=== PATIENT | female | born 1945 | race Caucasian/White ===

== ENCOUNTER → 2017-04-02 09:01 | Outpatient (CLI) | payer MEDICARE, SELFPAY ==
[2017-04-02 14:05] LABS: Alanine Aminotransferase 19 U/L (12-78); Albumin Level 3.1 gm/dL (3.4-5.0); Albumin/Globulin Ratio 0.9 (1.1-1.8); Alkaline Phosphatase 61 U/L (46-116); Anion Gap 12.1 mEq/L (5-15); Aspartate Amino Transferase 17 U/L (15-37); Bilirubin,Total 0.3 mg/dL (0.2-1.0); Blood Urea Nitrogen 25 mg/dL (7-18); Calcium 8.7 mg/dL (8.5-10.1); Carbon Dioxide 29 mmol/L (21.0-32.0); Chloride 106 mmol/L (98-107); Creatinine,Serum 1.26 mg/dL (0.55-1.02); Estimated Glomerular Filt Rate 42 ml/min (>60); GFR (African American) 51 ML/MIN (>60); Globulin 3.6 gm/dl (1.3-3.2); Glucose 126 mg/dL (74-106); Potassium 4.1 mmoL/L (3.5-5.1); Sodium 143 mmol/L (136-145); Total Protein,Serum 6.7 gm/dL (6.4-8.2)
[2017-04-02 14:43] LABS: Hemoglobin A1C 5.8 % (0.0-7.0)
== END ==
PROVIDERS: PCP Internal Medicine Adolescent Medicine; Visit Provider Internal Medicine Adolescent Medicine
DX: E11.65 Type 2 diabetes mellitus with hyperglycemia (principal); I10 Essential (primary) hypertension
CPT/HCPCS: 36415; 80053; 83036

== ENCOUNTER 2017-05-21 13:00 | Outpatient (RCR) | payer MEDICARE, SELFPAY ==
--- NOTE | 2017-04-02 13:46 | HMH.PTOPWND ---
Rehab Outpt Wound Evaluation Rehab OP Wound Evaluation Start: 04/02/17 13:32 Freq: Status: Active Protocol: Document 04/02/17 13:32 PHORMARIELOS (Rec: 04/02/17 13:45 PHORNE [id number]) Electronically Signed By Go Benz, PT 04/02/17 13:32 Subjective/History History History Pt presents with c/o mild discomfort ion the left axillary region and left UE ~ 2 yrs s/p left side lumpectomy with ~ 20 lymph nodes resected. Pt reports she underwent 30 radiation treatments after surgery, but no chemotherapy. She reports no current pain. PMH: HTN, DM, ADRIANO. Subjective Subjective Pt currently reports only minimal discomfort with certain activities using the left UE, but does have residual numbness throughout the left shld since her surgery. Lymphedema Eval Classification of Lymphedema Secondary Lymphedema Yes Post-Surgical Lymphedema Yes Stage of Lymphedema Lymphedema stages Stage 0 (subjective c/o heaviness and aching) Skin Changes Dry Skin Yes Pain Scale Pain Scale (0-10) 0 Radiation Therapy Has received radiation therapy yes Affected Extremities Areas Affected by Lymphedema/Edema Left Upper Extremity Wound Problems/Impairments Impairments Problems/Impairmments Increased Edema Lymphedema Present Impaired Self Care/Self Management Prognosis Rehab Potential Good Clinical Impression Consistent with Diagnosis Yes Short Term Goals Number of Weeks 4 Patient to be Ind w/ Lymphedema Self Yes Massage Technique Decrease Girth Measurments by (cm) Yes: by 5 cm Investigator Fraud Goals Number of Weeks 8 Patient to be Ind w/ Lymphedema Yes Management Patient to Adhere Lymphedema Precautions Yes Decrease Girth Measurments by (cm) Yes: by 10 cm Outpatient Therapy Plan of Care Treatment Plan May Include Therapeutic Exercise Including Home Yes Exercise Program Manual Therapy Techniques Yes Neuromuscular Re-education Yes Massage Yes Manual Lymphatic Drainage Yes Eval/Re-Eval Yes Frequency Times per week 2-3 Tavo
== END 2017-05-21 13:01 | disposition home or self-care (01) ==
LOC: PT 13:00
PROVIDERS: Family Provider Internal Medicine Adolescent Medicine; PCP Internal Medicine Adolescent Medicine; Visit Provider Nurse Practitioner
DX: I89.0 Lymphedema, not elsewhere classified (principal)
CPT/HCPCS: 97110; 97140; 97162

== ENCOUNTER 2017-08-12 23:12 | Observation (INO) ==
[2017-08-12 23:37] LABS: Basophils % 0.3 % (0.1-2.0); Eosinophils # 0.1 K/mm3 (0.0-0.4); Eosinophils % 1.3 % (0.1-12.0); Hematocrit 34.5 % (37.0-47.0); Hemoglobin 10.8 g/dL (12.2-16.2); Lymphocytes # 1.6 K/mm3 (0.7-4.5); Lymphocytes % 21.5 K/mm3 (10-50); Mean Corpuscular HGB Conc 31.4 g/dL (31.8-35.4); Mean Corpuscular Hemoglobin 28.6 pg (27.0-31.2); Mean Platelet Volume 7.1 fl (7.4-10.4); Monocytes # 0.5 K/mm3 (0.1-1.0); Monocytes % 6.2 % (1.7-9.3); Neutrophils # 5.3 K/mm3 (1.8-7.8); Neutrophils % 70.8 % (37.0-80.0); Platelet Count 301 K/mm3 (142-424); Red Blood Count 3.79 M/mm3 (4.20-5.40); Red Cell Distribution Width 13.8 % (11.5-17.5); White Blood Count 7.5 K/mm3 (4.8-10.8)
[2017-08-12 23:54] LABS: Amylase 36 U/L (25-125); Anion Gap 11.8 mEq/L (5-15); Blood Urea Nitrogen 20 mg/dL (7-18); Calcium 9.5 mg/dL (8.5-10.1); Carbon Dioxide 29 mmol/L (21.0-32.0); Chloride 103 mmol/L (98-107); Glucose 175 mg/dL (74-106); Lipase 302 u/L (73-393); Potassium 3.8 mmoL/L (3.5-5.1); Sodium 140 mmol/L (136-145)
[2017-08-13 00:01] LABS: Microscopic, Urine URINE MICROSCOPIC (MICROSCOPIC)
[2017-08-13 00:03] LABS: Appearance,Urine CLEAR (Clear); Bilirubin,Urine Negative (Negative); Blood, Urine TRACE-I (Negative); Color,Urine YELLOW (Yellow); Glucose,Urine (UA) Negative (Negative); Ketones,Urine Negative (Negative); Leukocyte Esterase,Urine TRACE (Negative); Protein,Urine TRACE (Negative); Specific Gravity, Urine 1.015 (1.005-1.030); Urobilinogen,Urine 0.2 EU/dl (0.2)
[2017-08-13 00:20] LABS: Bacteria,Urine 1+ /lpf; Hyaline Casts,Urine Occasional #/lpf (0); Mucus,Urine 1+ /lpf
--- NOTE | 2017-08-13 00:57 | Emergency Department Note ---
ED Disposition Clinical Impression: Renal insufficiency, Heart murmur, systolic Cholelithiasis Qualifiers: Cholelithiasis location: gallbladder Cholecystitis presence: without cholecystitis Biliary obstruction: without biliary obstruction Qualified Code(s) : K80.20 - Calculus of gallbladder without cholecystitis without obstruction Anemia Qualifiers: Anemia type: unspecified type Qualified Code(s): D64.9 - Anemia, unspecified Disposition: Admitted as Observation Condition on Discharge: Good - Critical Care Critical Care Time: No Attestation: On 08/12/17, the high probability of a clinically significant, sudden or life threatening deterioration of the following system(s) required my full and direct attention, intervention and personal management. The time I documented below is in addition to time spent performing reported procedures but includes the following listed in this critical care notation. Medical Decision Making - Medical Records Medical records reviewed: Yes: I reviewed the patient's medical records. - Lobo Inquiry Pt receiving controlled substance: No Vital Signs: 08/12/17 23:13 08/12/17 23:16 08/13/17 00:09 Temperature 98.2 F 98.2 F Temperature Source Oral Oral Pulse Rate [Right Brachial] 111 H 111 H 84 Respiratory Rate 18 18 16 Blood Pressure [Right Arm] 201/98 197/160 145/76 Blood Pressure Mean [Right Arm] 132 172 99 Blood Pressure Source [Right Arm] Automatic Cuff Automatic Cuff Blood Pressure Position [Right Arm] Sitting 02 Sat by Pulse Oximetry 92 L 92 L 94 L Oxygen Delivery Method Room Air Room Air Room Air 08/13/17 01:30 Temperature 98.9 F Temperature Source Oral Pulse Rate [Right Brachial] 78 Respiratory Rate 16 Blood Pressure [Right Arm] 157/89 Blood Pressure Mean [Right Arm] 111 Blood Pressure Source [Right Arm] Blood Pressure Position [Right Arm] 02 Sat by Pulse Oximetry 95 Oxygen Delivery Method Room Air - Lab Data Lab results reviewed: Yes: I reviewed the patient's lab results. Lab Results 08/12/17 23:18: POC Glucose 180 H 08/12/17 23:30: WBC 7.5, RBC 3.79 L, Hgb 10.8 L, Hct 34.5 L, MCV 91.0, MCH 28.6 , MCHC 31.4 L, RDW 13.8, Plt Count 301, MPV 7.1 L, Neut % (Auto) 70.8, Lymph % ( Auto) 21.5, [place] % (Auto) 6.2, Eos % (Auto) 1.3, Baso % (Auto) 0.3, Neut # (Auto ) 5.3, Lymph # (Auto) 1.6, [place] # (Auto) 0.5, Eos # (Auto) 0.1, Baso # (Auto) 0.0 08/12/17 23:30: Sodium 140, Potassium 3.8, Chloride 103, Carbon Dioxide 29, Anion Gap 11.8, BUN 20 H, Creatinine 1.54 H, Estimated Creat Clear 57, Estimated GFR 33 L, Est GFR ( Amer) 40 L, Glucose 175 H, Calcium 9.5, Troponin I < 0.02, Amylase 36, Lipase 302 08/12/17 23:58: Urine Color Yellow, Urine Appearance Clear, Urine pH 7.0, Ur Specific [place] 1.015, Urine Protein Trace, Urine Glucose (UA) Negative, Urine Ketones Negative, Urine Blood Trace-i, Urine Nitrate Negative, Urine Bilirubin Negative, Urine Urobilinogen 0.2, Ur Leukocyte Esterase Trace, Urine RBC 5-10, Urine WBC 3-5, Ur Squamous Epith Cells 3-5, Urine Bacteria 1+, Hyaline Casts Occasional, Urine Mucus 1+ Result diagrams: 08/12/17 23:30 08/12/17 23:30 Orders (Tests/Meds): ORDERS Category Date Time Status CT abdomen pelvis wo con Stat Cat Scan 08/12/17 23:23 Taken XR chest 2V Stat Exams 08/12/17 23:[address]/Nse Stat Y 08/12/17 23:23 Ordered - CT Data CT Scan: Abdomen, Pelvis Time Received: 01:[address] Reviewed: Yes: I have viewed the radiologist's interpretation Preliminary Findings: Abnormal (gallstones) - ECG Data Tracing #1 I reviewed this ECG and interpreted as documented below: Normal Sinus Rhythm: Yes Ischemic changes: non-specific ST-T wave changes - Physician Consults Physician Consulted: alexi Reason -: Admission Nausea/Vomiting/Diarrhea HPI - General Chief complaint: Dizziness Stated complaint: Right side pain, dizzy Time Seen by Provider: 08/13/17 00:53 Mode of Arrival: Ambulatory Source of Information: Patient, Medical Record Limitations: No Limitations Description of Symptoms (Recalled from ER Triage Doc. by RN): Reports RUQ pain that started this afternoon. Reports she has also been dizzy. Reports high blood sugar today, but reports she got it down to 133 earlier. - History of Present Illness HPI Narrative: dizzyness earlier and then rt upper abd pain with hx of gb disease MD complaint: nausea, abdominal pain Onset (ago): day(s) Associated Abdominal Pain: Yes Location of pain: RUQ Severity: severe Consistency: colicky Exacerbating factors: eating - Related Data Home Medications Medication Instructions Recorded Confirmed anastrozole 1 mg tablet 1 mg PO DAILY 08/10/17 08/12/17 carvedilol 6.25 mg tablet 6.25 mg PO DAILY 08/10/17 08/12/17 lisinopril 20 1 tab PO DAILY 08/10/17 08/12/17 mg-hydrochlorothiazide 25 mg tablet meloxicam 15 mg tablet 15 mg PO DAILY 08/10/17 08/12/17 pioglitazone 30 mg tablet 30 mg PO DAILY 08/10/17 08/12/17 Allergies Allergy/AdvReac Type Severity Reaction Status Date / Time No Known Allergies Allergy Verified 08/10/17 10:10 [facility] History I have reviewed the patient's past medical history: Yes Medical History: Reports:: Cancer, Diabetes Mellitus Type 1, Hypertension Denies:: Diabetes Mellitus Type 2, MRSA Laterality Cases: Left: Breast Biopsy Amputation: No Fractures: No - Social History Smoking Status: Never smoker Alcohol Intake: never Substance Use Type: denies use - Psychiatric History Expresses thoughts of harming self/others: None Suicide Plan Description: No Plan Family Hx:: No significant family history ROS Obtained: Yes All systems reviewed & no additional complaints - Constitutional Constitutional: Denies fever(s) - Eyes Eyes: Denies change in vision - ENT Ears, Nose, Mouth, and Throat: Denies sore throat - Cardiovascular Cardiovascular: Denies chest pain at rest - Respiratory Respiratory: No chest congestion, No cough - Gastrointestinal Gastrointestingal: Reports: as per HPI, abdominal pain, nausea, vomiting. Denies: diarrhea, black, tarry stools - Genitourinary Female Genitourinary: Denies hematuria - Musculoskeletal Musculoskeletal: Denies joint pain, Denies joint swelling - Integumentary/Breasts Skin/Breast: Denies rash - Neurologic Neurologic: Reports dizziness, Denies headache(s), Denies seizure-like activity Physical Exam - General General appearance: alert, in no apparent distress - Head Head exam: normocephalic - Eye Eye exam: Present: PERRL, EOMI. Absent: scleral icterus - ENT ENT exam: Present: mucous membranes dry - Neck Neck exam: Present: trachea midline - Respiratory Respiratory exam: Present: normal lung sounds bilaterally. Absent: respiratory distress - Cardiovascular Cardiovascular exam: Present: regular rate, systolic murmur - Abdominal Exam Abdominal exam: Present: soft, tenderness, Godwin's sign Abdominal tenderness: Present: RUQ, moderate - Extremities Exam Extremities exam: Absent: calf tenderness - Back Exam Back exam: Absent: CVA tenderness (R) - Neurological Exam Neurological exam: Present: alert, oriented X3, CN II-XII intact - Psychiatric Psychiatric exam: Present: normal affect - Skin Skin exam: Absent: rash
[2017-08-13 01:59] LABS: Bilirubin,Direct 0.3 mg/dL (0.0-0.2); Bilirubin,Indirect 0.4 mg/dL (0.0-0.9); Bilirubin,Total 0.7 mg/dL (0.2-1.0); Total Protein,Serum 7.5 gm/dL (6.4-8.2)
--- NOTE | 2017-08-13 07:07 | Consult Report ---
*Admission Date: 08/13/17 *Chief complaint: RUQ pain *History of present illness: This is a 71yo female seen in consultation from Dr. Newman for evaluation regarding gallbladder disease. She presented to the emergency department overnight with increasing pain in the right upper quadrant. She states that she has a known history of "gallbladder trouble". No jaundice. No fevers. She states that she "feels fine now". Right upper quadrant ultrasound pending. Review of Systems - Constitutional Denies chills - Eyes Denies change in vision - ENT Denies change in voice - *Cardiovascular Denies chest pain - *Respiratory Denies cough - *Gastrointestinal Reports abdominal pain - *Neurologic Reports dizziness, Denies headache(s), Denies seizure-like activity - Hematologic/Lymphatic Denies easy bleeding [facility] History Medical History: Reports:: Cancer (LYMPH NODES), Diabetes Mellitus Type 2, Hypertension Denies:: Diabetes Mellitus Type 1, MRSA Other Medical History: Reports: Anemia, Arthritis, Cataracts, Radiation Therapy , Sinus Problems Laterality Cases: Left: Breast Biopsy Other Surgeries: Yes: Hysterectomy-Total Amputation: No Fractures: No - *Social History Educational Level: Completed High School Smoking Status: Never smoker Alcohol Intake: never Substance Use Type: denies use Occupational Status: retired Housing: house - Psychiatric History Expresses thoughts of harming self/others: None Suicide Plan Description: No Plan *Family Hx:: Cancer Meds Home Medications Medication Instructions Recorded Confirmed Type anastrozole 1 mg tablet 1 mg PO DAILY 08/10/17 08/13/17 History carvedilol 6.25 mg tablet 6.25 mg PO DAILY 08/10/17 08/12/17 History lisinopril 20 1 tab PO DAILY 08/10/17 08/12/17 History mg-hydrochlorothiazide 25 mg tablet meloxicam 15 mg tablet 15 mg PO DAILY 08/10/17 08/12/17 History pioglitazone 30 mg tablet 30 mg PO DAILY 08/10/17 08/12/17 History Allergies Allergy/AdvReac Type Severity Reaction Status Date / Time No Known Allergies Allergy Verified 08/10/17 10:10 Exam Vital signs and Labs for Last 24 Hours: Temp Pulse Resp BP Pulse Ox 97.8 F 70 18 144/77 98 08/13/17 04:00 08/13/17 04:00 08/13/17 04:00 08/13/17 04:00 08/13/17 04:00 Laboratory Results - last 24 hr 08/12/17 23:18: POC Glucose 180 H 08/12/17 23:30: WBC 7.5, RBC 3.79 L, Hgb 10.8 L, Hct 34.5 L, MCV 91.0, MCH 28.6 , MCHC 31.4 L, RDW 13.8, Plt Count 301, MPV 7.1 L, Neut % (Auto) 70.8, Lymph % ( Auto) 21.5, [place] % (Auto) 6.2, Eos % (Auto) 1.3, Baso % (Auto) 0.3, Neut # (Auto ) 5.3, Lymph # (Auto) 1.6, [place] # (Auto) 0.5, Eos # (Auto) 0.1, Baso # (Auto) 0.0 08/12/17 23:30: Sodium 140, Potassium 3.8, Chloride 103, Carbon Dioxide 29, Anion Gap 11.8, BUN 20 H, Creatinine 1.54 H, Estimated Creat Clear 57, Estimated GFR 33 L, Est GFR ( Amer) 40 L, Glucose 175 H, Calcium 9.5, Troponin I < 0.02, Amylase 36, Lipase 302 08/12/17 23:58: Urine Color Yellow, Urine Appearance Clear, Urine pH 7.0, Ur Specific [place] 1.015, Urine Protein Trace, Urine Glucose (UA) Negative, Urine Ketones Negative, Urine Blood Trace-i, Urine Nitrate Negative, Urine Bilirubin Negative, Urine Urobilinogen 0.2, Ur Leukocyte Esterase Trace, Urine RBC 5-10, Urine WBC 3-5, Ur Squamous Epith Cells 3-5, Urine Bacteria 1+, Hyaline Casts Occasional, Urine Mucus 1+ 08/13/17 00:00: Total Bilirubin 0.7, Direct Bilirubin 0.3 H, Indirect Bilirubin 0.4, AST 107 H, ALT 65, Alkaline Phosphatase 76, Total Protein 7.5, Albumin 3.0 L 08/13/17 06:14: POC Glucose 134 H I & O for Last 24 hours: Intake & Output 08/10/17 08/11/17 08/12/17 08/13/17 11:59 11:59 11:59 11:59 Intake Total 184 / 184 Balance 184 / 184 Weight 235 lb 6 oz - Constitutional no acute distress - *Routine Neck Exam Present: full ROM - *Routine Cardiovascular Exam Present: RRR - *Routine Abdominal Exam Present: soft Comments: minimal TTP in epigastrum and RUQ Results - Labs 08/12/17 23:30 08/12/17 23:30 Laboratory Results - last 24 hr 08/12/17 23:18: POC Glucose 180 H 08/12/17 23:30: WBC 7.5, RBC 3.79 L, Hgb 10.8 L, Hct 34.5 L, MCV 91.0, MCH 28.6 , MCHC 31.4 L, RDW 13.8, Plt Count 301, MPV 7.1 L, Neut % (Auto) 70.8, Lymph % ( Auto) 21.5, [place] % (Auto) 6.2, Eos % (Auto) 1.3, Baso % (Auto) 0.3, Neut # (Auto ) 5.3, Lymph # (Auto) 1.6, [place] # (Auto) 0.5, Eos # (Auto) 0.1, Baso # (Auto) 0.0 08/12/17 23:30: Sodium 140, Potassium 3.8, Chloride 103, Carbon Dioxide 29, Anion Gap 11.8, BUN 20 H, Creatinine 1.54 H, Estimated Creat Clear 57, Estimated GFR 33 L, Est GFR ( Amer) 40 L, Glucose 175 H, Calcium 9.5, Troponin I < 0.02, Amylase 36, Lipase 302 08/12/17 23:58: Urine Color Yellow, Urine Appearance Clear, Urine pH 7.0, Ur Specific [place] 1.015, Urine Protein Trace, Urine Glucose (UA) Negative, Urine Ketones Negative, Urine Blood Trace-i, Urine Nitrate Negative, Urine Bilirubin Negative, Urine Urobilinogen 0.2, Ur Leukocyte Esterase Trace, Urine RBC 5-10, Urine WBC 3-5, Ur Squamous Epith Cells 3-5, Urine Bacteria 1+, Hyaline Casts Occasional, Urine Mucus 1+ 08/13/17 00:00: Total Bilirubin 0.7, Direct Bilirubin 0.3 H, Indirect Bilirubin 0.4, AST 107 H, ALT 65, Alkaline Phosphatase 76, Total Protein 7.5, Albumin 3.0 L 08/13/17 06:14: POC Glucose 134 H Assessment and Plan (1) Anemia Current visit: Yes Status: Acute Qualifiers: Anemia type: unspecified type Category: Medical Code(s): D64.9 - Anemia, unspecified further evaluation ongoing (2) Cholelithiasis Current visit: Yes Status: Acute Qualifiers: Cholelithiasis location: gallbladder Cholecystitis presence: without cholecystitis Biliary obstruction: without biliary obstruction Qualified Code(s): K80.20 - Calculus of gallbladder without cholecystitis without obstruction Category: Medical Code(s): K80.20 - Calculus of gallbladder without cholecystitis without obstruction The patient is essentially without symptoms this morning. Right upper quadrant ultrasound has been ordered and is scheduled to be performed this morning. Follow-up results of right upper quadrant ultrasound. Unless the patient develops an acute change in her overall condition, she is stable from a surgical standpoint for discharge home after ultrasound is complete with close outpatient follow-up with regard to cholelithiasis and anemia. (3) Renal insufficiency Current visit: Yes Status: Acute Category: Medical Code(s): N28.9 - Disorder of kidney and ureter, unspecified
--- NOTE | 2017-08-13 07:20 | Pharmacy Consult Notes ---
[facility] Pharmacy VTE Monitoring - Patient Demographics Admission date: 08/13/17 Report Date: 08/13/17 Time: 07:20 Allergies/Adverse Reactions: Patient Allergies No Known Allergies Allergy (Verified 08/10/17 10:10) Height: 1.73 m Weight: 106.764 kg Patient Problems: Current Active Problems Cholelithiasis (Acute) Anemia (Acute) Renal insufficiency (Acute) Heart murmur, systolic (Acute) - VTE Risk Labs: VTE Related Lab Results Hgb 10.8 g/dL (12.2-16.2) L 08/12/17 23:30 Hct 34.5 % (37.0-47.0) L 08/12/17 23:30 Plt Count 301 K/mm3 (142-424) 08/12/17 23:30 BUN 20 mg/dL (7-18) H 08/12/17 23:30 Creatinine 1.54 mg/dL (0.55-1.02) H 08/12/17 23:30 Estimated Creat Clear 57 mL/min (0-300) 08/12/17 23:30 Was VTE Risk Assessment Performed: Yes VTE Score: 2 VTE Risk Level: Low Risk Clinical Trial Participant: No - Prophylaxis VTE Prophylaxis Ordered?: Yes Types of VTE Prophylaxis: TEDS Knee High Location of Applied Device: Not Applicable
[2017-08-13 07:47] LABS: Albumin Level 2.7 gm/dL (3.4-5.0); Albumin/Globulin Ratio 0.7 (1.1-1.8); Bilirubin,Total 1.2 mg/dL (0.2-1.0); Calcium 9.2 mg/dL (8.5-10.1); Globulin 4.1 gm/dl (1.3-3.2); Total Protein,Serum 6.8 gm/dL (6.4-8.2)
--- NOTE | 2017-08-13 08:05 | H&P/Discharge Summary ---
General - General Admission date:: 08/13/17 Discharge date: 08/13/17 *Admission Date: 08/13/17 *Chief complaint: Abdominal pain *History of present illness: She presented to the emergency department overnight with increasing pain in the right upper quadrant. She states that she has a known history of "gallbladder trouble". No jaundice. No fevers. She states that she "feels fine now". [facility] History I have reviewed the patient's past medical history: Yes Medical History: Reports:: Cancer (LYMPH NODES), Diabetes Mellitus Type 2, Hypertension Denies:: Diabetes Mellitus Type 1, MRSA Other Medical History: Reports: Anemia, Arthritis, Cataracts, Radiation Therapy , Sinus Problems Laterality Cases: Left: Breast Biopsy Other Surgeries: Yes: Hysterectomy-Total Amputation: No Fractures: No - *Social History Educational Level: Completed High School Smoking Status: Never smoker Alcohol Intake: never Substance Use Type: denies use Occupational Status: retired Housing: house - Psychiatric History Expresses thoughts of harming self/others: None Suicide Plan Description: No Plan *Family Hx:: Cancer Review of Systems - Review of Systems Review of systems:: unable to obtain, other, pertinent systems reviewed and negative unless documented below - *Neurologic Reports dizziness, Denies headache(s), Denies seizure-like activity Exam Vital signs and Labs for Last 24 Hours: Temp Pulse Resp BP Pulse Ox 97.8 F 70 18 144/77 98 08/13/17 04:00 08/13/17 04:00 08/13/17 04:00 08/13/17 04:00 08/13/17 04:00 Laboratory Results - last 24 hr 08/12/17 23:18: POC Glucose 180 H 08/12/17 23:30: WBC 7.5, RBC 3.79 L, Hgb 10.8 L, Hct 34.5 L, MCV 91.0, MCH 28.6 , MCHC 31.4 L, RDW 13.8, Plt Count 301, MPV 7.1 L, Neut % (Auto) 70.8, Lymph % ( Auto) 21.5, [place] % (Auto) 6.2, Eos % (Auto) 1.3, Baso % (Auto) 0.3, Neut # (Auto ) 5.3, Lymph # (Auto) 1.6, [place] # (Auto) 0.5, Eos # (Auto) 0.1, Baso # (Auto) 0.0 08/12/17 23:30: Sodium 140, Potassium 3.8, Chloride 103, Carbon Dioxide 29, Anion Gap 11.8, BUN 20 H, Creatinine 1.54 H, Estimated Creat Clear 57, Estimated GFR 33 L, Est GFR ( Amer) 40 L, Glucose 175 H, Calcium 9.5, Troponin I < 0.02, Amylase 36, Lipase 302 08/12/17 23:58: Urine Color Yellow, Urine Appearance Clear, Urine pH 7.0, Ur Specific [place] 1.015, Urine Protein Trace, Urine Glucose (UA) Negative, Urine Ketones Negative, Urine Blood Trace-i, Urine Nitrate Negative, Urine Bilirubin Negative, Urine Urobilinogen 0.2, Ur Leukocyte Esterase Trace, Urine RBC 5-10, Urine WBC 3-5, Ur Squamous Epith Cells 3-5, Urine Bacteria 1+, Hyaline Casts Occasional, Urine Mucus 1+ 08/13/17 00:00: Total Bilirubin 0.7, Direct Bilirubin 0.3 H, Indirect Bilirubin 0.4, AST 107 H, ALT 65, Alkaline Phosphatase 76, Total Protein 7.5, Albumin 3.0 L 08/13/17 06:14: POC Glucose 134 H 08/13/17 07:04: Sodium 143, Potassium 4.0, Chloride 106, Carbon Dioxide 27, Anion Gap 14.0, BUN 18, Creatinine 1.36 H, Estimated Creat Clear 64, Estimated GFR 38 L, Est GFR ( Amer) 46 L, Glucose 136 H D, Calcium 9.2, Total Bilirubin 1.2 H, AST 192 H D, ALT 129 H D, Alkaline Phosphatase 87, Total Protein 6.8, Albumin 2.7 L, Globulin 4.1 H, Albumin/Globulin Ratio 0.7 L I & O for Last 24 hours: Intake & Output 08/10/17 08/11/17 08/12/17 08/13/17 11:59 11:59 11:59 11:59 Intake Total 184 / 184 Balance 184 / 184 Weight 235 lb 6 oz Narrative: Patient is pleasant, alert, oriented 3. Lungs are clear bilaterally, heart rate regular. Abdomen is soft, much less pain per patient. Normal bowel sounds. No edema noted. Hospital Course Hospital Course: Patient was admitted, did well overnight with no further pain. Surgery was consulted. Agree with recommendations. Plan to discharge home after ultrasound Results Labs on day of discharge: Labs from last 24 hours 08/13/17 08/13/17 08/13/17 07:04 06:14 00:00 WBC RBC Hgb Hct MCV MCH MCHC RDW Plt Count MPV Neut % (Auto) Lymph % (Auto) [place] % (Auto) Eos % (Auto) Baso % (Auto) Neut # (Auto) Lymph # (Auto) [place] # (Auto) Eos # (Auto) Baso # (Auto) Sodium 143 Potassium 4.0 Chloride 106 Carbon Dioxide 27 Anion Gap 14.0 BUN 18 Creatinine 1.36 H Estimated Creat Clear 64 Estimated GFR 38 L Est GFR ( Amer) 46 L Glucose 136 H D POC Glucose 134 H Calcium 9.2 Total Bilirubin 1.2 H 0.7 Direct Bilirubin 0.3 H Indirect Bilirubin 0.4 AST 192 H D 107 H ALT 129 H D 65 Alkaline Phosphatase 87 76 Troponin I Total Protein 6.8 7.5 Albumin 2.7 L 3.0 L Globulin 4.1 H Albumin/Globulin Ratio 0.7 L Amylase Lipase Urine Color Urine Appearance Urine pH Ur Specific [place] Urine Protein Urine Glucose (UA) Urine Ketones Urine Blood Urine Nitrate Urine Bilirubin Urine Urobilinogen Ur Leukocyte Esterase Urine RBC Urine WBC Ur Squamous Epith Cells Urine Bacteria Hyaline Casts Urine Mucus 08/12/17 08/12/17 08/12/17 23:58 23:30 23:30 WBC 7.5 RBC 3.79 L Hgb 10.8 L Hct 34.5 L MCV 91.0 MCH 28.6 MCHC 31.4 L RDW 13.8 Plt Count 301 MPV 7.1 L Neut % (Auto) 70.8 Lymph % (Auto) 21.5 [place] % (Auto) 6.2 Eos % (Auto) 1.3 Baso % (Auto) 0.3 Neut # (Auto) 5.3 Lymph # (Auto) 1.6 [place] # (Auto) 0.5 Eos # (Auto) 0.1 Baso # (Auto) 0.0 Sodium 140 Potassium 3.8 Chloride 103 Carbon Dioxide 29 Anion Gap 11.8 BUN 20 H Creatinine 1.54 H Estimated Creat Clear 57 Estimated GFR 33 L Est GFR ( Amer) 40 L Glucose 175 H POC Glucose Calcium 9.5 Total Bilirubin Direct Bilirubin Indirect Bilirubin AST ALT Alkaline Phosphatase Troponin I < 0.02 Total Protein Albumin Globulin Albumin/Globulin Ratio Amylase 36 Lipase 302 Urine Color Yellow Urine Appearance Clear Urine pH 7.0 Ur Specific [place] 1.015 Urine Protein Trace Urine Glucose (UA) Negative Urine Ketones Negative Urine Blood Trace-i Urine Nitrate Negative Urine Bilirubin Negative Urine Urobilinogen 0.2 Ur Leukocyte Esterase Trace Urine RBC 5-10 Urine WBC 3-5 Ur Squamous Epith Cells 3-5 Urine Bacteria 1+ Hyaline Casts Occasional Urine Mucus 1+ 08/12/17 23:18 WBC RBC Hgb Hct MCV MCH MCHC RDW Plt Count MPV Neut % (Auto) Lymph % (Auto) [place] % (Auto) Eos % (Auto) Baso % (Auto) Neut # (Auto) Lymph # (Auto) [place] # (Auto) Eos # (Auto) Baso # (Auto) Sodium Potassium Chloride Carbon Dioxide Anion Gap BUN Creatinine Estimated Creat Clear Estimated GFR Est GFR ( Amer) Glucose POC Glucose 180 H Calcium Total Bilirubin Direct Bilirubin Indirect Bilirubin AST ALT Alkaline Phosphatase Troponin I Total Protein Albumin Globulin Albumin/Globulin Ratio Amylase Lipase Urine Color Urine Appearance Urine pH Ur Specific [place] Urine Protein Urine Glucose (UA) Urine Ketones Urine Blood Urine Nitrate Urine Bilirubin Urine Urobilinogen Ur Leukocyte Esterase Urine RBC Urine WBC Ur Squamous Epith Cells Urine Bacteria Hyaline Casts Urine Mucus DS: Diagnosis - Discharge Diagnosis (1) Anemia Status: Acute (2) Cholelithiasis Status: Acute (3) Renal insufficiency Status: Acute Discharge Medications Discharge Medications: Home Medications Medication Instructions Recorded Confirmed Type anastrozole 1 mg tablet 1 mg PO DAILY 08/10/17 08/13/17 History carvedilol 6.25 mg tablet 6.25 mg PO DAILY 08/10/17 08/12/17 History lisinopril 20 1 tab PO DAILY 08/10/17 08/12/17 History mg-hydrochlorothiazide 25 mg tablet meloxicam 15 mg tablet 15 mg PO DAILY 08/10/17 08/12/17 History pioglitazone 30 mg tablet 30 mg PO DAILY 08/10/17 08/12/17 History Disposition Disposition: Home, Self-Care
== END 2017-08-13 11:30 | disposition home or self-care (01) ==
LOC: 2ND 23:12 → ER 23:12 → 2ND 08-13 02:17
PROVIDERS: ADMIT Internal Medicine Adolescent Medicine; ATTEND Internal Medicine Adolescent Medicine
CPT/HCPCS: 71020; 71046; 74176; 76705; 80048; 80053; 80076; 81001; 82150; 82962; 83690; 84484; 85025; 93005; 99284; G0378; J2405

== ENCOUNTER → 2017-08-19 10:24 | Outpatient (CLI) | payer MEDICARE, SELFPAY ==
--- NOTE | 2017-08-19 11:30 | MM_ITS ---
MM Dig screening mamm BI w/CAD CAD Screening INDICATION: Screening mammogram for breast cancer, history of breast cancer ORDERING PHYSICIAN: Luis Angel Escobedo MD PATIENT AGE: 71 years COMPARISON: 1017, 09/30/2016, 09/01/2016, 03/16/2015 TECHNIQUE: Standard CC and MLO images were obtained. R2 CAD reviewed. FINDINGS: There is average fibroglandular tissue. Scattered benign-appearing clusters of calcification are noted. Biopsy clip is present in the medial aspect of the right breast. There are postsurgical changes involving the upper outer aspect of the left breast was some parenchymal distortion and skin thickening and some mild prominence of the interstitial tissue consistent with postradiation changes and postsurgical changes. No malignant appearing mass or malignant appearing microcalcification. IMPRESSION: Postsurgical changes left breast. No evidence of malignancy BI-RADS Category: 2 Benign Finding(s) RECOMMENDED FOLLOW-UP: 1YR - 1 YEAR FOLLOW-UP (A letter has been sent to the patient regarding results of the study.)
== END ==
PROVIDERS: Family Provider Internal Medicine Adolescent Medicine; PCP Internal Medicine Adolescent Medicine; Visit Provider Surgery
DX: Z12.31 Encounter for screening mammogram for malignant neoplasm of breast (principal)
CPT/HCPCS: 77067

== ENCOUNTER → 2017-09-14 14:19 | Outpatient (CLI) | payer MEDICARE, SELFPAY ==
--- NOTE | 2017-09-14 14:22 | US_ITS ---
MM Dig mamm DX unilat RT CAD, US breast RT complete INDICATION: Palpable abnormality in the outer aspect of the right breast and axillary region with history of left breast cancer ORDERING PHYSICIAN: Dania Camarena PATIENT AGE: 72 years COMPARISON: 08/19/2017 and 10/16/2016 TECHNIQUE: Standard images performed along with right axillary tail view and right breast ultrasound FINDINGS: Average fibroglandular tissue. Scattered benign-appearing calcifications are once again noted and are not significantly changed. No mass is evident. No malignant-appearing microcalcifications. A clip is present in the medial aspect of the right breast. Right breast ultrasound: No suspicious solid breast mass is evident. There is however a small cyst measuring 5 mm at 11:00 near the nipple. Examination of the right axilla shows hypoechoic solid-appearing nodule measuring up to 3 x 2.8 cm corresponding to the area of palpable abnormality. This may represent an enlarged lymph node. CT of the chest suggested for more thorough evaluation. IMPRESSION: No suspicious breast lesion evident. There is however suggestion of adenopathy in the right axillary region. BI-RADS Category: 2 Benign Finding(s) regarding the breast RECOMMENDED FOLLOW-UP: IMM - IMMEDIATE FOLLOW-UP RECOMMENDED Recommend CT scan of the chest to include the axilla for possible adenopathy (A letter has been sent to the patient regarding results of the study.)
== END ==
PROVIDERS: Family Provider Internal Medicine Adolescent Medicine; PCP Internal Medicine Adolescent Medicine; Visit Provider Nurse Practitioner
DX: N63.11 Unspecified lump in the right breast, upper outer quadrant (principal); C50.912 Malignant neoplasm of unspecified site of left female breast; R59.0 Localized enlarged lymph nodes
CPT/HCPCS: 76641; 77065

== ENCOUNTER → 2018-01-06 09:46 | Outpatient (CLI) | payer MEDICARE, SELFPAY ==
[2018-01-06 13:46] LABS: Blood Urea Nitrogen 35 mg/dL (7-18); Estimated Glomerular Filt Rate 34 ml/min (>60); GFR (African American) 41 ML/MIN (>60)
== END ==
PROVIDERS: PCP Internal Medicine Adolescent Medicine; Visit Provider Nurse Practitioner
DX: C50.919 Malignant neoplasm of unspecified site of unspecified female breast (principal)
CPT/HCPCS: 36415; 82565; 84520

== ENCOUNTER → 2018-01-07 12:49 | Outpatient (CLI) | payer MEDICARE, SELFPAY ==
--- NOTE | 2018-01-07 14:21 | CT_ITS ---
CT chest wo con HISTORY: ITS.REASON: breast cancer breast cancer, right axillary lymph node ORDERING PHYSICIAN: Dania Camarena PATIENT AGE: 72 years COMPARISON: 06/20/2015 Technique: Axial images obtained with sagittal and coronal reformats. All CT scans at the facility use one or more dose reduction, viz: automated exposure control, ma/kV adjustment per patient size (including targeted exams where dose is matched to indication, i.e. head), or iterative reconstruction technique. FINDINGS: Patient refused IV contrast. The thyroid gland is slightly enlarged heterogeneous in nature. There are coronary artery calcifications. Normal heart size without evidence of pericardial effusion. No mediastinal or hilar mass or adenopathy. No axillary adenopathy is evident. Postsurgical change involves the left breast Mild fibrotic changes are present in the lung bases. No suspicious pulmonary nodules. No effusions or infiltrates. Calcified granulomas present in the left lower lobe. There is a 4 mm nodule in the left upper lobe laterally on image #38 series 3. This is nonspecific. There is a stable 4 mm nodule in the right upper lobe posteriorly image #24. No other nodules are apparent. No bony destructive process. There are degenerative changes in the thoracic spine. IMPRESSION: 1. No evidence of axillary adenopathy. No mediastinal or hilar adenopathy. 2. Small bilateral pulmonary nodules which are noncystic. Consider 6 month follow-up to confirm stability
== END ==
PROVIDERS: PCP Internal Medicine Adolescent Medicine; Visit Provider Nurse Practitioner
DX: C50.911 Malignant neoplasm of unspecified site of right female breast (principal)
CPT/HCPCS: 71250

== ENCOUNTER → 2018-06-16 09:51 | Outpatient (CLI) | payer MEDICARE, SELFPAY ==
[2018-06-16 14:33] LABS: Alanine Aminotransferase 16 U/L (12-78); Albumin Level 2.9 gm/dL (3.4-5.0); Albumin/Globulin Ratio 0.7 (1.1-1.8); Alkaline Phosphatase 55 U/L (46-116); Anion Gap 15.2 mEq/L (5-15); Aspartate Amino Transferase 17 U/L (15-37); Bilirubin,Total 0.2 mg/dL (0.2-1.0); Blood Urea Nitrogen 29 mg/dL (7-18); Calcium 8.9 mg/dL (8.5-10.1); Carbon Dioxide 26 mmol/L (21.0-32.0); Chloride 107 mmol/L (98-107); Chol/HDL Ratio 6.8 (1-3.5); Cholesterol 226 mg/dL (140-200); Creatinine,Serum 1.36 mg/dL (0.55-1.02); Estimated Glomerular Filt Rate 38 ml/min (>60); GFR (African American) 46 ML/MIN (>60); Glucose 121 mg/dL (74-106); HDL Cholesterol 33 mg/dL (29-89); LDL Cholesterol 159 mg/dL (0-130); Potassium 4.2 mmoL/L (3.5-5.1); Sodium 144 mmol/L (136-145); Total Protein,Serum 6.9 gm/dL (6.4-8.2); Triglycerides 171 mg/dL (30-200); VLDL Cholesterol 34 mg/dL (0-40)
[2018-06-16 14:35] LABS: Hemoglobin A1C 5.8 % (0.0-7.0)
== END ==
PROVIDERS: PCP Internal Medicine Adolescent Medicine; Visit Provider Internal Medicine Adolescent Medicine
DX: E11.65 Type 2 diabetes mellitus with hyperglycemia (principal); Z79.4 Long term (current) use of insulin
CPT/HCPCS: 36415; 80053; 80061; 83036

== ENCOUNTER → 2018-06-23 12:46 | Outpatient (CLI) | payer MEDICARE, SELFPAY ==
--- NOTE | 2018-06-23 12:48 | CT_ITS ---
CT chest wo con HISTORY: Follow-up breast cancer ITS.REASON: breast csncer ORDERING PHYSICIAN: Dania Camarena PATIENT AGE: 72 years COMPARISON: 01/07/2018 Technique: Axial images obtained following the administration of 75 mL of Optiray 350 . Sagittal, and coronal reformatted images are also generated and reviewed. All CT scans at the facility use one or more dose reduction, viz: automated exposure control, ma/kV adjustment per patient size (including targeted exams where dose is matched to indication, i.e. head), or iterative reconstruction technique. FINDINGS: There is some heterogeneous density of thyroid gland with mild enlargement of the isthmus. No mediastinal or hilar mass or adenopathy is evident. Coronary artery calcifications are present. There are minimal fibrotic changes in the right lung base with a faint 4 mm nodular opacity in the right posterior costophrenic sulcus. This is nonspecific not readily apparent on previous exam. In addition, there is a new 4 mm nodular opacity in the right lung base medially series 3 #73 partially calcified lymph node is present in the left pericardial area. A calcified granuloma is present in the left lower lobe. There are degenerative changes in the thoracic spine. Postsurgical changes are present involving the left breast. The exam includes the axilla. No axillary adenopathy is evident. No acute bony anomalies are apparent. There is a 10 mm stone within the left renal pelvis. This is incompletely imaged. IMPRESSION: 1. No mediastinal or axillary adenopathy. 2. There are 2 small nodular opacities in the right lung base at 4 mm each which are not readily apparent on the previous exam. These are indeterminant. Consider 3-6 month follow-up to confirm short-term stability 3. Left nephrolithiasis
== END ==
PROVIDERS: PCP Internal Medicine Adolescent Medicine; Visit Provider Nurse Practitioner
DX: C50.912 Malignant neoplasm of unspecified site of left female breast (principal)
CPT/HCPCS: 71250

== ENCOUNTER → 2018-06-24 11:24 | Outpatient (CLI) | payer MEDICARE, SELFPAY ==
--- NOTE | 2018-06-24 11:28 | US_ITS ---
US gallbladder HISTORY: ITS.REASON: RUQ PAIN ORDERING PHYSICIAN: Mike Alonso MD PATIENT AGE: 72 years Comparison: None FINDINGS: PANCREAS: Unremarkable. No obvious mass or abnormal fluid collection. No ductal dilatation LIVER: No focal liver lesions demonstrated. Homogeneous echogenicity. No intrahepatic biliary ductal dilatation evident RIGHT KIDNEY: Unremarkable. Normal size and echogenicity. No hydronephrosis GALLBLADDER: There are multiple gallstones present. No gallbladder wall thickening, or pericholecystic fluid is evident. The common bile duct is prominent at 11 to 12 mm. IMPRESSION: Cholelithiasis with prominent common bile duct. Common duct stone not excluded based on this exam. If the patient is MRI compatible and can breath-hold, then, MRCP may be of further value. Otherwise, CT of the abdomen without and with contrast may be of further value.
[2018-06-24 12:39] LABS: Basophils % 0.4 % (0.1-2.0); Eosinophils # 0.1 K/mm3 (0.0-0.4); Eosinophils % 1.4 % (0.1-12.0); Hematocrit 32.4 % (37.0-47.0); Hemoglobin 10.7 g/dL (12.2-16.2); Lymphocytes % 24.6 % (10-50); Mean Corpuscular HGB Conc 32.9 g/dL (31.8-35.4); Mean Corpuscular Hemoglobin 29.8 pg (27.0-31.2); Mean Corpuscular Volume 90.6 fl (81-99); Mean Platelet Volume 6.7 fl (7.4-10.4); Monocytes # 0.2 K/mm3 (0.1-1.0); Monocytes % 5.7 % (1.7-9.3); Neutrophils # 2.7 K/mm3 (1.8-7.8); Neutrophils % 67.9 % (37.0-80.0); Platelet Count 311 K/mm3 (142-424); Red Blood Count 3.58 M/mm3 (4.20-5.40); Red Cell Distribution Width 13.2 % (11.5-17.5)
[2018-06-24 13:13] LABS: Alanine Aminotransferase 228 U/L (12-78); Albumin Level 3.1 gm/dL (3.4-5.0); Albumin/Globulin Ratio 0.7 (1.1-1.8); Alkaline Phosphatase 87 U/L (46-116); Aspartate Amino Transferase 356 U/L (15-37); Bilirubin,Total 1.3 mg/dL (0.2-1.0); Blood Urea Nitrogen 24 mg/dL (7-18); Carbon Dioxide 28 mmol/L (21.0-32.0); Chloride 103 mmol/L (98-107); Creatinine,Serum 1.46 mg/dL (0.55-1.02); Estimated Glomerular Filt Rate 35 ml/min (>60); GFR (African American) 43 ML/MIN (>60); Globulin 4.3 gm/dl (1.3-3.2); Glucose 115 mg/dL (74-106); Lipase 344 u/L (73-393); Sodium 141 mmol/L (136-145); Total Protein,Serum 7.4 gm/dL (6.4-8.2)
== END ==
PROVIDERS: PCP Internal Medicine Adolescent Medicine; Visit Provider Internal Medicine Adolescent Medicine
DX: R10.11 Right upper quadrant pain (principal)
CPT/HCPCS: 36415; 76705; 80053; 83690; 85025

== ENCOUNTER 2018-06-24 22:40 | Inpatient (IN) ==
[2018-06-24 23:06] LABS: Basophils % 0.4 % (0.1-2.0); Eosinophils # 0.1 K/mm3 (0.0-0.4); Hematocrit 32.1 % (37.0-47.0); Hemoglobin 10.7 g/dL (12.2-16.2); Lymphocytes # 1.2 K/mm3 (0.7-4.5); Lymphocytes % 21.4 % (10-50); Mean Corpuscular HGB Conc 33.3 g/dL (31.8-35.4); Mean Corpuscular Hemoglobin 29.5 pg (27.0-31.2); Mean Corpuscular Volume 88.7 fl (81-99); Mean Platelet Volume 6.8 fl (7.4-10.4); Monocytes # 0.3 K/mm3 (0.1-1.0); Monocytes % 5.3 % (1.7-9.3); Neutrophils # 4.2 K/mm3 (1.8-7.8); Neutrophils % 71.9 % (37.0-80.0); Platelet Count 325 K/mm3 (142-424); Red Blood Count 3.62 M/mm3 (4.20-5.40); Red Cell Distribution Width 13.3 % (11.5-17.5); White Blood Count 5.8 K/mm3 (4.8-10.8)
[2018-06-24 23:23] LABS: Albumin Level 3.2 gm/dL (3.4-5.0); Anion Gap 13.6 mEq/L (5-15); Calcium 9.1 mg/dL (8.5-10.1); Potassium 3.6 mmoL/L (3.5-5.1)
[2018-06-24 23:28] LABS: Amylase 316 U/L (25-115)
--- NOTE | 2018-06-24 23:30 | Emergency Department Note ---
ED Disposition Clinical Impression: Renal insufficiency Cholelithiasis Qualifiers: Cholelithiasis location: gallbladder Cholecystitis presence: with cholecystitis Cholecystitis acuity: acute Biliary obstruction: without biliary obstruction Qualified Code(s): K80.00 - Calculus of gallbladder with acute cholecystitis without obstruction Pancreatitis Qualifiers: Chronicity: acute Pancreatitis type: biliary Acute pancreatitis complication: no infection or necrosis Qualified Code(s): K85.10 - Biliary acute pancreatitis without necrosis or infection Obesity Qualifiers: Obesity type: due to excess calories Obesity classification: adult class 2 (BMI 35 - 39.9) Serious obesity comorbidity presence: with serious comorbidity Body mass index: BMI 36.0-36.9 Qualified Code(s): E66.01 - Morbid (severe) obesity due to excess calories; Z68.36 - Body mass index (BMI) 36.0-36.9, adult Anemia Qualifiers: Anemia type: unspecified type Qualified Code(s): D64.9 - Anemia, unspecified Diabetes mellitus Qualifiers: Diabetes mellitus type: type 2 Diabetes mellitus bed bug exterminator insulin use: with bed bug exterminator use Diabetes mellitus complication status: with unspecified complications Qualified Code(s): E11.8 - Type 2 diabetes mellitus with unspecified complications; Z79.4 - detention (current) use of insulin Disposition: Admitted As Inpatient Condition on Discharge: Fair - Critical Care Critical Care Time: No Attestation: On 06/24/18, the high probability of a clinically significant, sudden or life threatening deterioration of the following system(s) required my full and direct attention, intervention and personal management. The time I documented below is in addition to time spent performing reported procedures but includes the following listed in this critical care notation. Medical Decision Making - Medical Records Medical records reviewed: Yes: I reviewed the patient's medical records. - Lobo Inquiry Pt receiving controlled substance: No Vital Signs: 06/24/18 22:41 06/24/18 22:57 06/24/18 23:37 Temperature 99.4 F Temperature Source Oral Pulse Rate [Right Brachial] 88 76 Respiratory Rate 18 16 Blood Pressure [Right Arm] 212/143 H 210/120 H Blood Pressure Mean [Right Arm] 166 150 Blood Pressure Source [Right Arm] Automatic Cuff Manual Cuff/ Auscultation Blood Pressure Position [Right Arm] Sitting Sitting 02 Sat by Pulse Oximetry 96 96 Oxygen Delivery Method Room Air Room Air - Lab Data Lab results reviewed: Yes: I reviewed the patient's lab results. Lab Results 06/24/18 22:52: WBC 5.8 D, RBC 3.62 L, Hgb 10.7 L, Hct 32.1 L, MCV 88.7, MCH 29.5, MCHC 33.3, RDW 13.3, Plt Count 325, MPV 6.8 L, Neut % (Auto) 71.9, Lymph % (Auto) 21.4, [place] % (Auto) 5.3, Eos % (Auto) 1.0, Baso % (Auto) 0.4, Neut # (Auto) 4.2, Lymph # (Auto) 1.2, [place] # (Auto) 0.3, Eos # (Auto) 0.1, Baso # (Auto) 0.0 06/24/18 22:52: Sodium 138, Potassium 3.6, Chloride 102, Carbon Dioxide 26, Anion Gap 13.6, BUN 26 H, Creatinine 1.56 H, Estimated Creat Clear 56, Estimated GFR 33 L, Est GFR ( Amer) 39 L, Glucose 133 H, Calcium 9.1, Total Bilirubin 1.3 H, AST 276 H, ALT 234 H, Alkaline Phosphatase 104, Total Protein 8.2, Albumin 3.2 L, Globulin 5.0 H, Albumin/Globulin Ratio 0.6 L 06/24/18 22:54: Amylase 316 H*, Lipase 3888 H Result diagrams: 06/24/18 22:52 06/24/18 22:52 Orders (Tests/Meds): ED MEDICATIONS Discontinued Medications Generic Name Dose Route Start Last Admin Trade Name Maxime PRN Reason Stop Dose Admin Ketorolac Tromethamine 15 mg 06/24/18 23:05 06/24/18 23:09 Toradol 30mg/Ml Vial IV 06/24/18 23:06 15 mg ONCE ONE Administration Morphine Sulfate 4 mg 06/24/18 23:49 06/24/18 23:56 Morphine 2mg/Ml Syringe IV 06/24/18 23:50 4 mg ONCE ONE Administration Ondansetron HCl 4 mg 06/24/18 23:05 06/24/18 23:10 Zofran 4mg/2ml Vial IV 06/24/18 23:06 4 mg ONCE ONE Administration Ondansetron HCl 4 mg 06/24/18 23:49 06/24/18 23:56 Zofran 4mg/2ml Vial IV 06/24/18 23:50 4 mg ONCE ONE Administration ORDERS Category Date Time Status CT abdomen pelvis wo con Stat Cat Scan 06/25/18 00:03 Taken - CT Data CT Scan: Abdomen, Pelvis Time Received: 02:[address] Reviewed: Yes: I have viewed the radiologist's interpretation Preliminary Findings: Abnormal (see report) - Physician Consults Physician Consulted: roshni Reason -: Admission Nausea/Vomiting/Diarrhea HPI - General Chief complaint: Abdominal Pain Stated complaint: ABD pain Time Seen by Provider: 06/24/18 23:00 Mode of Arrival: EMS Source of Information: Patient, EMS, Medical Record Limitations: No Limitations Description of Symptoms (Recalled from ER Triage Doc. by RN): Pt has abd pain, with n/v. Pt was here today for ultrasound, and showed gall stones. - History of Present Illness HPI Narrative: pt with upper abd pain assoc with n/v with known abd gallbladder u/s - no fever or rash MD complaint: nausea, vomiting, abdominal pain Onset (ago): day(s) Associated Abdominal Pain: Yes Location of pain: RUQ Severity: moderate Associated symptoms: denies other symptoms - Related Data Home Medications Medication Instructions Recorded Confirmed anastrozole 1 mg tablet 1 mg PO DAILY 08/10/17 06/25/18 carvedilol 6.25 mg tablet 6.25 mg PO DAILY 08/10/17 06/25/18 lisinopril 20 1 tab PO DAILY 08/10/17 06/25/18 mg-hydrochlorothiazide 25 mg tablet pioglitazone 30 mg tablet 30 mg PO DAILY 08/10/17 06/25/18 Allergies Allergy/AdvReac Type Severity Reaction Status Date / Time No Known Allergies Allergy Verified 06/24/18 22:49 [facility] [place] History - Hepatitis A Screen Drug use history?: No High risk sexual behaviors?: No History of sexually transmitted infection?: No Currently employed?: No Childcare worker?: No Do you have indoor plumbing?: Yes Do you have electricity?: Yes Attestation statement:: This patient has been screened for Hepatitis A risk factors. I have reviewed the patient's past medical history: Yes Medical History: Reports:: Cancer, Diabetes Mellitus Type 2, Hypertension Denies:: Diabetes Mellitus Type 1, MRSA Other Medical History: Reports: Anemia, Arthritis, Cataracts, Radiation Therapy, Sinus Problems Laterality Cases: Left: Breast Biopsy Other Surgeries: Yes: Cholecystectomy, Hysterectomy-Total Amputation: No Fractures: No - Social History Smoking Status: Never smoker Alcohol Intake: never Substance Use Type: denies use Occupational Status: retired Housing: house - Psychiatric History Expresses thoughts of harming self/others: None Suicide Plan Description: No Plan Family Hx:: Cancer ROS Obtained: Yes All systems reviewed & no additional complaints - Constitutional Constitutional: Denies fever(s) - Eyes Eyes: Denies photophobia - ENT Ears, Nose, Mouth, and Throat: Denies sore throat - Cardiovascular Cardiovascular: Denies chest pain - Respiratory Respiratory: No cough - Gastrointestinal Gastrointestingal: Denies: diarrhea - Genitourinary Female Genitourinary: Denies flank pain - Musculoskeletal Musculoskeletal: Denies joint pain - Integumentary/Breasts Skin/Breast: Denies rash - Neurologic Neurologic: Denies seizure-like activity Physical Exam - General General appearance: alert, obese - Head Head exam: normocephalic - Eye Eye exam: Present: PERRL, EOMI. Absent: scleral icterus - ENT ENT exam: Present: mucous membranes dry - Neck Neck exam: Present: trachea midline - Respiratory Respiratory exam: Present: normal lung sounds bilaterally. Absent: respiratory distress - Cardiovascular Cardiovascular exam: Present: regular rate, systolic murmur - Abdominal Exam Abdominal exam: Present: soft, tenderness, Godwin's sign Abdominal tenderness: Present: RUQ, moderate - Extremities Exam Extremities exam: Absent: calf tenderness - Neurological Exam Neurological exam: Present: alert, oriented X3, CN II-XII intact - Psychiatric Psychiatric exam: Present: normal affect - Skin Skin exam: Absent: rash
[2018-06-24 23:35] LABS: Albumin/Globulin Ratio 0.6 (1.1-1.8); Bilirubin,Total 1.3 mg/dL (0.2-1.0); Total Protein,Serum 8.2 gm/dL (6.4-8.2)
[2018-06-24 23:38] LABS: Lipase 3888 u/L (73-393)
--- NOTE | 2018-06-25 06:46 | Consult Report ---
*Admission Date: 06/25/18 *Chief complaint: Abdominal pain and nausea *History of present illness: This is a 72-year-old female with a known history of gallstones who presented to her primary care provider yesterday with increasing pain in the upper abdomen with some radiation to the back. She also noted significant nausea. An ultrasound of the abdomen revealed a somewhat dilated common bile duct with no definitive sign of choledocholithiasis. Cholelithiasis with no definitive evidence of cholecystitis was noted. Laboratory evaluation revealed slightly elevated liver function studies and a slightly elevated lipase. She "felt much better" and the decision was made to proceed with close outpatient observation in terms of repeat laboratory evaluation today and surgical outpatient evaluation early next week. Although she did initially feel "much much better", later in the evening she developed increasing pain and nausea and presented once again to the emergency department where laboratory evaluation revealed significant worsening of her pancreatic enzymes. She was admitted for further evaluation and management with surgical consultation. No fevers. No jaundice. Review of Systems - Constitutional Denies chills - Eyes Denies change in vision - *Cardiovascular Denies chest pain - *Respiratory Denies cough - *Gastrointestinal Reports abdominal pain, Reports nausea - *Neurologic Denies seizure-like activity - Hematologic/Lymphatic Denies easy bleeding H History Medical History: Reports:: Cancer (BREAST), Diabetes Mellitus Type 2, Hyp ertension Denies:: Diabetes Mellitus Type 1, MRSA *Have you ever received a pneumonia vaccine?: Yes *Have you received a flu vaccine this season?: No Other Medical History: Reports: Anemia, Arthritis, Cataracts, Radiation Therapy, Sinus Problems Laterality Cases: Left: Breast Biopsy, Lumpectomy Other Surgeries: Yes: Cholecystectomy, Hysterectomy-Total Amputation: No Fractures: No - *Social History Educational Level: Completed High School Smoking Status: Never smoker Alcohol Intake: never Substance Use Type: denies use *Occupational Status:: retired Housing: house *Travel in the last 8 weeks: None - Psychiatric History Expresses thoughts of harming self/others: None Suicide Plan Description: No Plan Family Hx:: Cancer Meds Home Medications Medication Instructions Recorded Confirmed Type anastrozole 1 mg tablet 1 mg PO DAILY 08/10/17 06/25/18 History carvedilol 6.25 mg tablet 6.25 mg PO DAILY 08/10/17 06/25/18 History lisinopril 20 1 tab PO DAILY 08/10/17 06/25/18 History mg-hydrochlorothiazide 25 mg tablet pioglitazone 30 mg tablet 30 mg PO DAILY 08/10/17 06/25/18 History Allergies Allergy/AdvReac Type Severity Reaction Status Date / Time No Known Allergies Allergy Verified 06/24/18 22:49 Exam Vital signs and Labs for Last 24 Hours: Temp Pulse Resp BP Pulse Ox 98.4 F 89 24 179/93 H 98 06/25/18 02:59 06/25/18 02:59 06/25/18 02:59 06/25/18 02:59 06/25/18 02:59 Laboratory Results - last 24 hr 06/24/18 22:52: WBC 5.8 D, RBC 3.62 L, Hgb 10.7 L, Hct 32.1 L, MCV 88.7, MCH 29.5, MCHC 33.3, RDW 13.3, Plt Count 325, MPV 6.8 L, Neut % (Auto) 71.9, Lymph % (Auto) 21.4, [place] % (Auto) 5.3, Eos % (Auto) 1.0, Baso % (Auto) 0.4, Neut # (Auto) 4.2, Lymph # (Auto) 1.2, [place] # (Auto) 0.3, Eos # (Auto) 0.1, Baso # (Auto) 0.0 06/24/18 22:52: Sodium 138, Potassium 3.6, Chloride 102, Carbon Dioxide 26, Anion Gap 13.6, BUN 26 H, Creatinine 1.56 H, Estimated Creat Clear 56, Estimated GFR 33 L, Est GFR ( Amer) 39 L, Glucose 133 H, Calcium 9.1, Total Bilirubin 1.3 H, AST 276 H, ALT 234 H, Alkaline Phosphatase 104, Total Protein 8.2, Albumin 3.2 L, Globulin 5.0 H, Albumin/Globulin Ratio 0.6 L 06/24/18 22:54: Amylase 316 H*, Lipase 3888 H 06/25/18 05:41: POC Glucose 113 H I & O for Last 24 hours: Intake & Output 06/22/18 06/23/18 06/24/18 06/25/18 11:59 11:59 11:59 11:59 Intake Total 243 / 243 Balance 243 / 243 Weight 237 lb - Constitutional no acute distress - *Routine Respiratory Exam Absent: respiratory distress - *Routine Cardiovascular Exam Present: RRR - *Routine Abdominal Exam Present: soft, tenderness Results - Labs 06/24/18 22:52 06/24/18 22:52 Laboratory Results - last 24 hr 06/24/18 22:52: WBC 5.8 D, RBC 3.62 L, Hgb 10.7 L, Hct 32.1 L, MCV 88.7, MCH 29.5, MCHC 33.3, RDW 13.3, Plt Count 325, MPV 6.8 L, Neut % (Auto) 71.9, Lymph % (Auto) 21.4, [place] % (Auto) 5.3, Eos % (Auto) 1.0, Baso % (Auto) 0.4, Neut # (Auto) 4.2, Lymph # (Auto) 1.2, [place] # (Auto) 0.3, Eos # (Auto) 0.1, Baso # (Auto) 0.0 06/24/18 22:52: Sodium 138, Potassium 3.6, Chloride 102, Carbon Dioxide 26, Anion Gap 13.6, BUN 26 H, Creatinine 1.56 H, Estimated Creat Clear 56, Estimated GFR 33 L, Est GFR ( Amer) 39 L, Glucose 133 H, Calcium 9.1, Total Bilirubin 1.3 H, AST 276 H, ALT 234 H, Alkaline Phosphatase 104, Total Protein 8.2, Albumin 3.2 L, Globulin 5.0 H, Albumin/Globulin Ratio 0.6 L 06/24/18 22:54: Amylase 316 H*, Lipase 3888 H 06/25/18 05:41: POC Glucose 113 H Assessment and Plan (1) Gallstone pancreatitis Current visit: Yes Status: Acute Category: Medical Code(s): K85.10 - Biliary acute pancreatitis without necrosis or infection Keep NPO for now Increase IVFs Plan for cholecystectomy when pancreatitis resolves
--- NOTE | 2018-06-25 07:42 | Pharmacy Consult Notes ---
[facility] Pharmacy VTE Monitoring - Patient Demographics Admission date: 06/25/18 Report Date: 06/25/18 Time: 07:42 Allergies/Adverse Reactions: Patient Allergies No Known Allergies Allergy (Verified 06/24/18 22:49) Height: 1.73 m Weight: 107.501 kg Patient Problems: Current Active Problems (Updated 06/25/18 @ 06:47 by Luis Angel Escobedo MD) Cholelithiasis (Acute) Anemia (Acute) Renal insufficiency (Acute) Pancreatitis (Acute) Obesity (Acute) Diabetes mellitus (Acute) Gallstone pancreatitis (Acute) - VTE Risk Labs: VTE Related Lab Results Hgb 10.7 g/dL (12.2-16.2) L 06/24/18 22:52 Hct 32.1 % (37.0-47.0) L 06/24/18 22:52 Plt Count 325 K/mm3 (142-424) 06/24/18 22:52 BUN 26 mg/dL (7-18) H 06/24/18 22:52 Creatinine 1.56 mg/dL (0.55-1.02) H 06/24/18 22:52 Estimated Creat Clear 56 mL/min (50-200) 06/24/18 22:52 Was VTE Risk Assessment Performed: Yes VTE Risk Level: Low Risk Clinical Trial Participant: No - Prophylaxis VTE Prophylaxis Ordered?: Yes Types of VTE Prophylaxis: TEDS Knee High Location of Applied Device: Not Applicable
[2018-06-25 08:01] LABS: Basophils % 0.4 % (0.1-2.0); Eosinophils % 0.3 % (0.1-12.0); Hematocrit 30.2 % (37.0-47.0); Hemoglobin 9.9 g/dL (12.2-16.2); Lymphocytes # 1.3 K/mm3 (0.7-4.5); Lymphocytes % 17.7 % (10-50); Mean Corpuscular HGB Conc 32.9 g/dL (31.8-35.4); Mean Corpuscular Hemoglobin 29.8 pg (27.0-31.2); Mean Corpuscular Volume 90.6 fl (81-99); Monocytes # 0.4 K/mm3 (0.1-1.0); Monocytes % 5.1 % (1.7-9.3); Neutrophils # 5.4 K/mm3 (1.8-7.8); Neutrophils % 76.5 % (37.0-80.0); Platelet Count 309 K/mm3 (142-424); Red Blood Count 3.33 M/mm3 (4.20-5.40); Red Cell Distribution Width 13.3 % (11.5-17.5); White Blood Count 7.1 K/mm3 (4.8-10.8)
[2018-06-25 08:16] LABS: Albumin Level 2.9 gm/dL (3.4-5.0); Albumin/Globulin Ratio 0.6 (1.1-1.8); Anion Gap 11.9 mEq/L (5-15); Bilirubin,Total 0.9 mg/dL (0.2-1.0); Calcium 9.2 mg/dL (8.5-10.1); Globulin 4.6 gm/dl (1.3-3.2); Potassium 3.9 mmoL/L (3.5-5.1); Total Protein,Serum 7.5 gm/dL (6.4-8.2)
--- NOTE | 2018-06-25 08:57 | History & Physical Report ---
*Admission Date: 06/25/18 *Chief complaint: abdominal pain, pancreatitis *History of present illness: Ms. Baca is a 72-year-old female with a known history of gallstones who presented to our clinic yesterday with increasing pain in the upper abdomen with some radiation to the back. Additionally the time she complained of some nausea. Symptoms began after eating a heavy meal with her son that was quite fatty. He was sent emergently yesterday from clinic to [facility] for right upper quadrant ultrasound and lab work. Labs were significant for mild elevation of liver enzymes and a normal (upper limit range) lipase. Her ultrasound revealed a somewhat dilated common bile duct at 12 mm with no definitive sign of choledocholithiasis. Cholelithiasis with no definitive evidence of cholecystitis was noted. She reported that she "felt much better" and the decision was made to proceed with close outpatient observation in terms of repeat laboratory evaluation today and surgical outpatient evaluation early next week. Although she did initially feel "much much better", last night she developed significant increase in pain in the right side with radiation to her back. Also accompanied by nausea and emesis while in the ambulance on the way to the hospital. Upon presentation to the emergency room she was noted to have reproducible pain on exam and drastic elevation of her lipase to almost 4000. She was admitted for further evaluation and management of pancreatitis with surgical consultation. On exam this morning, states nausea is much better. Still has some pain on exam. Otherwise afebrile, no jaundice, voiding independently. [facility] History I have reviewed the patient's past medical history: Yes Medical History: Reports:: Cancer (BREAST), Diabetes Mellitus Type 2, Hypertension Denies:: Diabetes Mellitus Type 1, MRSA *Have you ever received a pneumonia vaccine?: Yes *Have you received a flu vaccine this season?: No Other Medical History: Reports: Anemia, Arthritis, Cataracts, Radiation Therapy, Sinus Problems Laterality Cases: Left: Breast Biopsy, Lumpectomy Other Surgeries: Yes: Cholecystectomy, Hysterectomy-Total Amputation: No Fractures: No - *Social History Educational Level: Completed High School Smoking Status: Never smoker Alcohol Intake: never Substance Use Type: denies use *Occupational Status:: retired Housing: house *Travel in the last 8 weeks: None - Psychiatric History Expresses thoughts of harming self/others: None Suicide Plan Description: No Plan Family Hx:: Cancer Review of Systems - Review of Systems Review of systems:: pertinent systems reviewed and negative unless documented below - *Neurologic Denies seizure-like activity Meds Home Medications Medication Instructions Recorded Confirmed Type anastrozole 1 mg tablet 1 mg PO DAILY 08/10/17 06/25/18 History carvedilol 6.25 mg tablet 6.25 mg PO DAILY 08/10/17 06/25/18 History lisinopril 20 1 tab PO DAILY 08/10/17 06/25/18 History mg-hydrochlorothiazide 25 mg tablet Meloxicam 15 mg PO DAILY 06/25/18 06/25/18 History Pioglitazone HCl 30 mg PO DAILY 06/25/18 06/25/18 History Allergies Allergy/AdvReac Type Severity Reaction Status Date / Time No Known Allergies Allergy Verified 06/24/18 22:49 Exam Vital signs and Labs for Last 24 Hours: Temp Pulse Resp BP Pulse Ox 97.8 F 84 20 126/75 95 06/25/18 08:00 06/25/18 08:00 06/25/18 08:00 06/25/18 08:00 06/25/18 08:00 Laboratory Results - last 24 hr 06/24/18 22:52: WBC 5.8 D, RBC 3.62 L, Hgb 10.7 L, Hct 32.1 L, MCV 88.7, MCH 29.5, MCHC 33.3, RDW 13.3, Plt Count 325, MPV 6.8 L, Neut % (Auto) 71.9, Lymph % (Auto) 21.4, [place] % (Auto) 5.3, Eos % (Auto) 1.0, Baso % (Auto) 0.4, Neut # (Auto) 4.2, Lymph # (Auto) 1.2, [place] # (Auto) 0.3, Eos # (Auto) 0.1, Baso # (Auto) 0.0 06/24/18 22:52: Sodium 138, Potassium 3.6, Chloride 102, Carbon Dioxide 26, Anion Gap 13.6, BUN 26 H, Creatinine 1.56 H, Estimated Creat Clear 56, Estimated GFR 33 L, Est GFR ( Amer) 39 L, Glucose 133 H, Calcium 9.1, Total Bilirubin 1.3 H, AST 276 H, ALT 234 H, Alkaline Phosphatase 104, Total Protein 8.2, Albumin 3.2 L, Globulin 5.0 H, Albumin/Globulin Ratio 0.6 L 06/24/18 22:54: Amylase 316 H*, Lipase 3888 H 06/25/18 05:41: POC Glucose 113 H 06/25/18 07:50: WBC 7.1, RBC 3.33 L, Hgb 9.9 L, Hct 30.2 L, MCV 90.6, MCH 29.8, MCHC 32.9, RDW 13.3, Plt Count 309, MPV 7.0 L, Neut % (Auto) 76.5, Lymph % (Auto) 17.7, [place] % (Auto) 5.1, Eos % (Auto) 0.3, Baso % (Auto) 0.4, Neut # (Auto) 5.4, Lymph # (Auto) 1.3, [place] # (Auto) 0.4, Eos # (Auto) 0.0, Baso # (Auto) 0.0 06/25/18 07:50: Sodium 139, Potassium 3.9, Chloride 104, Carbon Dioxide 27, Anion Gap 11.9, BUN 28 H, Creatinine 1.56 H, Estimated Creat Clear 55, Estimated GFR 33 L, Est GFR ( Amer) 39 L, Glucose 109 H, Calcium 9.2, Total Bilirubin 0.9, AST 167 H D, ALT 186 H, Alkaline Phosphatase 94, Total Protein 7.5, Albumin 2.9 L, Globulin 4.6 H, Albumin/Globulin Ratio 0.6 L I & O for Last 24 hours: Intake & Output 06/22/18 06/23/18 06/24/18 06/25/18 23:59 23:59 23:59 23:59 Intake Total 243 / 243 Balance 243 / 243 Weight 107.955 kg 107.501 kg - *Routine HEENT Exam Head: Present: normocephalic, atraumatic Eye: Present: EOMI, PERRL ENT: Present: mucous membranes moist - *Routine Neck Exam Present: supple. Absent: lymphadenopathy - *Routine Respiratory Exam Present: CTA bilaterally. Absent: wheezes, crackles - *Routine Cardiovascular Exam Present: RRR, Normal S1, Normal S2 - *Routine Abdominal Exam Present: soft, normoactive bowel sounds, tenderness (Exquisitely tender right upper quadrant, and epigastric region, no left upper quadrant pain. No rebound or guarding) - *Routine Rectal Exam Patient deferred: visual exam - *Routine Exam Patient deferred: external exam - *Routine Extremities Exam Absent: cyanosis, clubbing, edema - *Routine Skin Exam Present: intact. Absent: cyanosis, erythema - *Routine Neurological Exam Present: alert, oriented X3 Assessment and Plan (1) Gallstone pancreatitis Current visit: Yes Status: Acute Category: Medical Code(s): K85.10 - Biliary acute pancreatitis without necrosis or infection (2) Hypertension Current visit: Yes Status: Acute Qualifiers: Hypertension type: essential hypertension Qualified Code(s): I10 - Essential (primary) hypertension Category: Medical Code(s): I10 - Essential (primary) hypertension To new home medication, goal less than 140/90. If persistently above 180/100 or symptomatic, will initiate as needed dosage including 0.1 mg clonidine every 6-8 hours as needed (3) Anemia Current visit: Yes Status: Acute Qualifiers: Anemia type: due to chronic kidney disease Chronic kidney disease stage: stage 3 (moderate) Qualified Code(s): N18.3 - Chronic kidney disease, stage 3 (moderate); D63.1 - Anemia in chronic kidney disease Category: Medical Code(s): D64.9 - Anemia, unspecified (4) Diabetes mellitus Current visit: Yes Status: Chronic Qualifiers: Diabetes mellitus type: type 2 Diabetes mellitus terminal system operator insulin use: without terminal system operator use Diabetes mellitus complication status: with unspecified complications Qualified Code(s): E11.8 - Type 2 diabetes mellitus with unspecified complications Category: Medical Code(s): E11.9 - Type 2 diabetes mellitus without complications Monitor before meals and at bedtime, sliding scale insulin as needed (5) Obesity Current visit: Yes Status: Chronic Qualifiers: Obesity type: due to excess calories Obesity classification: adult class 2 (BMI 35 - 39.9) Serious obesity comorbidity presence: with serious comorbidity Body mass index: BMI 36.0-36.9 Qualified Code(s): E66.01 - Morbid (severe) obesity due to excess calories; Z68.36 - Body mass index (BMI) 36.0-36.9, adult Category: Medical Code(s): E66.9 - Obesity, unspecified - Assessment and plan all Dx Assessment and Plan for all problems:: Patient presents with worsening of abdominal pain, found to have pancreatitis after diagnosis of cholelithiasis yesterday. Currently n.p.o., GI consult placed, appreciate recommendations. Advancement of diet and further management pending GI recommendations. Surgery has seen the patient with no plan for surgical intervention at this moment due to improvement in liver enzymes and symptoms most suspicious for pancreatitis not choledocholithiasis. Continues to require inpatient management with aggressive IVF rehydration
--- NOTE | 2018-06-25 13:49 | Procedure Note ---
[facility] Procedure Note Procedure Note:: ERCP procedure Report: Endoscopic retrograde cholangiopancreatography with biliary sphincterotomy and balloon extraction Endoscopist: Taras Sevilla II, MD Referring Physician: Mike Alonso M.D./Luis Angel Escobedo M.D. Date of Procedure: June 25, 2018 Equipment: Olympus 180 side viewing endoscope duodenoscope Sedation: MAC sedation Indication: Mrs. Baca is a 72-year-old female who was admitted with gallstone pancreatitis. The patient did have mildly elevated transaminases but normal alkaline phosphatase and total bilirubin. The patient's CAT scan did show evidence of probable stones or sludge within the biliary system which was mildly prominent. The gallbladder was distended with stones and sludge but there was no gallbladder wall thickening or pericholecystic fluid. The patient does state that she developed pain 2 days ago. She did have upper abdominal pain 1 year ago but this was her first bout of pancreatitis. Procedure: Prior to the procedure, a history and physical exam was performed, and patient's medications and allergies were reviewed. The risks, benefits and alternatives of the sedation and procedure were discussed with the patient. All questions were answered and informed consent was obtained. The patient was brought to the fluoroscopic radiology room. Patient identification and proposed procedure were verified by the physician and the nurse. The patient was placed in a swimmer's position between left lateral decubitus and prone position and the scope was passed under direct vision. Throughout the procedure, the patient's blood pressure, pulse, and oxygen saturations were monitored continuously. The ERCP was accomplished without difficulty. The patient tolerated the procedure well. Findings: The side-viewing endoscope was passed directly into the upper esophagus and advanced to the second portion of the duodenum. There was a 2-3 cm hiatal hernia. The stomach and duodenum were normal. The ampulla was well visualized. The common bile duct was selectively cannulated. The cholangiogram showed moderate to marked amount of filling defect that was more indicative of common bile duct stones along with sludge. The CBD diameter was approximately 8-9 mm. There was normal filling of the intrahepatic biliary system. There was only partial filling of the cystic duct. There were no strictures. A generous biliary sphincterotomy was performed. Next, a 9-12 mm balloon was swept through the biliary system. There was a marked amount of brown sludge and a couple of solid stones that were 8 mm. A second sweep yielded a moderate amount of additional sludge and stone. After the third sweep there was minimal sludge and debris. The pancreatic duct was not cannulated intentionally. Impression: 1. Marked CBD sludge with stones (brown pigmented) status post biliary sphincterotomy and balloon sweep decompression of biliary system Plan: The patient did have gallstone pancreatitis and now has biliary decompression with extraction of the biliary stones. She will need elective cholecystectomy. Based upon the volume of sludge and stone, I do feel that she may be at risk for recurrent choledocholithiasis.
--- NOTE | 2018-06-25 15:41 | Progress Note ---
[facility] Anesthesia Checklist - Patient Identification Patient Identification: Arm Band - Structural Data Admitted From: Inpatient Planned Operative Procedure/s: ercp Consent for Planned Operative Procedure(s) Verified: Yes Verified Documents: Surgical Consent, History and Physical - NPO Status Verified Time NPO: 00:00 - Additional verifications Anesthesia Reactions: No - Airway Assessment C-Spine Mobility Assessed: Yes (mp2) TMJ Mobility Assessed: Yes Dentition: Poor Dentition - Neurological Assessment Level of Consciousness: Awake, Alert - Anesthesia Plan Anesthesia Risk discussed: Yes Anesthesia Plan: Verified ASA Class: II Anesthesia Type: MAC [facility] History I have reviewed the patient's past medical history: Yes Medical History: Reports:: Cancer (BREAST), Diabetes Mellitus Type 2, Hypertension Denies:: Diabetes Mellitus Type 1, MRSA *Have you ever received a pneumonia vaccine?: Yes *Have you received a flu vaccine this season?: No Other Medical History: Reports: Anemia, Arthritis, Cataracts, Radiation Therapy, Sinus Problems Laterality Cases: Left: Breast Biopsy, Lumpectomy Other Surgeries: Yes: Cholecystectomy, Hysterectomy-Total Amputation: No Fractures: No - *Social History Educational Level: Completed High School Smoking Status: Never smoker Alcohol Intake: never Substance Use Type: denies use *Occupational Status:: retired Housing: house *Travel in the last 8 weeks: None - Psychiatric History Expresses thoughts of harming self/others: None Suicide Plan Description: No Plan Family Hx:: Cancer
[2018-06-26 06:45] LABS: Basophils % 0.2 % (0.1-2.0); Eosinophils # 0.1 K/mm3 (0.0-0.4); Eosinophils % 1.4 % (0.1-12.0); Hematocrit 29.3 % (37.0-47.0); Hemoglobin 9.5 g/dL (12.2-16.2); Mean Corpuscular HGB Conc 32.3 g/dL (31.8-35.4); Mean Corpuscular Hemoglobin 29.8 pg (27.0-31.2); Mean Corpuscular Volume 92.2 fl (81-99); Mean Platelet Volume 6.9 fl (7.4-10.4); Monocytes # 0.5 K/mm3 (0.1-1.0); Monocytes % 6.3 % (1.7-9.3); Neutrophils # 6.2 K/mm3 (1.8-7.8); Platelet Count 272 K/mm3 (142-424); Red Blood Count 3.18 M/mm3 (4.20-5.40); Red Cell Distribution Width 13.2 % (11.5-17.5); White Blood Count 7.8 K/mm3 (4.8-10.8)
[2018-06-26 06:59] LABS: Albumin Level 2.5 gm/dL (3.4-5.0); Albumin/Globulin Ratio 0.6 (1.1-1.8); Anion Gap 12.8 mEq/L (5-15); Bilirubin,Total 4.1 mg/dL (0.2-1.0); Calcium 8.7 mg/dL (8.5-10.1); Globulin 4.3 gm/dl (1.3-3.2); Potassium 3.8 mmoL/L (3.5-5.1); Total Protein,Serum 6.8 gm/dL (6.4-8.2)
--- NOTE | 2018-06-26 09:08 | Progress Note ---
Internal Medicine - PN: Subj *Date: 06/26/18 *Time: 09:07 Interval history: Events of yesterday and ERCP noted. Patient has been feeling better, continues to have a little bit of abdominal pain but ate coffee and yogurt this morning without problems. Exam Vital signs and Labs for Last 24 Hours: Temp Pulse Resp BP Pulse Ox 98.2 F 80 20 158/69 H 95 06/26/18 04:00 06/26/18 04:00 06/26/18 04:00 06/26/18 04:00 06/26/18 08:47 Laboratory Results - last 24 hr 06/25/18 11:28: POC Glucose 102 06/25/18 16:08: POC Glucose 126 H 06/25/18 20:17: POC Glucose 116 H 06/26/18 06:05: POC Glucose 94 06/26/18 06:26: WBC 7.8, RBC 3.18 L, Hgb 9.5 L, Hct 29.3 L, MCV 92.2, MCH 29.8, MCHC 32.3, RDW 13.2, Plt Count 272, MPV 6.9 L, Neut % (Auto) 79.0, Lymph % (Auto) 13.0, [place] % (Auto) 6.3, Eos % (Auto) 1.4, Baso % (Auto) 0.2, Neut # (Auto) 6.2, Lymph # (Auto) 1.0, [place] # (Auto) 0.5, Eos # (Auto) 0.1, Baso # (Auto) 0.0 06/26/18 06:26: Sodium 141, Potassium 3.8, Chloride 106, Carbon Dioxide 26, Anion Gap 12.8, BUN 26 H, Creatinine 1.44 H, Estimated Creat Clear 60, Estimated GFR 36 L, Est GFR ( Amer) 43 L, Glucose 89, Calcium 8.7, Total Bilirubin 4.1 H, AST 106 H D, ALT 145 H, Alkaline Phosphatase 135 H, Total Protein 6.8, Albumin 2.5 L D, Globulin 4.3 H, Albumin/Globulin Ratio 0.6 L, Amylase 56, Lipase 324 I & O for Last 24 hours: Intake & Output 06/23/18 06/24/18 06/25/18 06/26/18 11:59 11:59 11:59 11:59 Intake Total 243 / 243 223 / 223 Balance 243 / 243 2235 / 223 Weight 237 lb Narrative: No scleral icterus, no jaundice, lungs clear, heart rate regular. ENT exam clear. Abdomen soft, with minimal epigastric and right upper quadrant tenderness but no rebound or guarding, negative Godwin sign. Assessment and Plan (1) Gallstone pancreatitis Current visit: Yes Status: Acute Category: Medical Code(s): K85.10 - Biliary acute pancreatitis without necrosis or infection (2) Hypertension Current visit: Yes Status: Acute Qualifiers: Hypertension type: essential hypertension Qualified Code(s): I10 - Essential (primary) hypertension Category: Medical Code(s): I10 - Essential (primary) hypertension (3) Anemia Current visit: Yes Status: Acute Qualifiers: Anemia type: due to chronic kidney disease Chronic kidney disease stage: stage 3 (moderate) Qualified Code(s): N18.3 - Chronic kidney disease, stage 3 (moderate); D63.1 - Anemia in chronic kidney disease Category: Medical Code(s): D64.9 - Anemia, unspecified (4) Diabetes mellitus Current visit: Yes Status: Chronic Qualifiers: Diabetes mellitus type: type 2 Diabetes mellitus termination clerk insulin use: without [facility] use Diabetes mellitus complication status: with unspecified complications Qualified Code(s): E11.8 - Type 2 diabetes mellitus with unspecified complications Category: Medical Code(s): E11.9 - Type 2 diabetes mellitus without complications (5) Obesity Current visit: Yes Status: Chronic Qualifiers: Obesity type: due to excess calories Obesity classification: adult class 2 (BMI 35 - 39.9) Serious obesity comorbidity presence: with serious comorbidity Body mass index: BMI 36.0-36.9 Qualified Code(s): E66.01 - Morbid (severe) obesity due to excess calories; Z68.36 - Body mass index (BMI) 36.0-36.9, adult Category: Medical Code(s): E66.9 - Obesity, unspecified - Assessment and plan all Dx Assessment and Plan for all problems:: Overall patient is slightly improving. Continue dietary advancement. Check labs tomorrow, and if LFTs and bilirubin are improving consider discharge.
--- NOTE | 2018-06-26 09:22 | Progress Note ---
Subjective Narrative: Patient feels better with some minimal abdominal discomfort mid and right abdomen. Tolerating some limited diet. Exam Vital signs and Labs for Last 24 Hours: Temp Pulse Resp BP Pulse Ox 98.2 F 80 20 158/69 H 95 06/26/18 04:00 06/26/18 04:00 06/26/18 04:00 06/26/18 04:00 06/26/18 08:47 Laboratory Results - last 24 hr 06/25/18 11:28: POC Glucose 102 06/25/18 16:08: POC Glucose 126 H 06/25/18 20:17: POC Glucose 116 H 06/26/18 06:05: POC Glucose 94 06/26/18 06:26: WBC 7.8, RBC 3.18 L, Hgb 9.5 L, Hct 29.3 L, MCV 92.2, MCH 29.8, MCHC 32.3, RDW 13.2, Plt Count 272, MPV 6.9 L, Neut % (Auto) 79.0, Lymph % (Auto) 13.0, [place] % (Auto) 6.3, Eos % (Auto) 1.4, Baso % (Auto) 0.2, Neut # (Auto) 6.2, Lymph # (Auto) 1.0, [place] # (Auto) 0.5, Eos # (Auto) 0.1, Baso # (Auto) 0.0 06/26/18 06:26: Sodium 141, Potassium 3.8, Chloride 106, Carbon Dioxide 26, Anion Gap 12.8, BUN 26 H, Creatinine 1.44 H, Estimated Creat Clear 60, Estimated GFR 36 L, Est GFR ( Amer) 43 L, Glucose 89, Calcium 8.7, Total Bilirubin 4.1 H, AST 106 H D, ALT 145 H, Alkaline Phosphatase 135 H, Total Protein 6.8, Albumin 2.5 L D, Globulin 4.3 H, Albumin/Globulin Ratio 0.6 L, Amylase 56, Lipase 324 I & O for Last 24 hours: Intake & Output 06/23/18 06/24/18 06/25/18 06/26/18 11:59 11:59 11:59 11:59 Intake Total 243 / 243 2236 / 2236 Balance 243 / 243 2236 / 2236 Weight 237 lb - *Routine Abdominal Exam Present: soft Comments: Minimal tenderness without guarding. Progress Note: A&P (1) Gallstone pancreatitis Status: Acute Current Visit: Yes (2) Hypertension Status: Acute Current Visit: Yes (3) Anemia Status: Acute Current Visit: Yes (4) Diabetes mellitus Status: Chronic Current Visit: Yes (5) Obesity Status: Chronic Current Visit: Yes Assessment and Plan for All Diagnoses:: Continue with limited diet for now and monitor LFTs, pancreatic enzymes. If continues to improve possible discharge with close outpatient follow up with Dr. Escobedo Thursday or Thursday.
[2018-06-27 06:47] LABS: Basophils % 0.2 % (0.1-2.0); Eosinophils # 0.2 K/mm3 (0.0-0.4); Eosinophils % 2.4 % (0.1-12.0); Hemoglobin 9.1 g/dL (12.2-16.2); Lymphocytes # 1.3 K/mm3 (0.7-4.5); Mean Corpuscular HGB Conc 33.3 g/dL (31.8-35.4); Mean Corpuscular Hemoglobin 30.5 pg (27.0-31.2); Mean Corpuscular Volume 91.5 fl (81-99); Mean Platelet Volume 7.9 fl (7.4-10.4); Monocytes # 0.5 K/mm3 (0.1-1.0); Monocytes % 6.8 % (1.7-9.3); Neutrophils # 4.8 K/mm3 (1.8-7.8); Neutrophils % 71.6 % (37.0-80.0); Platelet Count 244 K/mm3 (142-424); Red Blood Count 2.99 M/mm3 (4.20-5.40); Red Cell Distribution Width 13.4 % (11.5-17.5); White Blood Count 6.7 K/mm3 (4.8-10.8)
[2018-06-27 06:48] LABS: Hematocrit 27.4 % (37.0-47.0)
[2018-06-27 07:01] LABS: Albumin Level 2.3 gm/dL (3.4-5.0); Albumin/Globulin Ratio 0.5 (1.1-1.8); Anion Gap 12.3 mEq/L (5-15); Calcium 8.4 mg/dL (8.5-10.1); Globulin 4.3 gm/dl (1.3-3.2); Potassium 3.3 mmoL/L (3.5-5.1); Total Protein,Serum 6.6 gm/dL (6.4-8.2)
--- NOTE | 2018-06-27 08:28 | Progress Note ---
Subjective Narrative: Patient states that overall she feels better. Still with some abdominal "soreness". Tolerating liquids without issue. Exam Vital signs and Labs for Last 24 Hours: Temp Pulse Resp BP Pulse Ox 98.7 F 89 20 159/79 H 93 L 06/27/18 04:00 06/27/18 04:00 06/27/18 04:00 06/27/18 04:00 06/27/18 07:50 Laboratory Results - last 24 hr 06/26/18 16:39: POC Glucose 99 06/26/18 20:16: POC Glucose 89 06/27/18 05:53: POC Glucose 90 06/27/18 06:39: WBC 6.7, RBC 2.99 L, Hgb 9.1 L, Hct 27.4 L, MCV 91.5, MCH 30.5, MCHC 33.3, RDW 13.4, Plt Count 244, MPV 7.9, Neut % (Auto) 71.6, Lymph % (Auto) 19.0, [place] % (Auto) 6.8, Eos % (Auto) 2.4, Baso % (Auto) 0.2, Neut # (Auto) 4.8, Lymph # (Auto) 1.3, [place] # (Auto) 0.5, Eos # (Auto) 0.2, Baso # (Auto) 0.0 06/27/18 06:39: Sodium 139, Potassium 3.3 L, Chloride 106, Carbon Dioxide 24, Anion Gap 12.3, BUN 18 D, Creatinine 1.31 H, Estimated Creat Clear 64, Estimated GFR 40 L, Est GFR ( Amer) 48 L, Glucose 89, Calcium 8.4 L, Total Bilirubin 3.0 H, AST 57 H D, ALT 95 H D, Alkaline Phosphatase 127 H, Total Protein 6.6, Albumin 2.3 L, Globulin 4.3 H, Albumin/Globulin Ratio 0.5 L, Amylase 38, Lipase 215 I & O for Last 24 hours: Intake & Output 06/24/18 06/25/18 06/26/18 06/27/18 11:59 11:59 11:59 11:59 Intake Total 243 / 243 2416 / 2416 4859 / 4859 Balance 243 / 243 2416 / 2416 4859 / 4859 Weight 237 lb 230 lb - *Routine Abdominal Exam Present: soft Comments: Tender in RUQ. Progress Note: A&P (1) Gallstone pancreatitis Status: Acute Current Visit: Yes (2) Hypertension Status: Acute Current Visit: Yes (3) Anemia Status: Acute Current Visit: Yes (4) Diabetes mellitus Status: Chronic Current Visit: Yes (5) Obesity Status: Chronic Current Visit: Yes Assessment and Plan for All Diagnoses:: Labs improving. Clinically improving. Tentatively plan close outpatient follow up with outpatient cholecystectomy
--- NOTE | 2018-06-27 08:40 | Progress Note ---
Internal Medicine - PN: Subj *Date: 06/27/18 *Time: 08:39 Interval history: Patient did fairly well overnight, tolerated full liquids well. However this morning feels somewhat tired Exam Vital signs and Labs for Last 24 Hours: Temp Pulse Resp BP Pulse Ox 98.7 F 89 20 159/79 H 93 L 06/27/18 04:00 06/27/18 04:00 06/27/18 04:00 06/27/18 04:00 06/27/18 07:50 Laboratory Results - last 24 hr 06/26/18 16:39: POC Glucose 99 06/26/18 20:16: POC Glucose 89 06/27/18 05:53: POC Glucose 90 06/27/18 06:39: WBC 6.7, RBC 2.99 L, Hgb 9.1 L, Hct 27.4 L, MCV 91.5, MCH 30.5, MCHC 33.3, RDW 13.4, Plt Count 244, MPV 7.9, Neut % (Auto) 71.6, Lymph % (Auto) 19.0, [place] % (Auto) 6.8, Eos % (Auto) 2.4, Baso % (Auto) 0.2, Neut # (Auto) 4.8, Lymph # (Auto) 1.3, [place] # (Auto) 0.5, Eos # (Auto) 0.2, Baso # (Auto) 0.0 06/27/18 06:39: Sodium 139, Potassium 3.3 L, Chloride 106, Carbon Dioxide 24, Anion Gap 12.3, BUN 18 D, Creatinine 1.31 H, Estimated Creat Clear 64, Estimated GFR 40 L, Est GFR ( Amer) 48 L, Glucose 89, Calcium 8.4 L, Total Bilirubin 3.0 H, AST 57 H D, ALT 95 H D, Alkaline Phosphatase 127 H, Total Protein 6.6, Albumin 2.3 L, Globulin 4.3 H, Albumin/Globulin Ratio 0.5 L, Amylase 38, Lipase 215 I & O for Last 24 hours: Intake & Output 06/24/18 06/25/18 06/26/18 06/27/18 11:59 11:59 11:59 11:59 Intake Total 243 / 243 2416 / 2416 7399 / 4859 Balance 243 / 243 2416 / 2416 485 / 485 Weight 237 lb 230 lb Narrative: No scleral icterus or jaundice, lungs clear, heart rate regular. Abdomen remains tender, especially in the right upper quadrant. Assessment and Plan (1) Gallstone pancreatitis Current visit: Yes Status: Acute Category: Medical Code(s): K85.10 - Biliary acute pancreatitis without necrosis or infection (2) Hypertension Current visit: Yes Status: Acute Qualifiers: Hypertension type: essential hypertension Qualified Code(s): I10 - Essential (primary) hypertension Category: Medical Code(s): I10 - Essential (primary) hypertension (3) Anemia Current visit: Yes Status: Acute Qualifiers: Anemia type: due to chronic kidney disease Chronic kidney disease stage: stage 3 (moderate) Qualified Code(s): N18.3 - Chronic kidney disease, stage 3 (moderate); D63.1 - Anemia in chronic kidney disease Category: Medical Code(s): D64.9 - Anemia, unspecified (4) Diabetes mellitus Current visit: Yes Status: Chronic Qualifiers: Diabetes mellitus type: type 2 Diabetes mellitus residential insulin use: without buttermaker use Diabetes mellitus complication status: with unspecified complications Qualified Code(s): E11.8 - Type 2 diabetes mellitus with unspecified complications Category: Medical Code(s): E11.9 - Type 2 diabetes mellitus without complications (5) Obesity Current visit: Yes Status: Chronic Qualifiers: Obesity type: due to excess calories Obesity classification: adult class 2 (BMI 35 - 39.9) Serious obesity comorbidity presence: with serious comorbidity Body mass index: BMI 36.0-36.9 Qualified Code(s): E66.01 - Morbid (severe) obesity due to excess calories; Z68.36 - Body mass index (BMI) 36.0-36.9, adult Category: Medical Code(s): E66.9 - Obesity, unspecified - Assessment and plan all Dx Assessment and Plan for all problems:: Patient is very minimally improved clinically, her labs however are improving. Plan will be to keep her today for low-fat diet. Follow labs tomorrow.
--- NOTE | 2018-06-28 07:28 | Progress Note ---
Subjective Patient reports: feels better Narrative: Patient feels a bit better. Still complains of right sided abdomen being "sore". Tolerating diet. Exam Vital signs and Labs for Last 24 Hours: Temp Pulse Resp BP Pulse Ox 100.1 F H 82 18 153/82 H 93 L 06/28/18 04:00 06/28/18 04:00 06/28/18 04:00 06/28/18 04:00 06/28/18 04:00 Laboratory Results - last 24 hr 06/27/18 11:00: POC Glucose 113 H 06/27/18 16:35: POC Glucose 95 06/27/18 21:28: POC Glucose 105 06/28/18 05:41: POC Glucose 83 I & O for Last 24 hours: Intake & Output 06/25/18 06/26/18 06/27/18 06/28/18 11:59 11:59 11:59 11:59 Intake Total 243 / 243 2416 / 2416 5339 / 5339 3962 / 3962 Balance 243 / 243 2416 / 2416 5339 / 5339 3962 / 3962 Weight 237 lb 230 lb 238 lb - Constitutional no acute distress - *Routine Abdominal Exam Present: soft Comments: Tender in RUQ and minor tenderness in RLQ Progress Note: A&P (1) Gallstone pancreatitis Status: Acute Current Visit: Yes (2) Hypertension Status: Acute Current Visit: Yes (3) Anemia Status: Acute Current Visit: Yes (4) Diabetes mellitus Status: Chronic Current Visit: Yes (5) Obesity Status: Chronic Current Visit: Yes Assessment and Plan for All Diagnoses:: Labs pending this morning. Possible discharge today with close outpatient follow up with Dr. Escobedo tomorrow or Thursday.
[2018-06-28 07:31] LABS: Basophils % 0.3 % (0.1-2.0); Eosinophils # 0.1 K/mm3 (0.0-0.4); Eosinophils % 1.1 % (0.1-12.0); Hematocrit 26.5 % (37.0-47.0); Hemoglobin 8.8 g/dL (12.2-16.2); Lymphocytes # 1.3 K/mm3 (0.7-4.5); Lymphocytes % 14.6 % (10-50); Mean Corpuscular HGB Conc 33.2 g/dL (31.8-35.4); Mean Corpuscular Hemoglobin 30.5 pg (27.0-31.2); Mean Corpuscular Volume 91.8 fl (81-99); Mean Platelet Volume 7.1 fl (7.4-10.4); Monocytes # 0.5 K/mm3 (0.1-1.0); Neutrophils # 6.8 K/mm3 (1.8-7.8); Platelet Count 261 K/mm3 (142-424); Red Blood Count 2.89 M/mm3 (4.20-5.40); Red Cell Distribution Width 13.6 % (11.5-17.5); White Blood Count 8.7 K/mm3 (4.8-10.8)
[2018-06-28 07:41] LABS: Albumin Level 2.2 gm/dL (3.4-5.0); Albumin/Globulin Ratio 0.5 (1.1-1.8); Anion Gap 12.1 mEq/L (5-15); Bilirubin,Total 1.8 mg/dL (0.2-1.0); Calcium 8.5 mg/dL (8.5-10.1); Globulin 4.3 gm/dl (1.3-3.2); Potassium 3.1 mmoL/L (3.5-5.1); Total Protein,Serum 6.5 gm/dL (6.4-8.2)
--- NOTE | 2018-06-28 08:12 | Discharge Summary ---
General - General Admission date:: 06/25/18 Discharge date: 06/28/18 HPI HPI: Ms. Baca is a 72-year-old female with a known history of gallstones who presented to our clinic yesterday with increasing pain in the upper abdomen with some radiation to the back. Additionally the time she complained of some nausea. Symptoms began after eating a heavy meal with her son that was quite fatty. He was sent emergently yesterday from clinic to [facility] for right upper quadrant ultrasound and lab work. Labs were significant for mild elevation of liver enzymes and a normal (upper limit range) lipase. Her ultrasound revealed a somewhat dilated common bile duct at 12 mm with no definitive sign of choledocholithiasis. Cholelithiasis with no definitive evidence of cholecystitis was noted. She reported that she "felt much better" and the decision was made to proceed with close outpatient observation in terms of repeat laboratory evaluation today and surgical outpatient evaluation early next week. Although she did initially feel "much much better", last night she developed significant increase in pain in the right side with radiation to her back. Also accompanied by nausea and emesis while in the ambulance on the way to the hospital. Upon presentation to the emergency room she was noted to have reproducible pain on exam and drastic elevation of her lipase to almost 4000. She was admitted for further evaluation and m anagement of pancreatitis with surgical consultation. On exam this morning, states nausea is much better. Still has some pain on exam. Otherwise afebrile, no jaundice, voiding independently. Hospital Course Hospital Course: Patient was admitted, and diagnosed with gallstone pancreatitis with choledocholithiasis. GI consultation was obtained and ERCP was performed with good removal of stone and lots of debris with some relief of patient's pain. Patient's bilirubin however elevated the next day and she was watched over the weekend which resulted in improving bilirubin and transaminase levels. She was able to be transition to a low-fat diet and tolerated this well. Hemoglobin declined expectedly given blood draws and hydration. This morning patient was doing well, was able to take low-fat diet without problems and wanted to be sent home. We will send her home-she does have a low-grade fever this morning, but given her normal white count I do not believe this represents a significant issue but I will send her home on Augmentin to cover GI pathogens and also have blood cultures obtained before discharge. She has appointment scheduled with surgery in the next 24 hours for evaluation for outpatient cholecystectomy. Objective Vital signs: Temp Pulse Resp BP Pulse Ox 100.1 F H 82 18 153/82 H 93 L 06/28/18 04:00 06/28/18 04:00 06/28/18 04:00 06/28/18 04:00 06/28/18 04:00 Narrative: Patient is pleasant, alert, appears well-hydrated, alert, oriented x3. Oropharynx clear, no JVD. Anterior lung garcia are clear, abdomen soft, some tenderness in the epigastric areas but improved over baseline. No CVA tenderness, no edema. Results Labs on day of discharge: Labs from last 24 hours 06/28/18 06/28/18 06/28/18 06:46 06:46 05:41 WBC 8.7 D RBC 2.89 L Hgb 8.8 L Hct 26.5 L MCV 91.8 MCH 30.5 MCHC 33.2 RDW 13.6 Plt Count 261 MPV 7.1 L Neut % (Auto) 78.0 Lymph % (Auto) 14.6 [place] % (Auto) 6.0 Eos % (Auto) 1.1 Baso % (Auto) 0.3 Neut # (Auto) 6.8 Lymph # (Auto) 1.3 [place] # (Auto) 0.5 Eos # (Auto) 0.1 Baso # (Auto) 0.0 Sodium 139 Potassium 3.1 L Chloride 104 Carbon Dioxide 26 Anion Gap 12.1 BUN 13 D Creatinine 1.08 H Estimated Creat Clear 80 Estimated GFR 50 L Est GFR ( Amer) 60 D Glucose 88 POC Glucose 83 Calcium 8.5 Total Bilirubin 1.8 H AST 31 D ALT 66 D Alkaline Phosphatase 110 Total Protein 6.5 Albumin 2.2 L Globulin 4.3 H Albumin/Globulin Ratio 0.5 L Amylase 26 Lipase 171 06/27/18 06/27/18 06/27/18 21:28 16:35 11:00 WBC RBC Hgb Hct MCV MCH MCHC RDW Plt Count MPV Neut % (Auto) Lymph % (Auto) [place] % (Auto) Eos % (Auto) Baso % (Auto) Neut # (Auto) Lymph # (Auto) [place] # (Auto) Eos # (Auto) Baso # (Auto) Sodium Potassium Chloride Carbon Dioxide Anion Gap BUN Creatinine Estimated Creat Clear Estimated GFR Est GFR ( Amer) Glucose POC Glucose 105 95 113 H Calcium Total Bilirubin AST ALT Alkaline Phosphatase Total Protein Albumin Globulin Albumin/Globulin Ratio Amylase Lipase DS: Diagnosis - Discharge Diagnosis (1) Gallstone pancreatitis Status: Acute (2) Hypertension Status: Chronic (3) Anemia Status: Chronic (4) Diabetes mellitus Status: Chronic (5) Obesity Status: Chronic Discharge Plan - Patient Discharge Instructions ACTIVITY: Continue current activity DIET: low fat, low cholesterol Patient Instructions: DI for Pancreatitis, DI for Colitis - Follow up Plan Follow up with: Luis Angel Escobedo MD [Staff Physician] - (06/29 or 06/30) Disposition: Home, Self-Long Term Medications: Home Medications Medication Instructions Recorded Confirmed Type anastrozole 1 mg tablet 1 mg PO DAILY 08/10/17 06/25/18 History carvedilol 6.25 mg tablet 6.25 mg PO DAILY 08/10/17 06/25/18 History lisinopril 20 1 tab PO DAILY 08/10/17 06/25/18 History mg-hydrochlorothiazide 25 mg tablet Meloxicam 15 mg PO DAILY 06/25/18 06/25/18 History Pioglitazone HCl 30 mg PO DAILY 06/25/18 06/25/18 History Amoxicillin/Potassium Clav 1 tab PO Q12H #14 tab 06/28/18 Rx [Augmentin 875-125 Tablet] Hydrocod/Acet 5/325 mg [[place] 1 tab PO Q4HP PRN #12 tab 06/28/18 Rx 5/325mg tablet] Prescriptions/Medication Reconciliation: New Hydrocod/Acet 5/325 mg [[place] 5/325mg tablet] 1 tab PO Q4HP PRN #12 tab PRN Reason: Moderate Pain Amoxicillin/Potassium Clav [Augmentin 875-125 Tablet] 1 tab PO Q12H #14 tab Continued lisinopril 20 mg-hydrochlorothiazide 25 mg tablet 1 tab PO DAILY carvedilol 6.25 mg tablet 6.25 mg PO DAILY Discontinued anastrozole 1 mg tablet 1 mg PO DAILY Pioglitazone HCl 30 mg PO DAILY Meloxicam 15 mg PO DAILY
== END 2018-06-28 10:15 | disposition home or self-care (01) | DRG 444 ==
LOC: 2ND 22:40 → ER 22:40 → 2ND 06-25 02:57
PROVIDERS: ADMIT Family Medicine; ATTEND Internal Medicine Adolescent Medicine
CPT/HCPCS: 36415; 74176; 74330; 76705; 80053; 82150; 82962; 83690; 85025; 87040; 96374; 96375; 96376; 99284; J2405; Q9967

== ENCOUNTER → 2018-06-29 11:34 | Outpatient (CLI) | payer MEDICARE, SELFPAY ==
[2018-06-29 13:19] LABS: Basophils % 0.4 % (0.1-2.0); Eosinophils # 0.2 K/mm3 (0.0-0.4); Eosinophils % 2.9 % (0.1-12.0); Hematocrit 28.8 % (37.0-47.0); Hemoglobin 9.5 g/dL (12.2-16.2); Lymphocytes # 1.4 K/mm3 (0.7-4.5); Lymphocytes % 18.3 % (10-50); Mean Corpuscular HGB Conc 33.1 g/dL (31.8-35.4); Mean Corpuscular Volume 90.6 fl (81-99); Mean Platelet Volume 8.1 fl (7.4-10.4); Monocytes # 0.5 K/mm3 (0.1-1.0); Monocytes % 7.2 % (1.7-9.3); Neutrophils # 5.3 K/mm3 (1.8-7.8); Neutrophils % 71.1 % (37.0-80.0); Platelet Count 291 K/mm3 (142-424); Red Blood Count 3.18 M/mm3 (4.20-5.40); White Blood Count 7.5 K/mm3 (4.8-10.8)
[2018-06-29 17:04] LABS: Alanine Aminotransferase 59 U/L (12-78); Albumin Level 2.4 gm/dL (3.4-5.0); Albumin/Globulin Ratio 0.6 (1.1-1.8); Alkaline Phosphatase 104 U/L (46-116); Amylase 28 U/L (25-115); Anion Gap 14.9 mEq/L (5-15); Aspartate Amino Transferase 31 U/L (15-37); Bilirubin,Total 0.9 mg/dL (0.2-1.0); Blood Urea Nitrogen 15 mg/dL (7-18); Calcium 8.4 mg/dL (8.5-10.1); Carbon Dioxide 23 mmol/L (21.0-32.0); Chloride 108 mmol/L (98-107); Creatinine,Serum 1.14 mg/dL (0.55-1.02); Estimated Glomerular Filt Rate 47 ml/min (>60); GFR (African American) 57 ML/MIN (>60); Globulin 3.9 gm/dl (1.3-3.2); Glucose 111 mg/dL (74-106); Lipase 227 u/L (73-393); Potassium 3.9 mmoL/L (3.5-5.1); Sodium 142 mmol/L (136-145); Total Protein,Serum 6.3 gm/dL (6.4-8.2)
== END ==
PROVIDERS: Visit Provider Surgery
DX: K85.90 Acute pancreatitis without necrosis or infection, unspecified (principal); K81.1 Chronic cholecystitis; K85.10 Biliary acute pancreatitis without necrosis or infection
CPT/HCPCS: 36415; 80053; 82150; 83690; 85025; 93005

== ENCOUNTER 2018-07-02 10:33 | Observation (INO) ==
--- NOTE | 2018-07-02 12:37 | Progress Note ---
[facility] Anesthesia Checklist - Patient Identification Patient Identification: Arm Band, Verbal (Name & ) - Structural Data Admitted From: Home Planned Operative Procedure/s: Laparoscopic cholecystectomy Consent for Planned Operative Procedure(s) Verified: Yes Verified Documents: Surgical Consent, History and Physical - NPO Status Verified Time NPO: 00:00 - Chart Verification Results Verified: CBC, BMP - Additional verifications Anesthesia Reactions: No - Airway Assessment C-Spine Mobility Assessed: Yes TMJ Mobility Assessed: Yes Dentition: Poor Dentition (Missing, chipped teeth) - Neurological Assessment Level of Consciousness: Awake Hx Seizures: No Numbness or tingling in extremities: No - Anesthesia Plan Anesthesia Risk discussed: Yes Anesthesia Plan: Verified ASA Class: III Anesthesia Type: General [facility] History I have reviewed the patient's past medical history: Yes Medical History: Reports:: Cancer (left breast), Diabetes Mellitus Type 2, Hypertension, Renal Insufficiency Denies:: Diabetes Mellitus Type 1, Internal Pacemaker, MRSA, Seizures *Have you ever received a pneumonia vaccine?: No *Have you received a flu vaccine this season?: No Other Medical History: Reports: Anemia, Arthritis, Cataracts, Radiation Therapy, Sinus Problems, Other (Obesity). Denies: Blood Transfusion Reaction Laterality Cases: Left: Breast Biopsy, Lumpectomy Other Surgeries: Yes: Cholecystectomy, Hysterectomy-Total. No: Pacemaker Amputation: No Fractures: No - *Social History Smoking Status: Never smoker Alcohol Intake: never Substance Use Type: denies use *Occupational Status:: retired Housing: house *Travel in the last 8 weeks: None - Psychiatric History Expresses thoughts of harming self/others: None Suicide Plan Description: No Plan Family Hx:: Cancer
--- NOTE | 2018-07-02 15:55 | Progress Note ---
[facility] Anesthesia Record Part I Intake, IV Amount: 900 Estimated blood loss (mL): 100 Urine output (mL): 0 (NM) Blood Products used (#): none Blood Pressure: 146/82 SaO2: 96 Pulse Rate: 76 Respiratory Rate: 14 Temperature: 98.0 F Patient is:: Awake, Drowsy, Stable Stable to PACU at:: 15:50
--- NOTE | 2018-07-02 15:56 | Progress Note ---
[facility] Anesthesia Record Part II Discharge Time: 16:20 Destination: Medical Surgical Department PACU nurse assessment reviewed?: Yes Patient Condition:: Good Anesthesia Complications:: None Swallowing reflex intact?: Yes Cyanosis?: No
--- NOTE | 2018-07-02 16:18 | Operative Note ---
Date of procedure: 07/02/18 Pre-op Diagnosis:: Biliary pancreatitis Post-op Diagnosis:: History of recent biliary pancreatitis Severe acute gangrenous/ulcerative cholecystitis Procedure performed:: Laparoscopic cholecystectomy Surgeon:: Luis Angel Escobedo MD CELLOPHANER:: Sami Rodriguez Anesthesia: GETA Estimated blood loss (mL): 100 Operative findings:: Severe acute gangrenous/ulcerative cholecystitis with severe wall thickening and dense adhesions between gallbladder and omentum. The gallbladder and hepatic parenchyma are essentially fused. Severe thickening of tissue around infundibulum with acute inflammatory response. Multiple large stones within gallbladder Operative note:: After informed consent was obtained to the patient was taken to the operating room and placed in the supine position. General anesthesia was induced and her abdomen was prepped and draped in a sterile fashion. After infiltration local anesthetic a supraumbilical incision was made. A Veress needle was placed in position. The abdomen was insufflated. A 5 mm trocar was placed in position. Under direct visualization 2 additional 5 mm trocars were placed in the right upper quadrant and an 11 mm trocar was placed in the subxiphoid position. Evaluation revealed the gallbladder to be severely inflamed with acute inflammatory response between the gallbladder and omentum. Dissection of the omentum away from the gallbladder was very difficult. A combination of blunt dissection and harmonic litzy was utilized to free the gallbladder from the omentum. The gallbladder was severely distended and acutely inflamed. Patchy ulcerations and changes consistent with gangrenous cholecystitis were also noted. The gallbladder was carefully elevated. The tissue around the infundibulum was severely thickened and enlarged. Severe inflammatory changes noted. Dissection was exceedingly difficult. The decision was made to proceed with a "dome down approach". Careful dissection was taken with the harmonic litzy in order to remove the gallbladder from the liver margin. The gallbladder and liver parenchyma were essentially fused. Electrocautery was utilized to achieve hemostasis along the gallbladder fossa. Endoloops (x2) were then utilized to control the infundibulum and the gallbladder was transected above this site utilizing harmonic litzy. Multiple large stones were noted. The gallbladder and stones were placed in a retrieval bag and removed through the subxiphoid trocar site. This site was expanded along the left lateral margin in the right lateral margin in order to allow retrieval. The right upper quadrant was thoroughly irrigated. No active bleeding or bile leak was noted. #10 Castro-Chao drains (x2) were then placed in the gallbladder fossa and exited through the 5 mm right upper quadrant trocar sites. The drains were secured with interrupted nylon suture and placed to bulb suction. The fascia at the subxiphoid trocar site was reapproximated with 0 Ethibond. Wounds were irrigated as the remaining trocar was removed. Wounds were irrigated and skin was closed with 4-0 Monocryl in a subcuticular fashion. Dressings were applied and the patient was transferred to recovery in stable condition. Note: The gallbladder was opened on the back table and severe ulcerations were noted within. Gangrenous changes were also noted. Condition: stable Disposition: PACU Specimens:: Gallbladder and contents Complications:: No immediate
--- NOTE | 2018-07-03 09:14 | Progress Note ---
Subjective Patient reports: no new complaints Exam Vital signs and Labs for Last 24 Hours: Temp Pulse Resp BP Pulse Ox 97.5 F L 69 18 126/89 95 07/03/18 08:00 07/03/18 08:00 07/03/18 08:00 07/03/18 08:00 07/03/18 08:00 Laboratory Results - last 24 hr 07/02/18 11:29: POC Glucose 118 H I & O for Last 24 hours: Intake & Output 06/30/18 07/01/18 07/02/18 07/03/18 11:59 11:59 11:59 11:59 Intake Total 3220 / 3220 Output Total 1765 / 1765 Balance 1455 / 1455 Weight 238 lb 247 lb 4 oz - Constitutional no acute distress - *Routine Respiratory Exam Absent: respiratory distress - *Routine Abdominal Exam Present: soft Comments: LAZ drains with serosanguineous output Progress Note: A&P (1) Gangrenous cholecystitis Status: Acute Assessment and plan: Overall, doing fairly well status post laparoscopic cholecystectomy. Cholangiogram not able to be performed secondary to severe inflammation and gangrenous changes in around infundibulum Follow-up morning labs Advance diet Increase ambulation Possible discharge home later today Current Visit: Yes (2) Gallstone pancreatitis Status: Acute Current Visit: No
[2018-07-03 09:25] LABS: Basophils % 0.2 % (0.1-2.0); Eosinophils % 0.1 % (0.1-12.0); Hematocrit 28.5 % (37.0-47.0); Hemoglobin 9.3 g/dL (12.2-16.2); Lymphocytes # 1.2 K/mm3 (0.7-4.5); Lymphocytes % 14.4 % (10-50); Mean Corpuscular HGB Conc 32.5 g/dL (31.8-35.4); Mean Corpuscular Hemoglobin 29.7 pg (27.0-31.2); Mean Corpuscular Volume 91.5 fl (81-99); Mean Platelet Volume 7.1 fl (7.4-10.4); Monocytes # 0.4 K/mm3 (0.1-1.0); Monocytes % 4.3 % (1.7-9.3); Neutrophils # 6.9 K/mm3 (1.8-7.8); Neutrophils % 81.1 % (37.0-80.0); Platelet Count 398 K/mm3 (142-424); Red Blood Count 3.11 M/mm3 (4.20-5.40); Red Cell Distribution Width 13.6 % (11.5-17.5); White Blood Count 8.5 K/mm3 (4.8-10.8)
[2018-07-03 09:43] LABS: Albumin Level 2.3 gm/dL (3.4-5.0); Albumin/Globulin Ratio 0.5 (1.1-1.8); Anion Gap 13.6 mEq/L (5-15); Bilirubin,Total 0.5 mg/dL (0.2-1.0); Calcium 8.4 mg/dL (8.5-10.1); Globulin 4.5 gm/dl (1.3-3.2); Potassium 3.6 mmoL/L (3.5-5.1); Total Protein,Serum 6.8 gm/dL (6.4-8.2)
--- NOTE | 2018-07-03 10:00 | Discharge Summary ---
General - General Admission date:: 07/02/18 Discharge date: 07/03/18 HPI HPI: This is a 72-year-old female who was recently hospitalized for gallstone pancreatitis. Her pancreatitis resolved and she was scheduled for cholecystectomy. She wished to be discharged home prior to cholecystectomy with close follow-up/surgical intervention. She underwent laparoscopic cholecystectomy with findings consistent with ulcerative/gangrenous cholecystitis. Please see operative report for detail. She was placed on observation secondary to these findings. Hospital Course Hospital Course: She convalesced well. She remained afebrile with stable and normal vital signs. Follow-up laboratory evaluation revealed no no significant elevation of any of her liver functions. Her amylase/lipase remain normal. She was deemed appropriate for discharge home with close outpatient follow-up on the morning of postoperative day 1. Objective Vital signs: Temp Pulse Resp BP Pulse Ox 97.5 F L 69 18 126/89 95 07/03/18 08:00 07/03/18 08:00 07/03/18 08:00 07/03/18 08:00 07/03/18 08:00 no acute distress - *Routine HEENT Exam Head: Present: normocephalic, atraumatic - *Routine Neck Exam Present: full ROM - Routine Chest/Breast/Axilla Exam Chest wall: Absent: tenderness - *Routine Respiratory Exam Absent: respiratory distress - *Routine Cardiovascular Exam Present: RRR - *Routine Abdominal Exam Present: soft - *Routine Extremities Exam Present: full ROM - Routine Back/Spine/Pelvis Exam Back/Spine: Present: full ROM - *Routine Skin Exam Present: intact - *Routine Neurological Exam Present: alert, oriented X3 - Routine Psychiatric Exam Present: normal affect Results Labs on day of discharge: Labs from last 24 hours 07/03/18 07/03/18 07/03/18 09:15 09:15 09:15 WBC 8.5 RBC 3.11 L Hgb 9.3 L Hct 28.5 L MCV 91.5 MCH 29.7 MCHC 32.5 RDW 13.6 Plt Count 398 D MPV 7.1 L Neut % (Auto) 81.1 H Lymph % (Auto) 14.4 [place] % (Auto) 4.3 Eos % (Auto) 0.1 Baso % (Auto) 0.2 Neut # (Auto) 6.9 Lymph # (Auto) 1.2 [place] # (Auto) 0.4 Eos # (Auto) 0.0 Baso # (Auto) 0.0 Sodium 142 Potassium 3.6 Chloride 104 Carbon Dioxide 28 Anion Gap 13.6 BUN 15 Creatinine 1.50 H Estimated Creat Clear 60 Estimated GFR 34 L Est GFR ( Amer) 41 L Glucose 136 H POC Glucose Calcium 8.4 L Total Bilirubin 0.5 AST 52 H ALT 42 Alkaline Phosphatase 74 Total Protein 6.8 Albumin 2.3 L Globulin 4.5 H Albumin/Globulin Ratio 0.5 L Amylase 23 L Lipase 125 07/02/18 11:29 WBC RBC Hgb Hct MCV MCH MCHC RDW Plt Count MPV Neut % (Auto) Lymph % (Auto) [place] % (Auto) Eos % (Auto) Baso % (Auto) Neut # (Auto) Lymph # (Auto) [place] # (Auto) Eos # (Auto) Baso # (Auto) Sodium Potassium Chloride Carbon Dioxide Anion Gap BUN Creatinine Estimated Creat Clear Estimated GFR Est GFR ( Amer) Glucose POC Glucose 118 H Calcium Total Bilirubin AST ALT Alkaline Phosphatase Total Protein Albumin Globulin Albumin/Globulin Ratio Amylase Lipase DS: Diagnosis - Discharge Diagnosis (1) Gangrenous cholecystitis Status: Acute (2) Gallstone pancreatitis Status: Acute Discharge Plan - Patient Discharge Instructions Additional Instructions: LAZ drain teaching Patient Instructions: Surgical Site Infection - Follow up Plan Follow up with: Luis Angel Escobedo MD [Staff Physician] - (07/06 or 07/07) Disposition: Home, Self-Fdc Medications: Home Medications Medication Instructions Recorded Confirmed Type carvedilol 6.25 mg tablet 6.25 mg PO DAILY 08/10/17 07/02/18 History lisinopril 20 1 tab PO DAILY 08/10/17 07/02/18 History mg-hydrochlorothiazide 25 mg tablet Hydrocod/Acet 5/325 mg [[place] 1 tab PO Q4HP PRN #12 tab 06/28/18 07/02/18 Rx 5/325mg tablet] Amoxicillin/Potassium Clav 1 tab PO Q12H 07/01/18 07/02/18 History [Augmentin 875-125 Tablet] Prescriptions/Medication Reconciliation: Continued lisinopril 20 mg-hydrochlorothiazide 25 mg tablet 1 tab PO DAILY carvedilol 6.25 mg tablet 6.25 mg PO DAILY Hydrocod/Acet 5/325 mg [[place] 5/325mg tablet] 1 tab PO Q4HP PRN #12 tab PRN Reason: Moderate Pain Amoxicillin/Potassium Clav [Augmentin 875-125 Tablet] 1 tab PO Q12H
== END 2018-07-03 13:50 | disposition home or self-care (01) ==
LOC: 2ND 10:33 → OR 10:33
PROVIDERS: ADMIT Surgery; ATTEND Surgery
DX: K81.0 Acute cholecystitis; K82.A1 Gangrene of gallbladder in cholecystitis; E11.9 Type 2 diabetes mellitus without complications
CPT/HCPCS: 80053; 82150; 82962; 83690; 85025; 88304; 94761; G0378; J0131; J2405; J2543; J2710

== ENCOUNTER → 2018-08-19 10:16 | Outpatient (CLI) | payer MEDICARE, SELFPAY ==
--- NOTE | 2018-08-19 10:17 | MM_ITS ---
MM Dig screening mamm BI w/CAD ORDERING PHYSICIAN : Dania Camarena APRN PATIENT AGE: 72 years GENDER: Female COMPARISON: August 2017, , August 2016 bilateral mammogram October 2016 right mammogram INDICATION: Routine screening mammogram. HISTORY of left breast cancer with lumpectomy, radiation. . No new areas of concern clinically Family history.: Sister with breast cancer TECHNIQUE: Standard CC and MLO images were obtained. R2 CAD reviewed. FINDINGS: Asymmetry, lumpectomy and radiation left breast. Mild/moderate residual breast density . No new dominant or suspicious mass RIGHT BREAST: Percutaneous biopsy with metallic MicroMark or clip at the retroareolar region/superior central right breast. This resides just along the posterior margin of a small stellate area which is remain stable on cc view and has shown no appreciable progression on MLO view. There are scattered small areas of calcification right breast. These clusters have shown no significant change but do warrant close ongoing follow-up. The deeper cluster of calcifications laterally is stable since 2016, 2007 studies. A smaller clustered calcifications more anteriorly at lateral breast is also remained stable since 2018. Can be followed. LEFT BREAST: No significant change at the left breast. Scarring from previous lumpectomy and radiation. Persistent mild diffuse skin thickening. --------IMPRESSION: 1.. Left breast. No new findings. Stable lumpectomy and radiation changes 2. Right breast::-No New findings. ... Small overall stable appearing focal area of density, superior retroareolar region--previous percutaneous percutaneous biopsy clip at the posterior aspect of this region noted ... Stable small clusters of calcifications again noted lateral breast. Can be followed 3. Bilateral follow-up one Year. Annual follow-up Should be encouraged and emphasized in this high-risk patient BI-RADS Category: 2 stable Benign appearing Finding(s) RECOMMENDED FOLLOW-UP: 1YR 1 YEAR FOLLOW-UP (A letter has been sent to the patient regarding results of the study.)
== END ==
PROVIDERS: PCP Internal Medicine Adolescent Medicine; Visit Provider Nurse Practitioner
DX: Z12.31 Encounter for screening mammogram for malignant neoplasm of breast (principal)
CPT/HCPCS: 77067

== ENCOUNTER → 2019-01-12 09:35 | Outpatient (CLI) | payer MEDICARE, SELFPAY ==
[2019-01-12 13:42] LABS: Basophils % 0.5 % (0.1-2.0); Eosinophils # 0.2 K/mm3 (0.0-0.4); Eosinophils % 3.4 % (0.1-12.0); Hemoglobin 11.2 g/dL (12.2-16.2); Lymphocytes # 1.4 K/mm3 (0.7-4.5); Lymphocytes % 30.2 % (10-50); Mean Corpuscular HGB Conc 31.9 g/dL (31.8-35.4); Mean Corpuscular Hemoglobin 29.8 pg (27.0-31.2); Mean Corpuscular Volume 93.4 fl (81-99); Mean Platelet Volume 8.7 fl (7.4-10.4); Monocytes # 0.2 K/mm3 (0.1-1.0); Monocytes % 4.4 % (1.7-9.3); Neutrophils # 2.9 K/mm3 (1.8-7.8); Neutrophils % 61.5 % (37.0-80.0); Platelet Count 299 K/mm3 (142-424); Red Blood Count 3.74 M/mm3 (4.20-5.40); Red Cell Distribution Width 13.7 % (11.5-17.5); White Blood Count 4.6 K/mm3 (4.8-10.8)
[2019-01-12 14:01] LABS: Alanine Aminotransferase 15 U/L (12-78); Albumin/Globulin Ratio 0.8 (1.1-1.8); Alkaline Phosphatase 60 U/L (46-116); Anion Gap 14.2 mEq/L (5-15); Aspartate Amino Transferase 11 U/L (15-37); Bilirubin,Total 0.4 mg/dL (0.2-1.0); Blood Urea Nitrogen 15 mg/dL (7-18); Calcium 8.9 mg/dL (8.5-10.1); Carbon Dioxide 26 mmol/L (21.0-32.0); Chloride 105 mmol/L (98-107); Chol/HDL Ratio 5.5 (1-3.5); Cholesterol 160 mg/dL (140-200); Creatinine,Serum 1.31 mg/dL (0.55-1.02); Estimated Glomerular Filt Rate 40 ml/min (>60); GFR (African American) 48 ML/MIN (>60); Globulin 3.6 gm/dl (1.3-3.2); Glucose 134 mg/dL (74-106); HDL Cholesterol 29 mg/dL (29-89); LDL Cholesterol 97 mg/dL (0-130); Potassium 4.2 mmoL/L (3.5-5.1); Sodium 141 mmol/L (136-145); Total Protein,Serum 6.6 gm/dL (6.4-8.2); Triglycerides 169 mg/dL (30-200); VLDL Cholesterol 34 mg/dL (0-40)
[2019-01-12 15:16] LABS: Hemoglobin A1C 6.6 % (0.0-7.0)
== END ==
PROVIDERS: PCP Internal Medicine Adolescent Medicine; Visit Provider Nurse Practitioner Family
DX: D64.9 Anemia, unspecified (principal); Z79.899 Other long term (current) drug therapy
CPT/HCPCS: 36415; 80053; 80061; 83036; 85025

== ENCOUNTER → 2019-08-23 12:36 | Outpatient (CLI) | payer MEDICARE, SELFPAY ==
--- NOTE | 2019-08-23 13:06 | MM_ITS ---
PROCEDURE: MM DIG SCREENING MAMM BI W/CAD DIGITAL BREAST TOMOSYNTHESIS INCLUDED Patient Age:73Y CLINICAL INDICATION: SCREENING 73-year-old, no hormones . Previous biopsies and lumpectomy left breast 2015 t Right breast mammotome biopsy October 2016 the 12 o'clock the the the Family history. Sister with breast cancer COMPARISON: DIGMAMMS MAMMOGRAM SCREEN-GLUE COOK N/C from 02/23/2007 DIGMAMMDX MAMMOGRAM DX-GLUE COOK N/C from 07/14/2011 DMDB DIG MAMM-DX OSITO from 03/16/2015 DMNLL DIG MAMM-NEEDLE LOC-LT from 04/06/2015 DMSB DIG MAMM-SCREEN OSITO W/CAD from 09/01/2016 BR US BREAST-RT COMPLETE W/AXILLA from 09/30/2016 DMDXUAVR DIG MAMM-DX UNI A/VW-RT W/CAD from 09/30/2016 MAMTR US MAMMOTOME-RT from 10/16/2016 DMDXUR DIG MAMM-DX UNI-RT W/CAD from 10/16/2016 [facility] MM Dig screening mamm BI w/CAD from 08/19/2017 BREASTRT US breast RT complete from 09/14/2017 DXRT MM Dig mamm DX unilat RT CAD from 09/14/[address] chest wo con from 06/23/2018 DIG MAMM-SCREEN OSITO from 08/19/2018 TECHNIQUE: Standard CC and MLO images were obtained. R2 CAD reviewed. Bilateral digital breast tomosynthesis included. FINDINGS: Left breast: Multiple surgical clips/with postsurgical scarring and changes upper-outer quadrant appear stable. No new areas of significant concern Scattered numerous calcifications left breast appear overall fairly stable with only very slight progression. A few new dense benign-appearing appearing calcifications-but there also numerous pre-existing calcifications likely reflect fatty necrosis along with a few or the linear secretory type calcifications. Diffuse skin thickening on the left from previous radiation Right breast:: No prominent areas of significant concern of but would suggest patient return for ultrasound and spot views to assure stability feature which I likely was previously biopsied Looking over multiple prior studies note right ultrasounds from 2016 showed area of shadowing at 12 o'clock which with subsequent biopsy with mammotome October 2016.-Biopsy results found benign fibrocystic change however and subsequently this hypoechoic shadowing area was not seen on subsequent ultrasound 2017. On mammography the breast appeared fairly stable with minimal density towards 12 o'clock seen on numerous prior studies However the tomosynthesis right breast a more focal stellate area of best seen on the MLO tomosynthesis, image 50.. On this stellate also seen on today's CC tomosynthesis image 41 medial retroareolar region. This may be an area of scarring which accounting for the hypoechoic feature on 2016 ultrasound but with this ought also note that the percutaneous biopsy clip marker is just posterior to this area but I believe is stable but I would suggest spot view and ultrasound to further evaluate to be cautious in this patient with contralateral breast cancer. Again at this point suspect this reflects scarring. IMPRESSION: RIGHT BREAST: Recommend ultrasound and spot views to assure stability of of small stellate area. Today's Tomosynthesis shows a small stellate area 11 o'clock retroareolar region--likely benign stable feature from old injury or scar. In fact I this area may have accounted for small hypoechoic focus seen 2016 ultrasound which prompted subsequent ultrasound mammotome biopsy-yielded benign tissue a 2017. However with rather stellate appearance on tomosynthesis and patient history of breast cancer within contralateral breast, this fairly stable most likely benign feature warrants follow-up with ultrasound and spot views to further assure stability at this time LEFT BREAST: Stable Postlumpectomy changes. Slight progression of benign appearing calcifications at left as well as right
== END ==
PROVIDERS: PCP Internal Medicine Adolescent Medicine; Visit Provider Internal Medicine Adolescent Medicine
DX: Z12.31 Encounter for screening mammogram for malignant neoplasm of breast (principal)
CPT/HCPCS: 77063; 77067

== ENCOUNTER → 2019-10-05 09:19 | Outpatient (CLI) | payer MEDICARE, SELFPAY ==
[2019-10-05 13:37] LABS: Basophils # 0.1 K/mm3 (0-0.2); Basophils % 0.6 % (0.1-2.0); Eosinophils # 0.2 K/mm3 (0.0-0.4); Eosinophils % 2.3 % (0.1-12.0); Hematocrit 32.3 % (37.0-47.0); Hemoglobin 10.8 g/dL (12.2-16.2); Lymphocytes # 2.6 K/mm3 (0.7-4.5); Lymphocytes % 36.9 % (10-50); Mean Corpuscular HGB Conc 33.6 g/dL (31.8-35.4); Mean Corpuscular Hemoglobin 29.9 pg (27.0-31.2); Mean Corpuscular Volume 89.1 fl (81-99); Mean Platelet Volume 8.2 fl (7.4-10.4); Monocytes # 0.3 K/mm3 (0.1-1.0); Monocytes % 4.3 % (1.7-9.3); Neutrophils # 3.9 K/mm3 (1.8-7.8); Neutrophils % 55.8 % (37.0-80.0); Platelet Count 342 K/mm3 (142-424); Red Blood Count 3.62 M/mm3 (4.20-5.40); Red Cell Distribution Width 13.7 % (11.5-17.5)
[2019-10-05 13:41] LABS: Alanine Aminotransferase 11 U/L (12-78); Albumin Level 3.2 g/dl (3.5-5.0); Alkaline Phosphatase 79 U/L (38-126); Aspartate Amino Transferase 19 U/L (14-36); Bilirubin,Total 0.3 mg/dl (0.2-1.3); Blood Urea Nitrogen 20 mg/dl (7-17); Carbon Dioxide 27 mmol/L (22.0-30.0); Estimated Glomerular Filt Rate 44 ml/min (>60); GFR (African American) 53 ML/MIN (>60); Globulin 3.3 g/dL (1.3-3.2); Total Protein,Serum 6.5 g/dl (6.3-8.2)
[2019-10-05 13:42] LABS: Calcium 9.1 mg/dl (8.4-10.2); Glucose 173 mg/dl (74-100)
[2019-10-05 17:16] LABS: Anion Gap 13.1 mEq/L (5-15); Chloride 104 mmol/L (98-107); Potassium 4.1 mmoL/L (3.5-5.1); Sodium 140 mmol/L (136-145)
== END ==
PROVIDERS: PCP Internal Medicine Adolescent Medicine; Visit Provider Internal Medicine Medical Oncology
DX: C50.912 Malignant neoplasm of unspecified site of left female breast (principal); D64.9 Anemia, unspecified; R91.8 Other nonspecific abnormal finding of lung field
CPT/HCPCS: 36415; 80053; 85025

== ENCOUNTER → 2019-10-06 10:27 | Outpatient (CLI) | payer MEDICARE, SELFPAY ==
--- NOTE | 2019-10-06 10:31 | US_ITS ---
PROCEDURE: US BREAST RT COMPLETE CLINICAL INDICATION: ABN MAMM COMPARISON: US BREASTRT US breast RT complete from 09/14/2017 FINDINGS: There is a somewhat irregular hypoechoic lesion with moderate ill-defined acoustic shadowing measuring approximately 1.1 x 0.5 cm and this corresponds in overall size and location to the focal irregular density in the subareolar region thought to represent post biopsy scarring. In addition there are 2 small hypoechoic lesions at the level o'clock position near the nipple 3-4 mm in size and likely representing tiny cysts. There are 2 normal appearing nodes in the axilla. IMPRESSION: Ultrasound findings appearing to confirm suspicion of post biopsy scarring near the biopsy clip as noted on the mammogram performed the same date in addition to 2 smaller benign-appearing cystic lesions Dictated by: Dr. Reed Wilson MD 10/28/2019 13:24 Dr. Reed Wilson MD in [place] 10/28/2019 13:24
--- NOTE | 2019-10-06 10:32 | CT_ITS ---
PROCEDURE: CT CHEST WO CON CLINICAL INDICATION: PUL NODULES Pulmonary nodules the COMPARISON: CHESTWO CT chest wo con from 06/23/[address] abdomen pelvis wo con from 06/25/2018 TECHNIQUE: Axial images obtained with sagittal and coronal reformats. All CT scans at the facility use one or more dose reduction, viz: automated exposure control, ma/kV adjustment per patient size (including targeted exams where dose is matched to indication, i.e. head), or iterative reconstruction technique. FINDINGS: HEART AND MEDIASTINAL STRUCTURES: There is prominence of the isthmus of the thyroid gland with somewhat nodular contour not significantly changed. Coronary artery calcifications are present and there is calcification of the aortic valve. Normal heart size. LUNGS AND PLEURAL SPACES: 4 mm noncalcified nodule right middle lobe probably unchanged. 4 mm noncalcified nodule left upper lobe laterally unchanged. Previously noted 4 mm nodule in the right lung base medially is not identified on today's exam and may have been inflammatory/infectious in nature. The previous described nodule in the posterior costophrenic sulcus also is not identified. There is evidence of old granulomatous disease. No new nodules are evident. BONY STRUCTURES: No acute bony abnormalities apparent. UPPER ABDOMEN: There is mild nonspecific thickening of the distal esophagus ADDITIONAL FINDINGS: No other significant abnormalities. IMPRESSION: 1. There are stable small pulmonary nodules. There were 2 previously described nodules on the right which are not apparent on today's exam. No new nodules evident. 2. Nonspecific thickening of the esophagus. 3. Coronary artery and aortic valve calcification Dictated by: Sabas Hernandez MD 10/07/2019 09:46 Electronically signed by Sabas Hernandez MD in [facility] 10/07/2019 09:46
== END ==
PROVIDERS: PCP Internal Medicine Adolescent Medicine; Visit Provider Internal Medicine Medical Oncology
DX: C50.912 Malignant neoplasm of unspecified site of left female breast (principal); R91.8 Other nonspecific abnormal finding of lung field
CPT/HCPCS: 71250; 76641

== ENCOUNTER → 2019-10-25 14:37 | Outpatient (CLI) | payer MEDICARE, SELFPAY ==
--- NOTE | 2019-10-25 14:45 | MM_ITS ---
PROCEDURE: MM DIG MAMM DX UNILAT RT CAD Digital Breast Tomosynthesis Included CLINICAL INDICATION: BREAST CANCER Possible developing lesion versus post biopsy scar subareolar region right breast COMPARISON: MG DXRT MM Dig mamm DX unilat RT CAD from 09/14/2017 MG DIG MAMM-SCREEN OSITO from 08/19/2018 MG MM DIG SCREENING MAMM BI W/CAD from 08/23/2019 TECHNIQUE: Standard CC and MLO images and 3D Tomosynthesis was obtained. R2 CAD reviewed. FINDINGS: Spot compression views in the MLO and CC projection demonstrate the somewhat irregular appearing density with associated microcalcifications adjacent to the biopsy clip. Comparison with previous studies dating back to 09/14/2017 shows what I feel is further contraction of a post biopsy scar. Ultrasound performed same date showed hypoechoic lesion with slightly irregular borders most consistent with scarring. There are multiple calcifications in this area of the breast almost all of which were seen previously. IMPRESSION: Probable post biopsy scarring accounting for the irregular lesion seen just deep to the nipple right breast and adjacent to the biopsy clip. BI-RAD Category: 2 Benign Finding(s) FOLLOW-UP: 1YR 1 Year Follow-up (A letter has been sent to the patient regarding results of the study.) Dictated by: Dr. Reed Wilson MD 10/28/2019 07:55 Dr. Reed Wilson MD in [facility] 10/28/2019 07:55
== END ==
PROVIDERS: PCP Internal Medicine Adolescent Medicine; Visit Provider Internal Medicine Medical Oncology
DX: C50.912 Malignant neoplasm of unspecified site of left female breast (principal); R92.8 Other abnormal and inconclusive findings on diagnostic imaging of breast
CPT/HCPCS: 77061; 77065; G0279

== ENCOUNTER 2020-06-11 11:37 | Emergency (ER) | payer MEDICARE, SELFPAY ==
[2020-06-11 11:52] VITALS: BP 194/107; PULSE 83; RESP 16; TEMP 36.8; O2SAT 98; BMI 34.2
--- NOTE | 2020-06-11 11:56 | CT_ITS ---
PROCEDURE: CT HEAD/BRAIN WO CON CLINICAL INDICATION: parasthesia Left hand numbness COMPARISON: CT HDWO CT HEAD W/O CONTRAST from 11/27/2016 TECHNIQUE: Axial images obtained. All CT scans at the facility use one or more dose reduction, viz: automated exposure control, ma/kV adjustment per patient size (including targeted exams where dose is matched to indication, i.e. head), or iterative reconstruction technique. FINDINGS: No midline shift, mass effect, intracranial hemorrhage, hydrocephalus, or extra-axial fluid collection is evident. Nonspecific decreased attenuation is present in the periventricular white matter suggesting ischemic gliotic changes. There is dense calcification of the vertebral arteries. The calvarium has an unremarkable appearance. No mastoid effusion. Mucosal thickening involves the ethmoid sinuses. There is near complete opacification of the left maxillary sinus with an air-fluid level in there is near complete opacification the mid and anterior ethmoids with complete opacification of the central and left aspect of the frontal sinus. IMPRESSION: 1. No acute intracranial findings. 2. Sinusitis Dictated by: Sabas Hernandez MD 06/11/2020 13:12 Sabas Hernandez MD in [facility] 06/11/2020 13:12
--- NOTE | 2020-06-11 11:56 | CT_ITS ---
PROCEDURE: CT CERVICAL SPINE WO CON CLINICAL INDICATION: parasthesia Left hand numbness COMPARISON: No exams were available for comparison TECHNIQUE: Axial images obtained with sagittal and coronal reformats. All CT scans at the facility use one or more dose reduction, viz: automated exposure control, ma/kV adjustment per patient size (including targeted exams where dose is matched to indication, i.e. head), or iterative reconstruction technique. Axial spiral CT scanning performed of the cervical spine beginning at the base of the skull and continuing to the upper T-spine. 3-D multiplanar reconstruction with 3-D manipulation of volumetric data set in image rendering was completed by the radiologist and/or technologist with the supervision of the radiologist on independent workstation. FINDINGS: There is normal alignment. No acute fracture or dislocation evident. Multilevel cervical spondylosis is present as outlined below. C2-C3: Mild degenerative disc disease. C3-C4: Degenerative disc disease with mild endplate and uncovertebral hypertrophy with mild bilateral foraminal narrowing and borderline canal stenosis. C4-C5: Degenerate disc disease with broad-based bulging disc with associated endplate osteophytes with canal stenosis of 8 mm bilateral lateral recess narrowing and bilateral foraminal narrowing. C5-C6: Degenerative disc disease with uncovertebral hypertrophy with bilateral foraminal narrowing C6-C7: Degenerative disc disease with endplate hypertrophic change with left-sided foraminal narrowing. C7-T1: Unremarkable. There is mild nonspecific thickening of the cervical esophagus and upper thoracic esophagus. Thyroid gland has heterogeneous density. IMPRESSION: Multilevel cervical spondylosis with degenerative disc disease, bulging disc, facet and uncovertebral hypertrophy with lateral recess narrowing, foraminal narrowing, and canal stenosis. Please see above for detailed description at each level. Dictated by: Sabas Hernandez MD 06/11/2020 13:26 Sabas Hernandez MD in [facility] 06/11/2020 13:26
[2020-06-11 12:00] VITALS: BP 159/87; PULSE 81; RESP 18; O2SAT 94
[2020-06-11 12:28] LABS: Basophils % 0.5 % (0.1-2.0); Eosinophils # 0.1 K/mm3 (0.0-0.4); Eosinophils % 1.3 % (0.1-12.0); Hematocrit 34.6 % (37.0-47.0); Hemoglobin 10.6 g/dL (12.2-16.2); Lymphocytes # 1.3 K/mm3 (0.7-4.5); Lymphocytes % 22.4 % (10-50); Mean Corpuscular HGB Conc 30.6 g/dL (31.8-35.4); Mean Corpuscular Hemoglobin 28.3 pg (27.0-31.2); Mean Corpuscular Volume 92.5 fl (81-99); Mean Platelet Volume 7.9 fl (7.4-10.4); Monocytes # 0.3 K/mm3 (0.1-1.0); Monocytes % 4.5 % (1.7-9.3); Neutrophils # 4.1 K/mm3 (1.8-7.8); Neutrophils % 71.2 % (37.0-80.0); Platelet Count 311 K/mm3 (142-424); Red Blood Count 3.74 M/mm3 (4.20-5.40); Red Cell Distribution Width 13.2 % (11.5-17.5); White Blood Count 5.8 K/mm3 (4.8-10.8)
[2020-06-11 12:30] LABS: Chloride 101 mmol/L (98-107); Potassium 4.2 mmoL/L (3.5-5.1); Sodium 135 mmol/L (136-145)
[2020-06-11 12:32] LABS: Alanine Aminotransferase 25 U/L (12-78); Aspartate Amino Transferase 30 U/L (14-36); Blood Urea Nitrogen 26 mg/dl (7-17); Creatinine Clearance Estimated 61 mL/min (50-200); Estimated Glomerular Filt Rate 40 ml/min (>60); GFR (African American) 48 ML/MIN (>60)
[2020-06-11 12:33] LABS: Albumin Level 3.9 g/dl (3.5-5.0); Albumin/Globulin Ratio 1.1 (1.1-1.8); Alkaline Phosphatase 101 U/L (38-126); Anion Gap 13.2 mEq/L (5-15); Bilirubin,Total 0.5 mg/dl (0.2-1.3); Calcium 9.4 mg/dl (8.4-10.2); Carbon Dioxide 25 mmol/L (22.0-30.0); Globulin 3.4 g/dL (1.3-3.2); Total Protein,Serum 7.3 g/dl (6.3-8.2)
[2020-06-11 12:37] LABS: Glucose 537 mg/dl (74-100)
--- NOTE | 2020-06-11 12:40 | PC.NURSE ---
notified ER of critical glucose level, he gave verbal order for IVF 1 L of Normal Saline for pt.
--- NOTE | 2020-06-11 13:23 | [facility].EDGENADL ---
ED Disposition Clinical Impression: Left hand paresthesia, Hyperglycemia due to diabetes mellitus Disposition: Home, Self-Care Condition on Discharge: Good Instructions: DI for Hyperglycemia -- Adult Referrals: Carlo Newman MD [Primary Care Provider] - - Critical Care Critical Care Time: No Attestation: On 06/11/20, the high probability of a clinically significant, sudden or life threatening deterioration of the following system(s) required my full and direct attention, intervention and personal management. The time I documented below is in addition to time spent performing reported procedures but includes the following listed in this critical care notation. Medical Decision Making - Medical Records Medical records reviewed: Yes: I reviewed the patient's medical records. - Lobo Inquiry Pt receiving controlled substance: No Vital Signs: 06/11/20 11:52 06/11/20 12:00 Temperature 98.3 F Temperature Source Oral Pulse Rate 81 Pulse Rate [Right] 83 Respiratory Rate 16 18 Blood Pressure 159/87 H Blood Pressure [Right Arm] 194/107 H Blood Pressure Mean 111 Blood Pressure Mean [Right Arm] 136 02 Sat by Pulse Oximetry 98 94 L - Lab Data Lab Results 06/11/20 12:12: WBC 5.8, RBC 3.74 L, Hgb 10.6 L, Hct 34.6 L, MCV 92.5, MCH 28.3, MCHC 30.6 L, RDW 13.2, Plt Count 311, MPV 7.9, Neut % (Auto) 71.2, Lymph % (Auto) 22.4, Carlisle % (Auto) 4.5, Eos % (Auto) 1.3, Baso % (Auto) 0.5, Neut # (Auto) 4.1, Lymph # (Auto) 1.3, Carlisle # (Auto) 0.3, Eos # (Auto) 0.1, Baso # (Auto) 0.0 06/11/20 12:12: Sodium 135 L, Potassium 4.2, Chloride 101, Carbon Dioxide 25, Anion Gap 13.2, BUN 26 H, Creatinine 1.30 H, Estimated Creat Clear 61, Estimated GFR 40 L, Est GFR ( Amer) 48 L, Glucose 537 H*, Calcium 9.4, Total Bilirubin 0.5, AST 30, ALT 25, Alkaline Phosphatase 101, Total Protein 7.3, Albumin 3.9, Globulin 3.4 H, Albumin/Globulin Ratio 1.1 04/05/21 13:55: POC Glucose 480 H* Result diagrams: 06/11/20 12:12 06/11/20 12:12 Orders (Tests/Meds): ED MEDICATIONS Discontinued Medications Generic Name Dose Route Start Last Admin Trade Name Maxime PRN Reason Stop Dose Admin Sodium Chloride 1,000 mls @ 999 mls/hr 06/11/20 12:45 06/11/20 12:45 Sod Chlor 0.9% 1000ml Bag IV 06/11/20 13:45 999 mls/hr .Q1H1M MARILY Administration Insulin Human Lispro 8 unit 06/11/20 13:16 06/11/20 13:21 Humalog 100 Units/Ml 3ml Vial (Ssi) SQ 06/11/20 13:17 8 unit ONCE ONE Administration - CT Data CT Scan: Head, C-Spine Time Received: 14:[address] Reviewed: Yes: I have reviewed the patient's CT results, I have viewed the radiologist's interpretation Findings Narrative: IMPRESSION: 1. No acute intracranial findings. 2. Sinusitis IMPRESSION: Multilevel cervical spondylosis with degenerative disc disease, bulging disc, facet and uncovertebral hypertrophy with lateral recess narrowing, foraminal narrowing, and canal stenosis. Please see above for detailed description at each level. - Reevaluation(s) Time: 14:14 Reevaluation #1: On reevaluation, the patient is feeling better. She states that some of the feeling is coming back to her fingertips already. The patient was severely hyperglycemic on initial presentation. The patient has a longstanding history of diabetes. However she states that she just stopped taking her medications and checking her sugars. I did explain to the patient that she needs to restart her medications. She also needs a follow-up with her primary care physician in 48 hours. Patient was given strict return precautions. Verbalized understanding. Medical Decision Narrative: 74-year-old female presenting with some persistent paresthesias in the fingers left hand. I do believe this is likely radicular secondary to compression in the cervical spine. Symptoms are not consistent with acute CVA. She has had these for the last 5 hours since she woke up. Work-up will be initiat
[2020-06-11 14:08] LABS: POC Glucose,Bedside 480 (70-110)
[2020-06-11 14:23] VITALS: BP 151/80; PULSE 76; RESP 17; TEMP 36.8; O2SAT 98
== END 2020-06-11 14:22 | disposition home or self-care (01) ==
PROVIDERS: Emergency Provider Emergency Medicine; PCP Internal Medicine Adolescent Medicine
DX: E11.65 Type 2 diabetes mellitus with hyperglycemia (principal); R20.2 Paresthesia of skin; M54.12 Radiculopathy, cervical region; I10 Essential (primary) hypertension; E78.5 Hyperlipidemia, unspecified; N28.9 Disorder of kidney and ureter, unspecified; Z79.899 Other long term (current) drug therapy
CPT/HCPCS: 70450; 72125; 80053; 82962; 85025; 99282

== ENCOUNTER → 2020-06-28 09:35 | Outpatient (CLI) | payer MEDICARE, SELFPAY ==
[2020-06-28 13:43] LABS: Basophils # 0.1 K/mm3 (0-0.2); Basophils % 1.1 % (0.1-2.0); Eosinophils # 0.1 K/mm3 (0.0-0.4); Hematocrit 33.7 % (37.0-47.0); Hemoglobin 10.6 g/dL (12.2-16.2); Lymphocytes # 2.3 K/mm3 (0.7-4.5); Lymphocytes % 41.4 % (10-50); Mean Corpuscular HGB Conc 31.5 g/dL (31.8-35.4); Mean Corpuscular Hemoglobin 28.8 pg (27.0-31.2); Mean Corpuscular Volume 91.5 fl (81-99); Mean Platelet Volume 7.9 fl (7.4-10.4); Monocytes # 0.3 K/mm3 (0.1-1.0); Monocytes % 5.3 % (1.7-9.3); Neutrophils # 2.8 K/mm3 (1.8-7.8); Neutrophils % 50.2 % (37.0-80.0); Platelet Count 326 K/mm3 (142-424); Red Blood Count 3.69 M/mm3 (4.20-5.40); Red Cell Distribution Width 13.4 % (11.5-17.5); White Blood Count 5.6 K/mm3 (4.8-10.8)
[2020-06-28 13:49] LABS: Alanine Aminotransferase 19 U/L (12-78); Albumin Level 3.7 g/dl (3.5-5.0); Albumin/Globulin Ratio 1.2 (1.1-1.8); Alkaline Phosphatase 85 U/L (38-126); Aspartate Amino Transferase 32 U/L (14-36); Bilirubin,Total 0.4 mg/dl (0.2-1.3); Blood Urea Nitrogen 35 mg/dl (7-17); Calcium 9.5 mg/dl (8.4-10.2); Carbon Dioxide 26 mmol/L (22.0-30.0); Chloride 105 mmol/L (98-107); Cholesterol 230 mg/dl (140-200); Estimated Glomerular Filt Rate 37 ml/min (>60); GFR (African American) 44 ML/MIN (>60); Globulin 3.1 g/dL (1.3-3.2); Glucose 165 mg/dl (74-100); Total Protein,Serum 6.8 g/dl (6.3-8.2); Triglycerides 283 mg/dl (30-150); VLDL Cholesterol 57 mg/dL (0-40)
[2020-06-28 13:59] LABS: Direct LDL Cholesterol 116.25 mg/dL (100-129)
[2020-06-28 14:50] LABS: Hemoglobin A1C 10.8 % (4.0-6.0)
[2020-06-28 15:08] LABS: Anion Gap 10.7 mEq/L (5-15); Potassium 4.7 mmoL/L (3.5-5.1); Sodium 137 mmol/L (136-145)
[2020-06-28 15:11] LABS: Chol/HDL Ratio 8.5 (1-3.5); HDL Cholesterol 27 mg/dl (40-60)
== END ==
PROVIDERS: Visit Provider Internal Medicine Adolescent Medicine
DX: I10 Essential (primary) hypertension (principal); E78.5 Hyperlipidemia, unspecified; E11.65 Type 2 diabetes mellitus with hyperglycemia
CPT/HCPCS: 36415; 80053; 80061; 83036; 85025

== ENCOUNTER → 2020-09-28 08:53 | Outpatient (CLI) | payer MEDICARE, SELFPAY ==
[2020-09-28 13:46] LABS: Basophils % 0.9 % (0.1-2.0); Eosinophils # 0.1 K/mm3 (0.0-0.4); Eosinophils % 2.6 % (0.1-12.0); Hematocrit 29.7 % (37.0-47.0); Hemoglobin 9.6 g/dL (12.2-16.2); Lymphocytes # 2.1 K/mm3 (0.7-4.5); Lymphocytes % 44.1 % (10-50); Mean Corpuscular HGB Conc 32.3 g/dL (31.8-35.4); Mean Corpuscular Hemoglobin 29.6 pg (27.0-31.2); Mean Corpuscular Volume 91.5 fl (81-99); Mean Platelet Volume 9.1 fl (7.4-10.4); Monocytes # 0.2 K/mm3 (0.1-1.0); Neutrophils # 2.3 K/mm3 (1.8-7.8); Neutrophils % 47.4 % (37.0-80.0); Platelet Count 300 K/mm3 (142-424); Red Blood Count 3.25 M/mm3 (4.20-5.40); Red Cell Distribution Width 13.8 % (11.5-17.5); White Blood Count 4.9 K/mm3 (4.8-10.8)
[2020-09-28 13:50] LABS: Chloride 107 mmol/L (98-107)
[2020-09-28 13:51] LABS: Potassium 4.3 mmoL/L (3.5-5.1); Sodium 141 mmol/L (136-145)
[2020-09-28 13:53] LABS: Alanine Aminotransferase 9 U/L (12-78); Aspartate Amino Transferase 22 U/L (14-36); Blood Urea Nitrogen 24 mg/dl (7-17); Estimated Glomerular Filt Rate 37 ml/min (>60); GFR (African American) 44 ML/MIN (>60)
[2020-09-28 13:54] LABS: Albumin Level 3.5 g/dl (3.5-5.0); Albumin/Globulin Ratio 1.1 (1.1-1.8); Alkaline Phosphatase 73 U/L (38-126); Anion Gap 12.3 mEq/L (5-15); Bilirubin,Total 0.4 mg/dl (0.2-1.3); Carbon Dioxide 26 mmol/L (22.0-30.0); Globulin 3.2 g/dL (1.3-3.2); Glucose 98 mg/dl (74-100); HDL Cholesterol 31 mg/dl (40-60); Total Protein,Serum 6.7 g/dl (6.3-8.2)
[2020-09-28 14:05] LABS: Direct LDL Cholesterol 110.13 mg/dL (100-129)
[2020-09-28 14:10] LABS: Cholesterol 218 mg/dl (140-200); Triglycerides 198 mg/dl (30-150); VLDL Cholesterol 40 mg/dL (0-40)
[2020-09-28 15:18] LABS: Hemoglobin A1C 6.2 % (4.0-6.0)
== END ==
PROVIDERS: Visit Provider Internal Medicine Adolescent Medicine
DX: E11.65 Type 2 diabetes mellitus with hyperglycemia (principal); E78.5 Hyperlipidemia, unspecified
CPT/HCPCS: 36415; 80053; 80061; 83036; 85025

== ENCOUNTER → 2020-10-01 13:00 | Outpatient (CLI) | payer MEDICARE, SELFPAY ==
--- NOTE | 2020-10-01 13:07 | MM_ITS ---
PROCEDURE: MM DIG SCREENING MAMM BI W/CAD Digital Breast Tomosynthesis Included CLINICAL INDICATION: BREAST CANCER Screening, history of breast cancer COMPARISON: MG [facility] MM Dig screening mamm BI w/CAD from 08/19/2017 MG DIG MAMM-SCREEN OSITO from 08/19/2018 MG MM DIG SCREENING MAMM BI W/CAD from 08/23/2019 MG MM DIG MAMM DX UNILAT RT CAD from 10/25/2019 TECHNIQUE: Standard CC and MLO images and 3D Tomosynthesis was obtained. R2 CAD reviewed. FINDINGS: Average fibroglandular tissue. Right breast: Scattered benign-appearing calcifications. There is a stellate area increased density/architectural distortion in the right breast at approximately 1 o'clock. This is similar to 08/23/2019 and as previously described may represent an area of scarring. This area did appear to compress out on the focal spot compression views of 10/25/2019. Left breast: Postsurgical changes with surgical clips in the upper outer left breast. There is diffuse skin thickening as before. Numerous benign-appearing calcifications are noted. Prominent interstitial markings are present within the breast as before. No malignant appearing mass or malignant-appearing microcalcification. There is some skin retraction in the outer aspect of the left breast adjacent to the surgical clips IMPRESSION: Stable appearance of the breast as described above. No convincing evidence of malignancy. BI-RAD Category: 2 Benign Finding FOLLOW-UP: 1 YR 1 Year Follow-up (A letter has been sent to the patient regarding results of the study.) Dictated by: Sabas Hernandez MD 10/05/2020 11:38 Sabas Hernandez MD in [place] 10/05/2020 11:38
== END ==
PROVIDERS: PCP Internal Medicine Adolescent Medicine; Visit Provider Internal Medicine Medical Oncology
DX: Z12.31 Encounter for screening mammogram for malignant neoplasm of breast (principal); Z85.3 Personal history of malignant neoplasm of breast
CPT/HCPCS: 77063; 77067

== ENCOUNTER → 2020-10-22 09:03 | Outpatient (CLI) | payer MEDICARE, SELFPAY ==
[2020-10-22 14:25] LABS: Basophils % 0.6 % (0.1-2.0); Eosinophils # 0.2 K/mm3 (0.0-0.4); Eosinophils % 3.2 % (0.1-12.0); Hematocrit 30.8 % (37.0-47.0); Hemoglobin 9.7 g/dL (12.2-16.2); Lymphocytes # 2.3 K/mm3 (0.7-4.5); Lymphocytes % 40.7 % (10-50); Mean Corpuscular HGB Conc 31.5 g/dL (31.8-35.4); Mean Corpuscular Hemoglobin 28.7 pg (27.0-31.2); Mean Corpuscular Volume 91.1 fl (81-99); Mean Platelet Volume 8.5 fl (7.4-10.4); Monocytes # 0.3 K/mm3 (0.1-1.0); Monocytes % 4.6 % (1.7-9.3); Neutrophils # 2.8 K/mm3 (1.8-7.8); Platelet Count 350 K/mm3 (142-424); Red Blood Count 3.38 M/mm3 (4.20-5.40); Red Cell Distribution Width 13.8 % (11.5-17.5); White Blood Count 5.6 K/mm3 (4.8-10.8)
[2020-10-22 15:10] LABS: Ferritin 55.5 ng/ml (11.1-264)
[2020-10-22 15:40] LABS: Vitamin B12 313 pg/mL (239-931)
[2020-10-22 15:58] LABS: Iron 49 ug/dL (37-170)
[2020-10-22 16:15] LABS: Total Iron Binding Capacity 322 ug/dL (265-497)
[2020-10-23 14:16] LABS: Immunoglobulin A, Qn 268 mg/dL (64-422); Immunoglobulin G, Qn 1273 mg/dL (586-1602); Immunoglobulin M, Qn 77 mg/dL (26-217)
[2020-11-06 11:08] LABS: Albumin 2.8; Alpha-1-Globulin 0.3; Gamma Globulin 1.3; Protein, Total 6.5
[2020-11-06 11:09] LABS: Free Kappa Lt Chains 51.6; Free Lambda Lt Chains 22.2
== END ==
PROVIDERS: Visit Provider Internal Medicine Medical Oncology
DX: D50.9 Iron deficiency anemia, unspecified (principal); C50.912 Malignant neoplasm of unspecified site of left female breast
CPT/HCPCS: 36415; 82607; 82728; 82746; 82784; 83540; 83550; 83883; 84155; 84165; 85025; 86334

== ENCOUNTER → 2021-05-16 09:24 | Outpatient (CLI) | payer MEDICARE, SELFPAY ==
[2021-05-16 14:03] LABS: Alanine Aminotransferase 13 U/L (12-78); Albumin Level 3.6 g/dl (3.5-5.0); Albumin/Globulin Ratio 1.2 (1.1-1.8); Alkaline Phosphatase 74 U/L (38-126); Anion Gap 10.1 mEq/L (5-15); Aspartate Amino Transferase 23 U/L (14-36); Bilirubin,Total 0.5 mg/dl (0.2-1.3); Blood Urea Nitrogen 24 mg/dl (7-17); Calcium 8.7 mg/dl (8.4-10.2); Carbon Dioxide 28 mmol/L (22.0-30.0); Chloride 105 mmol/L (98-107); Chol/HDL Ratio 7.9 (1-3.5); Cholesterol 236 mg/dl (140-200); Estimated Glomerular Filt Rate 37 ml/min (>60); GFR (African American) 44 ML/MIN (>60); Glucose 111 mg/dl (74-100); HDL Cholesterol 30 mg/dl (40-60); Potassium 4.1 mmoL/L (3.5-5.1); Sodium 139 mmol/L (136-145); Total Protein,Serum 6.6 g/dl (6.3-8.2); Triglycerides 197 mg/dl (30-150); VLDL Cholesterol 39 mg/dL (0-40)
[2021-05-16 14:05] LABS: Basophils % 0.9 % (0.1-2.0); Eosinophils # 0.1 K/mm3 (0.0-0.4); Eosinophils % 2.8 % (0.1-12.0); Hematocrit 32.7 % (37.0-47.0); Hemoglobin 10.1 g/dL (12.2-16.2); Lymphocytes # 1.5 K/mm3 (0.7-4.5); Lymphocytes % 35.3 % (10-50); Mean Corpuscular HGB Conc 30.9 g/dL (31.8-35.4); Mean Corpuscular Hemoglobin 29.9 pg (27.0-31.2); Mean Corpuscular Volume 96.8 fl (81-99); Mean Platelet Volume 8.8 fl (7.4-10.4); Monocytes # 0.3 K/mm3 (0.1-1.0); Monocytes % 6.1 % (1.7-9.3); Neutrophils # 2.4 K/mm3 (1.8-7.8); Neutrophils % 54.9 % (37.0-80.0); Platelet Count 349 K/mm3 (142-424); Red Blood Count 3.38 M/mm3 (4.20-5.40); Red Cell Distribution Width 13.6 % (11.5-17.5); White Blood Count 4.4 K/mm3 (4.8-10.8)
[2021-05-16 14:15] LABS: Direct LDL Cholesterol 118.84 mg/dL (100-129)
[2021-05-16 14:34] LABS: Hemoglobin A1C 5.1 % (4.0-6.0)
== END ==
PROVIDERS: Visit Provider Internal Medicine Adolescent Medicine
DX: E11.9 Type 2 diabetes mellitus without complications (principal); N18.32 Chronic kidney disease, stage 3b
CPT/HCPCS: 36415; 80053; 80061; 83036; 85025

== ENCOUNTER → 2021-10-09 09:47 | Outpatient (CLI) | payer MEDICARE, SELFPAY ==
--- NOTE | 2021-10-09 09:51 | MM_ITS ---
PROCEDURE INFORMATION: Exam: MG Bilateral Screening 3D Mammography Exam date and time: 10/09/2021 9:53 AM Age: 76 years old Clinical indication: Screening examination . Remote history of left breast cancer. TECHNIQUE: Imaging protocol: Bilateral Screening tomosynthesis and 2D mammography including computer-aided detection (CAD) when performed. Patient has a bad back with difficulty standing for long period of time. Required multiple breaks during the course of the examination COMPARISON: 1. MG MM DIG SCREENING MAMM BI W/CAD 10/01/2020 1:41 PM 2. MG MM DIG MAMM DX UNILAT RT CAD 10/25/2019 3:34 PM FINDINGS: MAMMOGRAPHY: Breast composition: There are scattered areas of fibroglandular density. Mass: None. Architectural distortion: Stable post operative architectural distortion in the left upper outer quadrant with diffuse skin thickening due to prior lumpectomy and radiation for carcinoma. Calcifications: No suspicious calcifications. Asymmetric density: None. Skin thickening: See above. Axillary adenopathy: None. IMPRESSION: No mammographic evidence of malignancy. Annual screening is recommended unless otherwise clinically indicated. ASSESSMENT: BI-RADS Category 2: Benign
== END ==
PROVIDERS: PCP Internal Medicine Adolescent Medicine; Visit Provider Internal Medicine Medical Oncology
DX: Z12.31 Encounter for screening mammogram for malignant neoplasm of breast (principal); Z85.3 Personal history of malignant neoplasm of breast
CPT/HCPCS: 77063; 77067

== ENCOUNTER → 2021-10-28 13:32 | Outpatient (CLI) | payer MEDICARE, SELFPAY ==
[2021-10-28 14:47] LABS: Basophils % 0.9 % (0.1-2.0); Eosinophils # 0.1 K/mm3 (0.0-0.4); Eosinophils % 2.3 % (0.1-12.0); Hemoglobin 9.7 g/dL (12.2-16.2); Lymphocytes # 1.5 K/mm3 (0.7-4.5); Lymphocytes % 32.9 % (10-50); Mean Corpuscular HGB Conc 30.2 g/dL (31.8-35.4); Mean Corpuscular Hemoglobin 30.3 pg (27.0-31.2); Mean Corpuscular Volume 100.3 fl (81-99); Mean Platelet Volume 8.1 fl (7.4-10.4); Monocytes # 0.3 K/mm3 (0.1-1.0); Monocytes % 7.4 % (1.7-9.3); Neutrophils # 2.6 K/mm3 (1.8-7.8); Neutrophils % 56.5 % (37.0-80.0); Platelet Count 310 K/mm3 (142-424); Red Blood Count 3.19 M/mm3 (4.20-5.40); White Blood Count 4.5 K/mm3 (4.8-10.8)
[2021-10-28 16:20] LABS: Alanine Aminotransferase 12 U/L (12-78); Albumin Level 3.3 g/dl (3.5-5.0); Albumin/Globulin Ratio 1.1 (1.1-1.8); Alkaline Phosphatase 81 U/L (38-126); Anion Gap 9.9 mEq/L (5-15); Aspartate Amino Transferase 25 U/L (14-36); Blood Urea Nitrogen 35 mg/dl (7-17); Calcium 8.5 mg/dl (8.4-10.2); Carbon Dioxide 27 mmol/L (22.0-30.0); Chloride 106 mmol/L (98-107); Estimated Glomerular Filt Rate 26 ml/min (>60); GFR (African American) 31 ML/MIN (>60); Glucose 92 mg/dl (74-100); Potassium 3.9 mmoL/L (3.5-5.1); Sodium 139 mmol/L (136-145); Total Protein,Serum 6.3 g/dl (6.3-8.2)
[2021-10-28 16:22] LABS: Bilirubin,Total < 0.1 mg/dl (0.2-1.3)
[2021-10-30 16:12] LABS: Alpha-1-Globulin 0.3 g/dL (0.0-0.4); Immunoglobulin A, Qn 225 mg/dL (64-422); Immunoglobulin G, Qn 1046 mg/dL (586-1602); Immunoglobulin M, Qn 71 mg/dL (26-217); Protein, Total 6.4 g/dL (6.0-8.5)
[2021-11-02 19:36] LABS: Free Kappa Lt Chains 44.4
== END ==
PROVIDERS: PCP Internal Medicine Adolescent Medicine; Visit Provider Internal Medicine Medical Oncology
DX: Z85.3 Personal history of malignant neoplasm of breast (principal)
CPT/HCPCS: 36415; 80053; 82784; 83883; 84155; 84165; 85025; 86334

== ENCOUNTER → 2021-11-01 13:56 | Outpatient (CLI) | payer MEDICARE, SELFPAY ==
--- NOTE | 2021-11-01 14:00 | CT_ITS ---
FINAL REPORT TECHNIQUE: Axial images were obtained through the chest without contrast. This study was performed with techniques to keep radiation doses as low as reasonably achievable (ALARA). Individualized dose reduction techniques using automated exposure control or adjustment of mA and/or kV according to the patient's size were employed. CLINICAL HISTORY: BREAST CANCER COMPARISON: 10/06/2019 FINDINGS: There is dense coronary artery calcification. There is scarring at the lung bases. The lungs are otherwise clear. The heart size is normal. There is no pericardial or pleural effusion. No suspicious infiltrate or nodule identified. The liver parenchyma is homogeneous. There is a small sliding-type hiatal hernia. The pancreas, adrenals, and kidneys are unremarkable. There is asymmetric skin thickening of the left breast. There are surgical clips in the left breast, probably due to post treatment change. IMPRESSION: No acute process. Reviewed, Interpreted and Dictated by Bienvenido Farah MD Transcribed by Vickie Laguerre Authenticated and [facility]
== END ==
PROVIDERS: PCP Internal Medicine Adolescent Medicine; Visit Provider Internal Medicine Medical Oncology
DX: C50.912 Malignant neoplasm of unspecified site of left female breast (principal)
CPT/HCPCS: 71250

== ENCOUNTER → 2021-12-03 06:38 | Outpatient (CLI) | payer MEDICARE, SELFPAY ==
[2021-12-03 18:44] LABS: Basophils # 0.1 K/mm3 (0-0.2); Basophils % 2.5 % (0.1-2.0); Eosinophils # 0.1 K/mm3 (0.0-0.4); Eosinophils % 2.7 % (0.1-12.0); Hematocrit 31.1 % (37.0-47.0); Hemoglobin 10.1 g/dL (12.2-16.2); Lymphocytes # 1.5 K/mm3 (0.7-4.5); Lymphocytes % 28.5 % (10-50); Mean Corpuscular HGB Conc 32.4 g/dL (31.8-35.4); Mean Corpuscular Hemoglobin 30.4 pg (27.0-31.2); Mean Corpuscular Volume 93.8 fl (81-99); Mean Platelet Volume 8.1 fl (7.4-10.4); Monocytes # 0.3 K/mm3 (0.1-1.0); Monocytes % 6.3 % (1.7-9.3); Neutrophils # 3.1 K/mm3 (1.8-7.8); Platelet Count 312 K/mm3 (142-424); Red Blood Count 3.31 M/mm3 (4.20-5.40); Red Cell Distribution Width 13.6 % (11.5-17.5); Reticulocyte % (Auto) 1.5 % (0.9-3.2); White Blood Count 5.2 K/mm3 (4.8-10.8)
[2021-12-03 18:48] LABS: Alanine Aminotransferase 12 U/L (12-78); Albumin Level 3.3 g/dl (3.5-5.0); Albumin/Globulin Ratio 1.1 (1.1-1.8); Alkaline Phosphatase 78 U/L (38-126); Anion Gap 11.4 mEq/L (5-15); Aspartate Amino Transferase 23 U/L (14-36); Blood Urea Nitrogen 35 mg/dl (7-17); Calcium 8.4 mg/dl (8.4-10.2); Carbon Dioxide 29 mmol/L (22.0-30.0); Chloride 102 mmol/L (98-107); Estimated Glomerular Filt Rate 29 ml/min (>60); GFR (African American) 35 ML/MIN (>60); Globulin 2.9 g/dL (1.3-3.2); Glucose 121 mg/dl (74-100); Potassium 4.4 mmoL/L (3.5-5.1); Sodium 138 mmol/L (136-145); Total Protein,Serum 6.2 g/dl (6.3-8.2)
[2021-12-03 18:49] LABS: Bilirubin,Total < 0.1 mg/dl (0.2-1.3)
[2021-12-03 19:15] LABS: Hemoglobin A1C 5.2 % (4.0-6.0)
[2021-12-03 19:36] LABS: Iron 50 ug/dL (37-170)
[2021-12-03 19:45] LABS: Total Iron Binding Capacity 332 ug/dL (265-497)
[2021-12-03 19:54] LABS: Folate 6.16 ng/mL; Vitamin B12 295 pg/mL (239-931)
[2021-12-05 22:08] LABS: Erythropoietin 24.4 mIU/mL (2.6-18.5)
== END ==
PROVIDERS: PCP Family Medicine; Visit Provider Family Medicine
DX: I12.9 Hypertensive chronic kidney disease with stage 1 through stage 4 chronic kidney disease, or unspecified chronic kidney disease (principal); D63.1 Anemia in chronic kidney disease; D64.9 Anemia, unspecified; E11.9 Type 2 diabetes mellitus without complications; N18.30 Chronic kidney disease, stage 3 unspecified
CPT/HCPCS: 80053; 82607; 82668; 82746; 83021; 83036; 83540; 83550; 85025; 85044; 85660

== ENCOUNTER → 2021-12-09 11:02 | Outpatient (CLI) | payer MEDICARE, SELFPAY ==
--- NOTE | 2021-12-09 11:04 | CA_ITS ---
APPROVED REPORT EXAM: Comprehensive 2D, Doppler, and color-flow Echocardiogram Model And Dye Person: Caitlin Osorio CRT Ht: 5 ft 8 in Wt: 240lbs BSA: 2.21 BP: 148/70 mmHg Indications: Murmur, Diabetes, Hyperlipidemia, Hypertension/HDD, breast CA 2016 chemo pill 2D Dimensions LVOT 1.96 cm (M/F) 1.5-2.5 LA Volume 42.30 mL LA Volume Index 19.10 mL/m2 (M/F) 16-34 M-Mode Dimensions RVDd 2.57 cm (0.9-2.6) LA Diam 3.74 cm (1.9-4.0) LVDd 4.41 cm (3.5-5.7) Ao Diam 3.99 cm (2.0-3.7) LVDs 2.69 cm (3.5-5.7) IVSd 2.16 cm (0.6-1.1) PWd 1.10 cm (0.6-1.1) EF (Teich) 69.60% FS 39.00% EDV (Teich) 88.20 mL ESV (Teich) 26.80 mL LV Diastology E Decel Time 260.00 (160-240 msec) E/A Ratio 0.64 MED E' 8.40 (< 7 cm/sec) MED A' 12.20 cm/s E'/MED E' Ratio 7.45 (>14) LAT E' 6.20 (<10 cm/sec) LAT A' 9.20 cm/s E/LAT E' Ratio 10.10 (>14) Aortic Valve LVOT Max 148.00 (70-110 cm/s) LVOT VTI 37.92 cm AoV Peak Renard. 318.00 (50-130 cm/s) AI PHT 547.00 ms AO Peak GR. 40.60 mmHg AO Mean GR. 24.80 (<5 mmHg) AO VTI 63.95 (18-25 cm) ALNANA (VTI) 1.79 (2.5-4.5 cm2) Mitral Valve MV A Velocity 97.00 (40-130 cm/s) E/A Ratio 0.64 MV Decel. Time 260.00 (160-240 ms) Pulmonary Valve PV Peak Velocity 98.00 (50-150 cm/s) Tricuspid Valve TR P. Velocity 359.00 cm/s RAP Estimate 10.00 mmHg RVSP 61.50 mmHg Left Ventricle Left atrium is mildly enlarged, left ventricle is normal size mild concentric left ventricular hypertrophy, estimated ejection fraction 55% with no regional wall motion abnormality, grade 1 diastolic dysfunction seen without tissue Doppler evidence of raise left atrial pressure. Right Ventricle Right atrium and right ventricle are normal size and contractility. Aortic Valve Aortic valve is thickened and calcified with restriction in the leaflet mobility, mean gradient across aortic valve is 30 mmHg, valve area is not accurately calculated, this is likely moderate aortic stenosis, there is mild aortic insufficiency. Mitral Valve Mitral valve is grossly normal, there is mild mitral regurgitation. Tricuspid Valve Tricuspid valve grossly normal, there is mild tricuspid regurgitation, tricuspid regurgitation jet velocity is inadequate for calculation of the right ventricular systolic pressure. Pulmonic Valve Pulmonic valve is poorly visualized. Great Vessels Aortic root is normal size. Inferior vena cava is poorly visualized. Pericardium No significant pericardial effusion noted. Conclusion 1. Mildly enlarged left atrium, normal left ventricular size, mild concentric left ventricular hypertrophy, estimated ejection fraction 55% with no regional wall motion abnormality, grade 1 diastolic dysfunction seen without tissue Doppler evidence of raise left atrial pressure. 3. Thickened and calcified aortic valve with moderate aortic stenosis, there is mild aortic insufficiency. 4. Mild mitral and tricuspid regurgitation. 5. No significant pericardial effusion. 6. Inferior vena cava is poorly visualized. Electronically signed by : Pollo Javed MD 12/10/2021 06:22:17
== END ==
PROVIDERS: PCP Family Medicine; Visit Provider Family Medicine
DX: R01.1 Cardiac murmur, unspecified (principal)
CPT/HCPCS: 93306

== ENCOUNTER → 2022-10-17 10:46 | Outpatient (CLI) | payer MEDICARE, SELFPAY ==
--- NOTE | 2022-10-17 10:48 | MM_ITS ---
PROCEDURE INFORMATION: Exam: MG Bilateral Screening 3D Mammography Exam date and time: 10/17/2022 10:39 AM Age: 77 years old Clinical indication: Screening examination . History of left breast cancer TECHNIQUE: Imaging protocol: Bilateral Screening tomosynthesis and 2D mammography including computer-aided detection (CAD) when performed. COMPARISON: 1. MG MM DIG SCREENING MAMM BI W/CAD 10/09/2021 9:53 AM 2. MG MM DIG SCREENING MAMM BI W/CAD 10/01/2020 1:41 PM FINDINGS: MAMMOGRAPHY: Breast composition: There are scattered areas of fibroglandular density. Mass: None. Architectural distortion: Stable post operative architectural distortion in the left upper outer quadrant due to prior lumpectomy for carcinoma. Calcifications: No suspicious calcifications. Asymmetric density: None. Skin thickening: Diffuse skin thickening on the left is due to radiation change Axillary adenopathy: None. IMPRESSION: No mammographic evidence of malignancy. Annual screening is recommended unless otherwise clinically indicated. ASSESSMENT: BI-RADS Category 2: Benign
== END ==
PROVIDERS: PCP Family Medicine; Visit Provider Internal Medicine Medical Oncology
DX: Z12.13 Encounter for screening for malignant neoplasm of small intestine (principal); Z85.3 Personal history of malignant neoplasm of breast
CPT/HCPCS: 77063; 77067

== ENCOUNTER → 2022-10-21 14:15 | Outpatient (CLI) | payer MEDICARE, SELFPAY ==
[2022-10-21 18:29] LABS: Basophils % 0.5 % (0.1-2.0); Eosinophils # 0.2 K/mm3 (0.0-0.4); Hematocrit 33.9 % (37.0-47.0); Hemoglobin 10.8 g/dL (12.2-16.2); Lymphocytes # 2.1 K/mm3 (0.7-4.5); Lymphocytes % 32.9 % (10-50); Mean Corpuscular HGB Conc 31.9 g/dL (31.8-35.4); Mean Corpuscular Hemoglobin 29.2 pg (27.0-31.2); Mean Corpuscular Volume 91.7 fl (81-99); Mean Platelet Volume 8.8 fl (7.4-10.4); Monocytes # 0.5 K/mm3 (0.1-1.0); Monocytes % 7.5 % (1.7-9.3); Neutrophils # 3.7 K/mm3 (1.8-7.8); Neutrophils % 56.2 % (37.0-80.0); Platelet Count 346 K/mm3 (142-424); Red Cell Distribution Width 14.7 % (11.5-17.5); White Blood Count 6.5 K/mm3 (4.8-10.8)
[2022-10-21 18:40] LABS: Alanine Aminotransferase 15 U/L (12-78); Albumin Level 3.3 g/dl (3.5-5.0); Albumin/Globulin Ratio 1.1 (1.1-1.8); Alkaline Phosphatase 84 U/L (38-126); Anion Gap 13.3 mEq/L (5-15); Aspartate Amino Transferase 23 U/L (14-36); Bilirubin,Total 0.2 mg/dl (0.2-1.3); Blood Urea Nitrogen 34 mg/dl (7-17); Calcium 9.2 mg/dl (8.4-10.2); Carbon Dioxide 28 mmol/L (22.0-30.0); Chloride 106 mmol/L (98-107); Estimated Glomerular Filt Rate 34 ml/min (>60); GFR (African American) 41 ML/MIN (>60); Globulin 3.1 g/dL (1.3-3.2); Glucose 95 mg/dl (74-100); Potassium 4.3 mmoL/L (3.5-5.1); Sodium 143 mmol/L (136-145); Total Protein,Serum 6.4 g/dl (6.3-8.2)
[2022-10-21 19:25] LABS: Microalbumin/Creatinine Ratio 70.9
[2022-10-21 19:28] LABS: Creatinine,Urine Random 105 mg/dL (Not Estab.)
[2022-10-21 20:16] LABS: Hemoglobin A1C 5.7 % (4.0-6.0)
== END ==
PROVIDERS: PCP Family Medicine; Visit Provider Family Medicine
DX: E11.9 Type 2 diabetes mellitus without complications (principal); I10 Essential (primary) hypertension
CPT/HCPCS: 80053; 82043; 82570; 83036; 85025

== ENCOUNTER 2023-10-20 12:59 | Outpatient (CLI) | payer MEDICARE, SELFPAY ==
--- NOTE | 2023-10-20 13:04 | MM_ITS ---
PROCEDURE INFORMATION: Exam: MG Bilateral Screening 3D Mammography Exam date and time: 10/20/2023 12:50 PM Age: 78 years old Clinical indication: Screening examination. Personal history of left breast cancer, status post lumpectomy and radiation. History of benign right biopsy or excisional biopsy. TECHNIQUE: Imaging protocol: Bilateral Screening tomosynthesis and 2D mammography including computer-aided detection (CAD) when performed. The technologist's notes document that best images possible were obtained to the patient's abilities. COMPARISON: 1. MG MM DIG SCREENING MAMM BI W/CAD 10/17/2022 10:39 AM 2. MG MM DIG SCREENING MAMM BI W/CAD 10/09/2021 9:53 AM 3. MG MM DIG SCREENING MAMM BI W/CAD 10/01/2020 1:41 PM 4. MG MM DIG MAMM DX UNILAT RT CAD 10/25/2019 3:34 PM COMPARISON MORE: MG DIGMAMMS MAMMOGRAM SCREEN-FOR[employer]PER[employer] N/C 02/23/2007 3:07 PM FINDINGS: MAMMOGRAPHY: Breast composition: There are scattered areas of fibroglandular density. Mass: Stable subareolar architectural distortion with questionable central 0.5 cm mass, with posterior biopsy clip, since 2006, evaluated with diagnostic mammography and sonography and 10/25/2019 and 10/28/2019 and was felt to correlate with post biopsy scarring. Architectural distortion: Focal architectural distortion and 10/25/2019 and 10/28/2019 Stable left architectural distortion and surgical clips post lumpectomy. Calcifications: No suspicious calcifications. Asymmetric density: None. Skin thickening: Stable left skin thickening. Axillary adenopathy: None. IMPRESSION: See comments Stable focal mass with related architectural distortion in the right subareolar breast, correlate with interventional surgical history, and if there is correlation, annual screening is recommended. Stable appearance of left lumpectomy and skin thickening. ASSESSMENT: BI-RADS Category 2: Benign
== END 2023-10-20 23:59 | disposition home or self-care (01) ==
LOC: RAD 13:00
PROVIDERS: PCP Family Medicine; Visit Provider Internal Medicine Medical Oncology
DX: Z12.31 Encounter for screening mammogram for malignant neoplasm of breast (principal); Z85.3 Personal history of malignant neoplasm of breast
CPT/HCPCS: 77063; 77067

== ENCOUNTER 2023-11-11 16:39 | Outpatient (CLI) | payer MEDICARE, SELFPAY ==
[2023-11-11 17:03] LABS: Basophils % 0.6 % (0.1-2.0); Eosinophils # 0.1 K/mm3 (0.0-0.4); Eosinophils % 1.4 % (0.1-12.0); Hematocrit 34.8 % (37.0-47.0); Hemoglobin 10.7 g/dL (12.2-16.2); Lymphocytes # 1.7 K/mm3 (0.7-4.5); Mean Corpuscular HGB Conc 30.8 g/dL (31.8-35.4); Mean Corpuscular Hemoglobin 28.1 pg (27.0-31.2); Mean Corpuscular Volume 91.4 fl (81-99); Mean Platelet Volume 8.2 fl (7.4-10.4); Monocytes # 0.4 K/mm3 (0.1-1.0); Monocytes % 5.9 % (1.7-9.3); Neutrophils # 4.4 K/mm3 (1.8-7.8); Platelet Count 448 K/mm3 (142-424); Red Blood Count 3.81 M/mm3 (4.20-5.40); Red Cell Distribution Width 14.3 % (11.5-17.5); White Blood Count 6.6 K/mm3 (4.8-10.8)
[2023-11-11 17:04] LABS: Creatinine,Urine Random 215 mg/dL (Not Estab.)
[2023-11-11 17:07] LABS: Microalbumin/Creatinine Ratio 74.7
[2023-11-11 17:43] LABS: Hemoglobin A1C 5.8 % (4.0-6.0)
[2023-11-11 18:09] LABS: Anion Gap 10.6 mEq/L (5-15); Carbon Dioxide 25 mmol/L (22.0-30.0); Chloride 108 mmol/L (98-107); Potassium 4.6 mmoL/L (3.5-5.1); Sodium 139 mmol/L (136-145)
[2023-11-11 18:10] LABS: Alanine Aminotransferase 20 U/L (12-78); Albumin Level 3.4 g/dl (3.5-5.0); Alkaline Phosphatase 67 U/L (38-126); Aspartate Amino Transferase 29 U/L (14-36); Bilirubin,Total 0.4 mg/dl (0.2-1.3); Blood Urea Nitrogen 39 mg/dl (7-17); Calcium 9.3 mg/dl (8.4-10.2); Chol/HDL Ratio 7.2 (1-3.5); Cholesterol 216 mg/dl (140-200); Estimated Glomerular Filt Rate 29 ml/min (>60); GFR (African American) 35 ML/MIN (>60); Globulin 3.3 g/dL (1.3-3.2); Glucose 120 mg/dl (74-100); HDL Cholesterol 30 mg/dl (40-60); Total Protein,Serum 6.7 g/dl (6.3-8.2); Triglycerides 182 mg/dl (30-150); VLDL Cholesterol 36 mg/dL (0-40)
[2023-11-11 18:20] LABS: Direct LDL Cholesterol 124.77 mg/dL (100-129)
== END 2023-11-11 23:59 | disposition home or self-care (01) ==
LOC: LAB.DROPOF 16:40
PROVIDERS: PCP Family Medicine; Visit Provider Family Medicine
DX: D64.9 Anemia, unspecified; E11.8 Type 2 diabetes mellitus with unspecified complications
CPT/HCPCS: 80053; 80061; 82043; 82570; 83036; 85025

== ENCOUNTER 2024-01-05 15:24 | Outpatient (CLI) | payer MEDICARE, SELFPAY ==
[2024-01-05 16:36] LABS: Basophils # 0.1 K/mm3 (0-0.2); Basophils % 0.7 % (0.1-2.0); Eosinophils # 0.1 K/mm3 (0.0-0.4); Eosinophils % 1.1 % (0.1-12.0); Hematocrit 30.7 % (37.0-47.0); Hemoglobin 10.3 g/dL (12.2-16.2); Lymphocytes # 1.5 K/mm3 (0.7-4.5); Lymphocytes % 21.5 % (10-50); Mean Corpuscular HGB Conc 33.4 g/dL (31.8-35.4); Mean Corpuscular Volume 86.8 fl (81-99); Mean Platelet Volume 7.5 fl (7.4-10.4); Monocytes # 0.4 K/mm3 (0.1-1.0); Monocytes % 5.7 % (1.7-9.3); Neutrophils # 4.9 K/mm3 (1.8-7.8); Neutrophils % 71.1 % (37.0-80.0); Platelet Count 413 K/mm3 (142-424); Red Blood Count 3.54 M/mm3 (4.20-5.40); Red Cell Distribution Width 14.5 % (11.5-17.5); White Blood Count 6.9 K/mm3 (4.8-10.8)
[2024-01-05 17:16] LABS: Anion Gap 15.6 mEq/L (5-15); Blood Urea Nitrogen 43 mg/dl (7-17); Calcium 9.2 mg/dl (8.4-10.2); Carbon Dioxide 24 mmol/L (22.0-30.0); Chloride 102 mmol/L (98-107); Estimated Glomerular Filt Rate 29 ml/min (>60); GFR (African American) 35 ML/MIN (>60); Glucose 103 mg/dl (74-100); Potassium 4.6 mmoL/L (3.5-5.1); Sodium 137 mmol/L (136-145)
== END 2024-01-05 23:59 | disposition home or self-care (01) ==
LOC: LAB.DROPOF 01-06 10:16
PROVIDERS: PCP Family Medicine; Visit Provider Family Medicine
DX: E11.8 Type 2 diabetes mellitus with unspecified complications (principal); R39.9 Unspecified symptoms and signs involving the genitourinary system; N28.9 Disorder of kidney and ureter, unspecified
CPT/HCPCS: 80048; 85025; 87086

== ENCOUNTER 2024-01-11 10:36 | Outpatient (CLI) | payer MEDICARE, SELFPAY ==
[2024-01-11 11:13] LABS: Blood Urea Nitrogen 45 mg/dl (7-17); Estimated Glomerular Filt Rate 15 ml/min (>60); GFR (African American) 18 ML/MIN (>60)
[2024-01-11 14:49] LABS: Microscopic, Urine URINE MICROSCOPIC (MICROSCOPIC)
[2024-01-11 16:53] LABS: Appearance,Urine CLOUDY (Clear); Blood, Urine 3+ (Negative); Color,Urine YELLOW (Yellow); Glucose,Urine (UA) Negative (Negative); Ketones,Urine TRACE (Negative); Leukocyte Esterase,Urine 2+ (Negative); Nitrate,Urine Negative (Negative); Protein,Urine 2+ (Negative); Specific Gravity, Urine >= 1.030 (1.005-1.030); Urobilinogen,Urine 0.2 EU/dl (0.2)
[2024-01-11 17:00] LABS: Bilirubin,Urine 1+ (Negative)
[2024-01-11 17:05] LABS: Bacteria,Urine 3+ /lpf; WBC,Urine TNTC #/hpf (0-3)
== END 2024-01-11 23:59 | disposition home or self-care (01) ==
LOC: LAB 10:37
PROVIDERS: PCP Family Medicine; Visit Provider Urology
DX: N19 Unspecified kidney failure (principal); N39.0 Urinary tract infection, site not specified
CPT/HCPCS: 36415; 81001; 82565; 84520; 87086

== ENCOUNTER 2024-01-28 10:38 | Outpatient (CLI) | payer MEDICARE, SELFPAY ==
--- NOTE | 2024-01-28 10:39 | CT_ITS ---
FINAL REPORT TECHNIQUE: Axial images through the abdomen and pelvis were performed without contrast.This study was performed with techniques to keep radiation doses as low as reasonably achievable, (ALARA). Individualized dose reduction techniques using automated exposure control or adjustment of mA and/or kV according to the patient's size were employed. CLINICAL HISTORY: renal failure COMPARISON: 11/01/2021 FINDINGS: ABDOMEN: The lung bases are clear. The heart size is normal. Liver is homogeneous. Gallbladder is absent.. The spleen is normal. No adrenal mass is identified. The aorta is normal in caliber. There is no significant free fluid or adenopathy. There is a 17 mm nonobstructing left renal stone. There is no hydronephrosis. There is mild tortuosity of the abdominal aorta. PELVIS: There is abnormal mucosal thickening of the proximal sigmoid which is contiguous with the dome of the urinary bladder. Air is seen in the antidependent portion of the urinary bladder raising the question of abnormal communication of the sigmoid colon and concerning for colovesical fistula. Findings are new from prior exam. Findings the urinary bladder is unremarkable. There is no significant free fluid or adenopathy. IMPRESSION: Interval development of abnormal mucosal thickening in the proximal sigmoid colon contiguous with the dome of the urinary bladder, which contains air. Findings are concerning for colovesical fistula and are new from prior exam. Reviewed, Interpreted and Dictated by Bienvenido Farah MD Transcribed by Melissa Saldivar Authenticated and [facility]
== END 2024-01-28 23:59 | disposition home or self-care (01) ==
LOC: RAD 10:39
PROVIDERS: PCP Family Medicine; Visit Provider Urology
DX: N19 Unspecified kidney failure (principal)
CPT/HCPCS: 74176

== ENCOUNTER 2024-02-15 11:33 | Outpatient (CLI) | payer MEDICARE, SELFPAY ==
[2024-02-15 12:41] LABS: Blood Urea Nitrogen 29 mg/dl (7-17); Estimated Glomerular Filt Rate 29 ml/min (>60); GFR (African American) 35 ML/MIN (>60)
[2024-02-15 15:29] LABS: Microscopic, Urine URINE MICROSCOPIC (MICROSCOPIC)
[2024-02-15 15:52] LABS: Appearance,Urine CLEAR (Clear); Blood, Urine 3+ (Negative); Color,Urine YELLOW (Yellow); Glucose,Urine (UA) Negative (Negative); Ketones,Urine Negative (Negative); Leukocyte Esterase,Urine 2+ (Negative); Nitrate,Urine POSITIVE (Negative); Protein,Urine 2+ (Negative); Specific Gravity, Urine 1.025 (1.005-1.030); Urobilinogen,Urine 0.2 EU/dl (0.2)
[2024-02-15 16:32] LABS: Bilirubin,Urine 1+ (Negative)
[2024-02-15 16:33] LABS: Bacteria,Urine 1+ /lpf
== END 2024-02-15 23:59 | disposition home or self-care (01) ==
LOC: LAB 11:35
PROVIDERS: PCP Family Medicine; Visit Provider Urology
DX: N39.0 Urinary tract infection, site not specified (principal); R31.9 Hematuria, unspecified
CPT/HCPCS: 36415; 81001; 82565; 84520; 87086; 87088; 87186

== ENCOUNTER 2024-02-26 09:18 | Day surgery (SDC) | payer MEDICARE, SELFPAY ==
[2024-02-23 17:18] VITALS: BMI 31.4
[2024-02-26 09:34] VITALS: BP 72/50; PULSE 99; RESP 18; TEMP 36.6; O2SAT 97
[2024-02-26 09:44] LABS: POC Glucose,Bedside 122 (70-110)
[2024-02-26] MEDS: 0.9 % SODIUM CHLORIDE 500 ML 25 ML IV (09:56)
[2024-02-26 10:00] VITALS: BP 159/82; PULSE 92; RESP 20; O2SAT 97
--- NOTE | 2024-02-26 10:02 | P.PCN_ITS ---
[facility] Procedure Note Date: 02/26/24 Time: 10:02 Procedure Note:: Chart review: There is concerns over a possible bladder colonic fistula. The patient today says that there are times that she seems to pass gas or something when she starts to void. Before she called that pressure but today she says that it gushes right out-- squirts out at first. The patient is troubled for recurrent urinary tract infections. Her serum creatinine is 1.7. Preop diagnosis: Recurrent UTI/possible vesicocolonic fistula Postop diagnosis: Recurrent UTI/possible vesicocolonic fistula/possible bladder cancer. Operative note: The patient was brought to the cystoscopy suite. She was prepped and draped in the standard fashion. She underwent flexible cystoscopy. Her urethra is unremarkable. On the posterior bladder wall slightly to the left the patient has a raised lesion. This lesion could be consistent with bladder cancer or an inflammatory lesion. Because the patient's CAT scan suggested gas in the bladder and question of colonic fistula this raises concern. Further attention is going to be needed. The patient has significant debris in the bladder.
[2024-02-26 13:12] LABS: Microscopic,Cath URINE MICROSCOPIC (MICROSCOPIC)
[2024-02-26 13:34] LABS: Appearance,Urine/Cath Cloudy (Clear); Color,Urine/Cath Red (Yellow); PH,Urine/Cath 7.5 (5.0-8.5)
[2024-02-26 13:35] LABS: Blood, Urine/Cath 4+ (Negative); Glucose,Urine/Cath (UA) Negative (Negative); Ketones,Urine/Cath Negative (Negative); Nitrate,Cath Negative (Negative); Protein,Urine/Cath 4+ (Negative)
[2024-02-26 13:38] LABS: Bilirubin,Cath Negative (Negative); Leukocyte Esterase,Cath 3+ (Negative); Urobilinogen,Cath 0.2 EU/dl (0.2)
[2024-02-26 14:12] LABS: Amorphous Sediment,Ur/Cath 4+ /lpf; Bacteria,Urine/Cath 4+ /lpf; RBC,Urine/Cath TNTC # /hpf (0-3); Squamous Epithelial Ur./Cath Occasional #/hpf (0-5); WBC,Urine/Cath TNTC #/hpf (0-3)
== END 2024-02-26 10:24 | disposition home or self-care (01) ==
PROVIDERS: PCP Family Medicine; Visit Provider Urology
PROC: 0TJB8ZZ Inspection of Bladder, Via Natural or Artificial Opening Endoscopic (ICD-10-PCS; CPT 52000; principal; 2024-02-26 10:30)
DX: N39.0 Urinary tract infection, site not specified (principal); N32.1 Vesicointestinal fistula; N32.9 Bladder disorder, unspecified; E11.8 Type 2 diabetes mellitus with unspecified complications; Z79.84 Long term (current) use of oral hypoglycemic drugs
CPT/HCPCS: 52000; 81001; 82962; 87086

== ENCOUNTER 2024-03-14 12:01 | Emergency (ER) | payer MEDICARE, SELFPAY ==
[2024-03-14] VITALS (12 sets, daily range): BP systolic 118–155; BP diastolic 69–83; PULSE 82–112; RESP 16–17; TEMP 36.9; O2SAT 96–100; BMI 26.5
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
[2024-03-14 12:28] LABS: Basophils # 0.1 K/mm3 (0-0.2); Basophils % 0.7 % (0.1-2.0); Eosinophils # 0.1 K/mm3 (0.0-0.4); Eosinophils % 1.1 % (0.1-12.0); Hematocrit 32.1 % (37.0-47.0); Hemoglobin 10.1 g/dL (12.2-16.2); Lymphocytes # 1.5 K/mm3 (0.7-4.5); Lymphocytes % 20.7 % (10-50); Mean Corpuscular HGB Conc 31.5 g/dL (31.8-35.4); Mean Corpuscular Hemoglobin 27.9 pg (27.0-31.2); Mean Corpuscular Volume 88.7 fl (81-99); Mean Platelet Volume 8.9 fl (7.4-10.4); Monocytes # 0.4 K/mm3 (0.1-1.0); Monocytes % 5.2 % (1.7-9.3); Neutrophils # 5.3 K/mm3 (1.8-7.8); Neutrophils % 72.2 % (37.0-80.0); Platelet Count 443 K/mm3 (142-424); Red Blood Count 3.62 M/mm3 (4.20-5.40); Red Cell Distribution Width 13.9 % (11.5-17.5); White Blood Count 7.3 K/mm3 (4.8-10.8)
[2024-03-14] MEDS: 0.9 % SODIUM CHLORIDE 1000ML 1,000 ML 999 ML IV (12:44)
[2024-03-14 12:48] LABS: Albumin Level 3.4 g/dl (3.5-5.0); Chloride 105 mmol/L (98-107); Potassium 3.2 mmoL/L (3.5-5.1); Sodium 143 mmol/L (136-145)
[2024-03-14 12:51] LABS: Alanine Aminotransferase 16 U/L (12-78); Alkaline Phosphatase 62 U/L (38-126); Anion Gap 14.2 mEq/L (5-15); Aspartate Amino Transferase 29 U/L (14-36); Bilirubin,Total 0.6 mg/dl (0.2-1.3); Blood Urea Nitrogen 22 mg/dl (7-17); Carbon Dioxide 27 mmol/L (22.0-30.0); Creatinine Clearance Estimated 45 mL/min (50-200); Estimated Glomerular Filt Rate 40 ml/min (>60); GFR (African American) 48 ML/MIN (>60); Globulin 3.4 g/dL (1.3-3.2); Total Protein,Serum 6.8 g/dl (6.3-8.2)
[2024-03-14 12:52] LABS: Calcium 9.1 mg/dl (8.4-10.2); Glucose 122 mg/dl (74-100)
[2024-03-14 13:03] LABS: Microscopic, Urine URINE MICROSCOPIC (MICROSCOPIC)
[2024-03-14 13:11] LABS: Appearance,Urine TURBID (Clear); Blood, Urine 3+ (Negative); Color,Urine RED (Yellow); Glucose,Urine (UA) Negative (Negative); Ketones,Urine Negative (Negative); Leukocyte Esterase,Urine TRACE (Negative); Nitrate,Urine POSITIVE (Negative); Protein,Urine 3+ (Negative); Specific Gravity, Urine 1.025 (1.005-1.030)
[2024-03-14 13:14] LABS: Bacteria,Urine 2+ /lpf; Bilirubin,Urine 1+ (Negative); RBC,Urine TNTC #/hpf (0-3)
[2024-03-14 13:48] LABS: HIV Combo NEGATIVE (Negative)
--- NOTE | 2024-03-14 13:56 | PC.NURSE ---
pt called her son 10 min ago to pick her up. Reviewed d/c instructions with pt
[2024-03-16 05:10] LABS: HCV Ab Non Reactive (Non Reactive)
== END 2024-03-14 15:32 | disposition home or self-care (01) ==
PROVIDERS: Physician Assistant; Emergency Provider Emergency Medicine; PCP Family Medicine
DX: R31.0 Gross hematuria (principal); N32.1 Vesicointestinal fistula; R31.9 Hematuria, unspecified; R30.0 Dysuria; N32.9 Bladder disorder, unspecified
CPT/HCPCS: 80053; 81001; 85025; 86803; 87086; 87389; 96360; 99283; J7030

== ENCOUNTER 2024-04-01 16:07 | Observation (INO) | payer MEDICARE, SELFPAY ==
[2024-04-01] VITALS (12 sets, daily range): BP systolic 113–160; BP diastolic 73–107; PULSE 87–114; RESP 18–20; TEMP 36.8–36.9; O2SAT 97–99; BMI 26.4; BMI 27.3
[2024-04-01 16:45] LABS: VBG Base Excess -2.4 mmol/L (-2.4-2.3); VBG HCO3 22.2 mmol/L (23-30); VBG Oxygen Saturation 69.7 % (50-70); VBG PCO2 35.7 mmol/L (35-51); VBG PH 7.41 mmol/L (7.31-7.41); VBG PO2 35.7 mmol/L (28-40); VBG Total CO2 23.3 mmol/L (23-27)
[2024-04-01 16:46] LABS: Basophils % 0.2 % (0.1-2.0); Hematocrit 32.1 % (37.0-47.0); Hemoglobin 10.1 g/dL (12.2-16.2); Lymphocytes # 0.5 K/mm3 (0.7-4.5); Lymphocytes % 2.4 % (10-50); Mean Corpuscular HGB Conc 31.5 g/dL (31.8-35.4); Mean Corpuscular Hemoglobin 28.3 pg (27.0-31.2); Mean Corpuscular Volume 89.9 fl (81-99); Monocytes # 0.4 K/mm3 (0.1-1.0); Monocytes % 2.2 % (1.7-9.3); Neutrophils # 18.5 K/mm3 (1.8-7.8); Neutrophils % 94.8 % (37.0-80.0); Platelet Count 553 K/mm3 (142-424); Red Blood Count 3.57 M/mm3 (4.20-5.40); White Blood Count 19.5 K/mm3 (4.8-10.8)
--- NOTE | 2024-04-01 16:46 | CT_ITS ---
PROCEDURE INFORMATION: Exam: CT Abdomen And Pelvis With Contrast Exam date and time: 04/01/2024 5:52 PM Age: 78 years old Clinical indication: Other: Leaking stool from urethra TECHNIQUE: Imaging protocol: Computed tomography of the abdomen and pelvis with contrast. Radiation optimization: All CT scans at this facility use at least one of these dose optimization techniques: automated exposure control; mA and/or kV adjustment per patient size (includes targeted exams where dose is matched to clinical indication); or iterative reconstruction. Contrast material: ISOVUE; Contrast volume: 75 ml; Contrast route: IV; COMPARISON: No relevant prior studies available. FINDINGS: Lungs: Scattered areas of bronchial wall thickening which are likely chronic inflammatory. A few areas of subpleural reticulation are noted, nonspecific. Scattered areas of bronchial wall thickening which are likely chronic inflammatory. A few areas of subpleural reticulation are noted, nonspecific. Coronary arteries: There is moderate coronary atherosclerotic disease/calcification although evaluation is limited secondary to the non gated nature of the study. Liver: Normal. Gallbladder and biliary ducts: The patient is status post cholecystectomy. There is dilation of the intrahepatic biliary ducts most likely reflecting post cholecystectomy effect. Pancreas: There is fatty replacement of the pancreas. Spleen: Normal. Adrenal glands: The adrenal glands appear normal. Kidneys and ureters: 1 cm calculus in the left renal collecting system/proximal ureter (image 50 series 3) without upstream hydroureteronephrosis. Stomach and bowel: There is left-sided colitis with wall thickening and mucosal hyperenhancement. Mild fluid distention of small-bowel loops. Appendix: No evidence of appendicitis. Intraperitoneal space: Unremarkable. Vasculature: There is atherosclerotic disease of the visualized aorta and its major branch vessels. There is atherosclerotic disease of the visualized aorta and its major branch vessels. 1 cm peripherally calcified splenic artery aneurysm (image 31 series 3). Lymph nodes: No lymphadenopathy. Urinary bladder: There complex masslike inflammatory changes involving the urinary bladder and sigmoid colon (image 38 series 1001), this measures approximately 7.9 x 5.1 x 3.8 cm. There is significant wall thickening of the urinary bladder. There is mucosal hyperenhancement of the urinary bladder. There is air within the urinary bladder. Reproductive: No acute process. Bones/joints: There is diffuse degenerative disease of the visualized osseous structures. There is diffuse degenerative disease of the visualized osseous structures. There is straightening of the normal spinal curvature. Soft tissues: Unremarkable. IMPRESSION: 1. Masslike erosion between the sigmoid colon and urinary bladder, findings concerning for tumor with associated colovesicular fistula. Chronic inflammatory change may have a similar appearance but malignancy should be suspected until ruled out. 2. Upstream wall thickening of the colon consistent with colitis. Wall thickening of the urinary bladder consistent with cystitis. 3. 1 cm peripherally calcified splenic artery aneurysm (image 31 series 3). 4. 1 cm calculus in the left renal collecting system/proximal ureter (image 50 series 3) without upstream hydroureteronephrosis.
--- NOTE | 2024-04-01 16:47 | HMH.EDGENADL ---
Discharge Plan Disposition Patient Disposition: Admitted Condition: Good Clinical Impressions Clinical Impression: Sepsis Discharge ED Provider: Niyah Etienne General Adult HPI General Chief complaint: Abdominal Pain Stated complaint: DIARRHEA Time Seen by Provider: 04/01/24 16:09 History of Present Illness HPI narrative: This patient is a 78-year-old female with a history of known colovesicular fistula, recurrent urinary tract infection as a result, history of breast cancer, total abdominal hysterectomy, diabetes, and obesity presenting to the emergency department for evaluation with concern for lower abdominal pain, diarrhea, and concerned the diarrhea is coming out of her urethra. She states that she is scheduled for an appointment at for this in May, but they told her that if it got worse to go straight to ER. She states that symptoms been worse over the last few days, especially today. She denies any blood in her stools or dark tarry stools Related Data Previous Rx's ?Medication ?Instructions ?Recorded carvedilol 6.25 mg tablet 6.25 mg PO BID Hypertension 90 11/04/23 days #180 tabs lisinopril 20 mg tablet 20 mg PO DAILY #30 tabs 01/06/24 Allergies Allergy/AdvReac Type Severity Reaction Status Date / Time No Known Allergies Allergy Verified 03/07/24 11:13 [facility] Disclaimer: The information contained in this section may have been updated after the patient was seen, as this information can be updated by other users. Medical History Breast cancer Hyperglycemia due to diabetes mellitus Left hand paresthesia Gangrenous cholecystitis Hypertension Diabetes mellitus Obesity Pancreatitis Heart murmur, systolic Renal insufficiency Anemia Cholelithiasis Surgical History History of bladder surgery History of cholecystectomy H/O breast biopsy H/O lumpectomy History of total abdominal hysterectomy and bilateral salpingo-oophorectomy Family History Father Stroke Mother CHF (congestive heart failure) Social History Smoking Status: Never smoker second hand exposure: Yes alcohol intake: never substance use type: denies use current occupational status: retired Travel in the last 8 weeks: None household members: none housing: house current occupational exposures/hazards: No caffeine: Yes Have you lived/traveled outside [place] in past 30 days?: No Contact w/someone who lives/traveled outside [place] past 30 days?: No Exposure to someone with infectious disease in past 14 days?: No Do you have a fever (greater than 100.4 F or 38 C)?: No Have you tested positive for COVID-19: No Exposed to someone with COVID-19 in past 14 days?: No Do you have a sore throat?: No Do you have a cough?: No Do you have any weakness?: No Are you experiencing any nausea/vomitting?: Yes Do you have any diarrhea?: Yes Are you experiencing any unusual bleeding?: No Do you have any muscle aches/pain?: No Do you have any abdominal pain?: No Are you experiencing loss of taste or smell?: No Other Medical History Have you received the Flu Vaccine for this season: Yes Have you received the Pneumonia Vaccine: No ROS Obtained: Yes All systems reviewed & no additional complaints except as documented Physical Exam General General appearance: alert and in no apparent distress Head Head exam: atraumatic and normocephalic Eye Eye exam: Present normal appearance, PERRL and EOMI ENT ENT exam: Present normal exam, normal oropharynx, mucous membranes moist and normal external ear exam Neck Neck exam: Present normal inspection, full ROM and trachea midline; Absent tenderness Chest Chest inspection: Present normal inspection and symmetric chest wall rise; Absent tenderness Respiratory Respiratory exam: Present normal lung sounds bilaterally; Absent respiratory distress, wheezes, stridor or accessory muscle use Cardiovascular Cardiovascular exam: Present normal rhythm and tachycardia Abdominal Exam Abdominal exam: Present soft and tenderness (lower abdomen); Absent distention, guarding, rebound or rigidity Extremities Exam Extremities exam: Present normal inspection, full ROM and normal capillary refill; Absent tenderness or edema Back Exam Back exam: Present normal inspection and full ROM; Absent tenderness Neurological Exam Neurological exam: Present alert, oriented X3, CN II-XII intact and normal gait; Absent motor sensory deficit Psychiatric Psychiatric exam: Present normal affect and normal mood Skin Skin exam: Present warm and dry Medical Decision Making Medical Records Medical records reviewed: Yes I reviewed the patient's medical records. Screening: Per USPSTF and CDC recommendations, given the prevalence of disease in our region, it is our hospital?s policy to screen for HIV and viral Hepatitis for all patients aged 18 and over and those with ongoing risk factors. Lobo Inquiry Pt receiving controlled substance: No Vital Signs: 04/01/24 16:33 04/01/24 17:31 04/01/24 18:00 Temperature 98.4 F Temperature Source Oral Pulse Rate 103 H 101 H Pulse Rate [Left] 114 H Respiratory Rate 18 Blood Pressure 139/73 147/75 H Blood Pressure [Right Arm] 142/81 H Blood Pressure Mean Blood Pressure Mean [Right Arm] 101 Blood Pressure Source Blood Pressure Source [Right Arm] Automatic Cuff Blood Pressure Position Blood Pressure Position [Right Arm] Sitting 02 Sat by Pulse Oximetry 98 98 97 Oxygen Delivery Method Room Air Room Air Room Air 04/01/24 18:08 04/01/24 19:00 04/01/24 19:30 Temperature Temperature Source Pulse Rate 94 H 87 Pulse Rate [Left] Respiratory Rate Blood Pressure 146/75 H 156/78 H 113/95 H Blood Pressure [Right Arm] Blood Pressure Mean 98 Blood Pressure Mean [Right Arm] Blood Pressure Source Blood Pressure Source [Right Arm] Blood Pressure Position Blood Pressure Position [Right Arm] 02 Sat by Pulse Oximetry 97 99 Oxygen Delivery Method Room Air 04/01/24 20:01 04/01/24 20:30 04/01/24 21:00 Temperature Temperature Source Pulse Rate Pulse Rate [Left] Respiratory Rate Blood Pressure 141/82 H 160/107 H 149/76 H Blood Pressure [Right Arm] Blood Pressure Mean 101 124 100 Blood Pressure Mean [Right Arm] Blood Pressure Source Blood Pressure Source [Right Arm] Blood Pressure Position Blood Pressure Position [Right Arm] 02 Sat by Pulse Oximetry Oxygen Delivery Method 04/01/24 21:28 Temperature 98.4 F Temperature Source Oral Pulse Rate 90 Pulse Rate [Left] Respiratory Rate 20 Blood Pressure 149/76 H Blood Pressure [Right Arm] Blood Pressure Mean Blood Pressure Mean [Right Arm] Blood Pressure Source Automatic Cuff Blood Pressure Source [Right Arm] Blood Pressure Position Supine Blood Pressure Position [Right Arm] 02 Sat by Pulse Oximetry Oxygen Delivery Method Room Air Lab Data Lab results reviewed: Yes I reviewed the patient's lab results. Lab Results 04/01/24 16:29: VBG pH 7.41, VBG pCO2 35.7, VBG pO2 35.7, VBG HCO3 22.2 L, VBG Total CO2 23.3, VBG O2 Saturation 69.7, VBG Base Excess -2.4, VBG Lactic Acid 2.0 04/01/24 16:33: WBC 19.5 H, RBC 3.57 L, Hgb 10.1 L, Hct 32.1 L, MCV 89.9, MCH 28.3, MCHC 31.5 L, RDW 14.0, Plt Count 553 H, MPV 9.0, Neut % (Auto) 94.8 H, Lymph % (Auto) 2.4 L, [place] % (Auto) 2.2, Eos % (Auto) 0.0 L, Baso % (Auto) 0.2, Neut # (Auto) 18.5 H, Lymph # (Auto) 0.5 L, [place] # (Auto) 0.4, Eos # (Auto) 0.0, Baso # (Auto) 0.0, Total Counted 100, Neutrophils % (Manual) 91 H, Band Neutrophils % 1.0, Lymphocytes % (Manual) 4 L, Monocytes % (Manual) 4, Platelet Estimate Slight inc, Giant Platelets 1+, RBC Morphology Normal, Sodium 140, Potassium 4.0, Chloride 107, Carbon Dioxide 23, Anion Gap 14.0, BUN 22 H, Creatinine 1.30 H, Estimated Creat Clear 44, Estimated GFR 40 L, Est GFR ( Amer) 48 L, Glucose 163 H, Lactate 2.0, Calcium 8.4, Total Bilirubin 1.0, AST 28, ALT 17, Alkaline Phosphatase 90, C-Reactive Protein 103.0 H, Total Protein 6.3, Albumin 3.0 L, Globulin 3.3 H, Albumin/Globulin Ratio 0.9 L, Procalcitonin 1.17, HCV Ab MISHEL w/Rflx PCR Qn Negative, HIV Ag/Ab Combo Qual Negative 04/01/24 16:33 04/01/24 16:33 Orders (Tests/Meds): ED MEDICATIONS Generic Name Dose Route Start Last Admin Trade Name Freq PRN Reason Stop Dose Admin Acetaminophen 650 mg 04/01/24 21:32 Acetaminophen 325mg Tab PO 05/01/24 21:31 Q4HP PRN Fever or Mild Pain (1-3) Docusate Sodium 100 mg 04/02/24 09:00 Docusate Sodium 100 Mg Capsule PO 05/02/24 08:59 DAILY MARILY Sodium Chloride 1,000 mls @ 75 mls/hr 04/01/24 21:45 Sod Chlor 0.9% 1000ml Bag IV 05/01/24 21:44 .[id number] [facility] Piperacillin Sod/Tazobactam 50 mls @ 100 mls/hr 04/02/24 04:00 Sod 3.375 gm/ Sodium Chloride IV 04/12/24 03:59 Q8H [facility] Insulin Human Lispro 0 unit 04/02/24 06:00 Humalog 100 Units/Ml 10ml Vial (Ssi) SUBCUT 05/02/24 05:59 ACHS [facility] Protocol Morphine Sulfate 2 mg 04/01/24 21:32 Morphine 2mg/Ml Syringe IV 05/01/24 21:31 Q2HP PRN Severe Pain (7-10) Ondansetron HCl 4 mg 04/01/24 21:32 Ondansetron 4mg/2ml Vial IV 05/01/24 21:31 Q8HP PRN Nausea Sodium Chloride 10 ml 04/01/24 21:36 Sodium Chloride 0.9% 10ml Flush Syringe IV 05/01/24 21:35 NEEDED PRN Maintain IV Site Discontinued Medications Generic Name Dose Route Start Last Admin Trade Name Freq PRN Reason Stop Dose Admin Piperacillin Sod/Tazobactam 50 mls @ 100 mls/hr 04/01/24 18:19 04/01/24 18:33 Sod 3.375 gm/ Sodium Chloride IV 04/01/24 18:48 100 mls/hr ONCE ONE Administration Iopamidol 75 ml 04/01/24 17:52 04/01/24 17:54 Iopamidol-370 (76%);100ml Bottle IV 04/01/24 17:53 75 ml ONCE ONE Administration Morphine Sulfate 4 mg 04/01/24 16:49 04/01/24 16:55 Morphine 4mg/Ml Syringe IV 04/01/24 16:50 4 mg ONCE ONE Administration Ondansetron HCl 4 mg 04/01/24 16:49 04/01/24 16:54 Ondansetron 4mg/2ml Vial IV 04/01/24 16:50 4 mg ONCE ONE Administration Sodium Chloride 10 ml 04/01/24 17:52 04/01/24 17:54 Sodium Chloride 0.9% 10ml Syr (Rad Only) IV 04/01/24 17:53 10 ml ONCE ONE Administration ORDERS Category Date Time Status CT abdomen pelvis w con Stat Cat Scan 04/01/24 16:46 Completed Basic Metabolic Panel [facility] 04/02/24 06:00 Ordered Basic Metabolic Panel [facility] 04/03/24 06:00 Ordered Basic Metabolic Panel [facility] 04/04/24 06:00 Ordered Basic Metabolic Panel [facility] 04/05/24 06:00 Ordered Basic Metabolic Panel [facility] 04/06/24 06:00 Ordered CRP [C-Reactive Protein] Stat Lab 04/01/24 16:33 Completed Complete Blood Count Auto Diff [facility] 04/02/24 06:00 Ordered Complete Blood Count Auto Diff [facility] 04/03/24 06:00 Ordered Complete Blood Count Auto Diff [facility] 04/04/24 06:00 Ordered Complete Blood Count Auto Diff [facility] 04/05/24 06:00 Ordered Complete Blood Count Auto Diff [facility] Lab 04/06/24 06:00 Ordered Complete Blood Count Auto Diff Stat Lab 04/01/24 16:33 Completed Comprehensive Metabolic Panel Stat Lab 04/01/24 16:33 Completed Diarrhea 23 Panel, PCR Stat Lab 04/01/24 16:29 Ordered HIV Combo Stat Lab 04/01/24 16:33 Completed Hepatitis C Ab Qual. W/ RFX Stat Lab 04/01/24 16:33 Completed Lactic Acid [facility] 04/02/24 06:00 Ordered Lactic Acid Stat Lab 04/01/24 16:33 Completed Magnesium [facility] 04/02/24 06:00 Ordered Procalcitonin Stat Lab 04/01/24 16:33 Completed UA [Urinalysis and Microscopic] Stat Lab 04/01/24 16:46 Ordered Blood Culture Stat Micro 04/01/24 18:25 Received Urine Culture Stat Micro 04/01/24 16:46 Ordered VBG [Venous Blood Gas] Stat RT 04/01/24 16:29 Completed Medical Decision Narrative: In summary, this patient is a 78-year-old female presenting to the Emergency Department for evaluation of abdominal pain, diarrhea, and concerned the diarrhea is coming out of her urethra. Differential diagnoses considered include but are not limited to colitis, diverticulitis, gastroenteritis, worsening colonic vesicular fistula, sepsis. Ruling out the most morbid conditions drove assessment. It should be noted patient's history includes colonic vesicular fistula, diabetes, renal insufficiency, obesity, breast cancer which are not at goal therapy. This complicates all aspects of care by increasing patient's risk for morbidity. I reviewed patient's past medical records and noted evaluation here at the beginning of March for this and referral to , who recommended outpatient management.. On exam, the patient is uncomfortable appearing, tachycardic, hypertensive. She has lower abdominal tenderness but no rebound or guarding. No rigidity. Workup included CBC, CMP, lipase, lactic acid, cultures, urinalysis, urine culture, CT abdomen and pelvis with IV contrast. She was given IV morphine and Zofran for symptomatic improvement.. Labs were obtained that demonstrated leukocytosis of 19,000. She also has significant elevation in inflammatory markers. Kidney function is stable. Blood cultures were sent and are pending. Patient was given 1 L bolus of IV fluids but was not given full sepsis bolus given history of cardiac and renal dysfunction On reassessment, patient had good improvement after administration of interventions above. She is nontoxic-appearing but she still has lower abdominal tenderness.. CT scan is concerning for masslike erosion between the sigmoid colon and bladder, tumor versus inflammatory change. She also has findings concerning for colitis and cystitis. I feel this is likely source of infection, so she was started on IV Zosyn. I called and had an interactive discussion with Dr. Houston at who spoke with colorectal surgery. They stated that this is not a surgical emergency and the patient should stay here for IV antibiotics and medical management. They stated that if the patient becomes peritonitic, repeat imaging should be obtained and then they would consider transfer for surgical evaluation, however at this time she needs medicine admission for antibiotics and supportive management. Given this, I had an interactive discussion with the hospitalist who admitted the patient in stable condition. Critical Care Critical Care Time Critical Care Time: No
[2024-04-01 16:49] LABS: MANUAL DIFFERENTIAL MANUAL DIFFERENTIAL (MANUAL DIFF)
[2024-04-01] MEDS: ONDANSETRON 4MG/2ML VIAL 4 MG IV (16:54)
[2024-04-01] MEDS: MORPHINE 4MG/ML SYRINGE 4 MG IV (16:55)
[2024-04-01 16:56] LABS: Chloride 107 mmol/L (98-107); Sodium 140 mmol/L (136-145)
[2024-04-01 16:59] LABS: Alanine Aminotransferase 17 U/L (12-78); Albumin/Globulin Ratio 0.9 (1.1-1.8); Alkaline Phosphatase 90 U/L (38-126); Aspartate Amino Transferase 28 U/L (14-36); Blood Urea Nitrogen 22 mg/dl (7-17); Calcium 8.4 mg/dl (8.4-10.2); Carbon Dioxide 23 mmol/L (22.0-30.0); Creatinine Clearance Estimated 44 mL/min (50-200); Estimated Glomerular Filt Rate 40 ml/min (>60); GFR (African American) 48 ML/MIN (>60); Globulin 3.3 g/dL (1.3-3.2); Glucose 163 mg/dl (74-100); Total Protein,Serum 6.3 g/dl (6.3-8.2)
[2024-04-01 17:16] LABS: Lymphocytes % 4 % (10-50); Monocytes % 4 % (2-9); Neutrophils % 91 % (42-76); Platelet Estimate Slight Inc; RBC Morphology Normal; Total Cells Counted 100
[2024-04-01 17:17] LABS: Giant Platelets 1+
[2024-04-01 17:50] LABS: Procalcitonin 1.17 ng/mL (0.0-2.0)
[2024-04-01] MEDS: IOPAMIDOL-370 (76%);100ML BOTTLE 75 ML IV (17:54)
[2024-04-01] MEDS: SODIUM CHLORIDE 0.9% 10ML SYR (RAD ONLY) 10 ML IV (17:54)
[2024-04-01 18:07] LABS: HIV Combo NEGATIVE (Negative)
[2024-04-01 18:14] LABS: Hepatitis C Ab Qual. W/ RFX NEGATIVE (Negative)
[2024-04-01] MEDS: PIPERACILLIN/TAZO 3.375 GM in 0.9 % SODIUM CHLORIDE 50 ML IV (18:33)
--- NOTE | 2024-04-01 19:27 | PC.NURSE ---
Pt awake and alert Report received from Sae SINCLAIR Resp full and easy Skin pale warm and dry REsp full and easy Speech clear and appropriate.
--- NOTE | 2024-04-01 21:12 | PC.NURSE ---
Pt aware of plans for admission. No change in previous assessment
--- NOTE | 2024-04-01 21:28 | PC.NURSE ---
Report given to Dawna SINCLAIR Pt transported to floor via wheelchair with IV No change in previous assessment at time of transfer
--- NOTE | 2024-04-01 21:51 | PC.NURSE ---
Patient arrived to floor via stretcher from ED at 21:47.
[2024-04-02] VITALS (10 sets, daily range): BP systolic 108–144; BP diastolic 62–87; PULSE 81–101; RESP 14–20; TEMP 36.3–36.5; O2SAT 95–99; BMI 27.3
[2024-04-02] MEDS: 0.9 % SODIUM CHLORIDE 1000ML 1,000 ML 75 ML IV
--- NOTE | 2024-04-02 00:16 | PC.NURSE ---
Post void bladder scan, 1ml is the most measured, patient is not distended, states she feels she got it all out when she used the bathroom.
--- NOTE | 2024-04-02 01:13 | P.HP_ITS ---
History of Present Illness *Admission Date: 04/01/24 *Reason for visit:: Abdominal pain, diarrhea *History of present illness: The patient is a 78-year-old female with a known history of colovesicular fistula, recurrent urinary tract infections, breast cancer, total abdominal hysterectomy, diabetes, and obesity, presenting to the emergency department with lower abdominal pain and diarrhea. She is particularly concerned that the diarrhea may be passing through her urethra. She reports that these symptoms have worsened over the past few days, with today being particularly severe. She has a scheduled appointment at in May for evaluation but was instructed to visit the emergency department if her symptoms worsened. The patient denies blood in her stools, dark tarry stools, fever, or chills. On presentation, the patient was tachycardic and hypertensive, with lower abdominal tenderness on exam but no rebound, guarding, or rigidity. Workup included a CBC, CMP, urinalysis, urine culture, lactic acid, and a CT of the abdomen and pelvis with IV contrast. Labs demonstrated leukocytosis with a WBC count of 19.5, elevated inflammatory markers, stable renal function, and a procalcitonin of 1.17. CT findings were concerning for a mass-like erosion between the sigmoid colon and bladder (likely tumor versus inflammatory change) and features suggestive of colitis and cystitis. The patient was given IV morphine and Zofran for symptomatic relief and a 1 L bolus of IV fluids, though a full sepsis bolus was deferred due to her cardiac and renal history. Blood cultures were sent and are pending. Following IV antibiotic administration with Zosyn, the patient showed clinical improvement but continued to have lower abdominal tenderness. Colorectal surgery at was consulted, and it was determined that this is not a surgical emergency at present. The patient will be admitted for continued IV antibiotics and supportive management. If the patient develops peritonitis or worsens, repeat imaging and reevaluation for surgical intervention will be necessary. [facility] Disclaimer: The information contained in this section may have been updated after the patient was seen, as this information can be updated by other users. Medical History Breast cancer Hyperglycemia due to diabetes mellitus Left hand paresthesia Gangrenous cholecystitis Hypertension Diabetes mellitus Obesity Pancreatitis Heart murmur, systolic Renal insufficiency Anemia Cholelithiasis Surgical History History of bladder surgery History of cholecystectomy H/O breast biopsy H/O lumpectomy History of total abdominal hysterectomy and bilateral salpingo-oophorectomy Family History Father Stroke Mother CHF (congestive heart failure) Social History Smoking Status: Never smoker second hand exposure: Yes alcohol intake: never substance use type: denies use current occupational status: retired Travel in the last 8 weeks: None household members: none housing: house current occupational exposures/hazards: No caffeine: Yes Have you lived/traveled outside [place] in past 30 days?: No Contact w/someone who lives/traveled outside [place] past 30 days?: No Exposure to someone with infectious disease in past 14 days?: No Do you have a fever (greater than 100.4 F or 38 C)?: No Have you tested positive for COVID-19: No Exposed to someone with COVID-19 in past 14 days?: No Do you have a sore throat?: No Do you have a cough?: No Do you have any weakness?: No Are you experiencing any nausea/vomitting?: Yes Do you have any diarrhea?: Yes Are you experiencing any unusual bleeding?: No Do you have any muscle aches/pain?: No Do you have any abdominal pain?: No Are you experiencing loss of taste or smell?: No Other Medical History Have you received the Flu Vaccine for this season: No Have you received the Pneumonia Vaccine: Yes Review of Systems Review of Systems Review of systems (narrative): 14 point review of systems negative outside HPI Meds Home Medications and Allergies Home Medications ?Medication ?Instructions ?Recorded ?Confirmed ?Type carvedilol 6.25 mg tablet 6.25 mg PO BID Hypertension 90 11/04/23 04/01/24 Rx days #180 tabs lisinopril 20 mg tablet 20 mg PO DAILY #30 tabs 01/06/24 04/01/24 Rx IV with Additives 75 mls/hr IV 04/02/24 Rx Pha Request-Vanco Dosing 1 ea Not Applicable CONSULT 04/02/24 Rx [Vancomycin Consult Request] PHARMACY ##0 acetaminophen 325 mg tablet 650 mg (2 x 325 mg) PO Q4HP PRN 04/02/24 Rx Fever Or Mild Pain (1-3) #0 tabs morphine 2 mg/mL intravenous 2 mg IV Q2HP PRN Severe Pain 04/02/24 Rx syringe (7-10) #0 mL piperacillin-tazobactam 3.375 gram 3.375 g IV Q8H #0 ea 04/02/24 Rx intravenous solution vancomycin 1.5 gram/300 mL in 1.5 g (300 mL) IV Q36H #0 mL 04/02/24 Rx diluent combination IV piggyback New Prescriptions to Start Prescriptions: IV with Additives 0.9 % Sodium Chloride 1000ML [Sod Chlor 0.9% 1000mL Bag] 1,000 ml 75 mls/hr IV Allergies Allergy/AdvReac Type Severity Reaction Status Date / Time No Known Allergies Allergy Verified 03/07/24 11:13 Exam Data for Last 24 hours Vital signs and Labs for Last 24 Hours: Temp Pulse Resp BP Pulse Ox O2 Del Method 97.6 F 90 15 135/73 99 Room Air 04/02/24 00:00 04/02/24 00:00 04/02/24 00:00 04/02/24 00:00 04/02/24 00:00 04/02/24 00:43 Laboratory Results - last 24 hr 04/01/24 16:29: VBG pH 7.41, VBG pCO2 35.7, VBG pO2 35.7, VBG HCO3 22.2 L, VBG Total CO2 23.3, VBG O2 Saturation 69.7, VBG Base Excess -2.4, VBG Lactic Acid 2.0 04/01/24 16:33: WBC 19.5 H, RBC 3.57 L, Hgb 10.1 L, Hct 32.1 L, MCV 89.9, MCH 28.3, MCHC 31.5 L, RDW 14.0, Plt Count 553 H, MPV 9.0, Neut % (Auto) 94.8 H, Lymph % (Auto) 2.4 L, [place] % (Auto) 2.2, Eos % (Auto) 0.0 L, Baso % (Auto) 0.2, Neut # (Auto) 18.5 H, Lymph # (Auto) 0.5 L, [place] # (Auto) 0.4, Eos # (Auto) 0.0, Baso # (Auto) 0.0, Total Counted 100, Neutrophils % (Manual) 91 H, Band Neutrophils % 1.0, Lymphocytes % (Manual) 4 L, Monocytes % (Manual) 4, Platelet Estimate Slight inc, Giant Platelets 1+, RBC Morphology Normal, Sodium 140, Potassium 4.0, Chloride 107, Carbon Dioxide 23, Anion Gap 14.0, BUN 22 H, Creatinine 1.30 H, Estimated Creat Clear 44, Estimated GFR 40 L, Est GFR ( Amer) 48 L, Glucose 163 H, Lactate 2.0, Calcium 8.4, Total Bilirubin 1.0, AST 28, ALT 17, Alkaline Phosphatase 90, C-Reactive Protein 103.0 H, Total Protein 6.3, Albumin 3.0 L, Globulin 3.3 H, Albumin/Globulin Ratio 0.9 L, Procalcitonin 1.17, HCV Ab MISHEL w/Rflx PCR Qn Negative, HIV Ag/Ab Combo Qual Negative I & O for Last 24 hours: Intake & Output 03/30/24 03/31/24 04/01/24 04/02/24 23:59 23:59 23:59 23:59 Output Total 150 / 150 Balance -150 / -150 Weight 79.124 kg Constitutional Constitutional: no acute distress *Routine HEENT Exam Head: Present normocephalic Eye: Present EOMI and PERRL ENT: Present mucous membranes moist *Routine Neck Exam Neck: Present supple; Absent lymphadenopathy *Routine Respiratory Exam Respiratory: Present CTA bilaterally *Routine Cardiovascular Exam Cardiovascular: Present RRR *Routine Abdominal Exam Abdominal: Present soft, normoactive bowel sounds and tenderness (Lower quadrants) *Routine Rectal Exam Rectal:: deferred *Routine Genitalia Exam Genitalia:: deferred *Routine Extremities Exam Extremities: Absent cyanosis, clubbing or edema *Routine Skin Exam Skin: Present warm; Absent rash *Routine Neurological Exam Neurological: Present alert and oriented X3 Assessment and Plan *Assessment and plan (1) Sepsis: Status: Acute Category: Medical Code(s): A41.9 - Sepsis, unspecified organism (2) Gross hematuria: Status: Acute Category: Medical Code(s): R31.0 - Gross hematuria (3) Colovesical fistula: Status: Acute Category: Medical Code(s): N32.1 - Vesicointestinal fistula (4) UTI (urinary tract infection): Status: Acute Category: Medical Code(s): N39.0 - Urinary tract infection, site not specified (5) Abdominal pain: Status: Acute Category: Medical Code(s): R10.9 - Unspecified abdominal pain (6) Diarrhea: Status: Acute Category: Medical Code(s): R19.7 - Diarrhea, unspecified Plan Medical Decision Making: The patient is a 78-year-old female with a known colovesicular fistula, presenting with worsening lower abdominal pain, diarrhea, and concerns about stool passing through her urethra. Initial labs revealed significant tanya kocytosis and elevated inflammatory markers, consistent with an infectious or inflammatory process. CT findings are concerning for a mass-like erosion between the sigmoid colon and bladder, likely tumor or inflammatory change, with evidence of colitis and cystitis. Given her stable renal function and non-toxic appearance after initial interventions, the likely source of infection was identified as the colovesicular fistula. IV Zosyn was initiated, and colorectal surgery at recommended medical management without immediate surgical intervention. She remains stable for hospital admission for IV antibiotics, supportive care, and monitoring. Colovesicular Fistula with Suspected Infection (K63.89): * Continue IV Zosyn for broad-spectrum antibiotic coverage. * Monitor for signs of peritonitis or worsening clinical status. * Consider repeat imaging if symptoms worsen or do not improve. * Coordinate follow-up with colorectal surgery for long-term management. * Analgesic as needed Colitis and Cystitis (K52.9, N30.90): * Manage with IV antibiotics and supportive care. * Monitor symptoms and inflammatory markers during admission. * Maintain adequate hydration and reassess as clinically indicated. * Follow urinary culture * Stool sample recommended rule out infectious colitis Leukocytosis (D72.829): * Trend WBC and inflammatory markers daily to assess response to treatment. * Monitor for any other infectious sources. Diabetes Mellitus (E11.9): * Monitor blood glucose levels and manage hyperglycemia with sliding scale insulin as needed. * Adjust diabetes medications as clinically indicated during admission. Renal Insufficiency (N18.9): * Monitor renal function daily, especially given the use of IV antibiotics. * Moderate IV fluid hydration due to diarrhea, monitor for signs of fluid overload * Avoid nephrotoxic medications and ensure adequate hydration. Follow-Up: * Admit to medicine service for IV antibiotics and close monitoring. * Blood and urine cultures are pending, and adjustments to therapy will be made based on sensitivities. * Follow-up imaging or surgical consultation as clinically indicated based on the patient?s progress. Rounded on patient after nurse practitioner. Personally examined and interviewed patient. Agree with exam findings and care plan as documented.
[2024-04-02 03:55] LABS: Adenovirus F 40/41, stool Not Detected (NotDetected); Astrovirus Not Detected (NotDetected); Campylobacter Not Detected (NotDetected); Clostridium Difficile A/B, PCR Not Detected (NotDetected); Cryptosporidium Not Detected (NotDetected); Cyclospora Cayetanesis Not Detected (NotDetected); Entamoeba histolytica Not Detected (NotDetected); Enteroaggregative E coli Not Detected (NotDetected); Enteropathogenic E coli Not Detected (NotDetected); Enterotoxigenic E coli Not Detected (NotDetected); Giardia lamblia Not Detected (NotDetected); Norovirus Not Detected (NotDetected); Plesimonas Shigalloides, PCR Not Detected (NotDetected); Rotavirus A Not Detected (NotDetected); Salmonella, PCR Not Detected (NotDetected); Sapovirus Not Detected (NotDetected); Shiga-like toxin E coli Not Detected (NotDetected); Shigella Enterovasive E coli Not Detected (NotDetected); Vibrio Cholerae Not Detected (NotDetected); Vibrio, PCR Not Detected (NotDetected); Yersinia Entercolitica, PCR Not Detected (NotDetected)
[2024-04-02] MEDS: PIPERCILLIN/TAZO 3.375 GM in 0.9 % SODIUM CHLORIDE 50 ML IV ×2 (04:21→12:52)
[2024-04-02 05:15] LABS: POC Glucose,Bedside 99 (70-110)
[2024-04-02 07:19] LABS: Basophils # 0.1 K/mm3 (0-0.2); Lymphocytes # 1.5 K/mm3 (0.7-4.5); Monocytes # 0.8 K/mm3 (0.1-1.0)
[2024-04-02 07:28] LABS: Basophils % 0.2 % (0.1-2.0); Lymphocytes % 5.7 % (10-50); Mean Corpuscular HGB Conc 31.1 g/dL (31.8-35.4); Mean Corpuscular Hemoglobin 28.1 pg (27.0-31.2); Mean Corpuscular Volume 90.3 fl (81-99); Mean Platelet Volume 9.1 fl (7.4-10.4); Monocytes % 3.2 % (1.7-9.3); Neutrophils # 22.8 K/mm3 (1.8-7.8); Neutrophils % 90.3 % (37.0-80.0); Platelet Count 468 K/mm3 (142-424); Red Blood Count 2.99 M/mm3 (4.20-5.40); Red Cell Distribution Width 14.2 % (11.5-17.5); White Blood Count 25.3 K/mm3 (4.8-10.8)
[2024-04-02 07:29] LABS: Hemoglobin 8.4 g/dL (12.2-16.2)
[2024-04-02 07:31] LABS: MANUAL DIFFERENTIAL MANUAL DIFFERENTIAL (MANUAL DIFF)
[2024-04-02 07:35] LABS: Anion Gap 11.3 mEq/L (5-15); Blood Urea Nitrogen 25 mg/dl (7-17); Carbon Dioxide 25 mmol/L (22.0-30.0); Chloride 106 mmol/L (98-107); Creatinine Clearance Estimated 39 mL/min (50-200); Estimated Glomerular Filt Rate 34 ml/min (>60); GFR (African American) 41 ML/MIN (>60); Glucose 99 mg/dl (74-100); Magnesium 1.5 mg/dl (1.6-2.3); Potassium 4.3 mmoL/L (3.5-5.1); Sodium 138 mmol/L (136-145)
[2024-04-02 07:47] LABS: Lactic Acid 1.2 mmol/L (0.7-2.1)
--- NOTE | 2024-04-02 08:03 | P.PN_ITS ---
Subjective *Date: 04/02/24 *Time: 08:03 Medical Exam Vital signs and Labs for Last 24 Hours: Vital Signs Temp Pulse Pulse Resp BP BP Pulse Ox 04/02/24 07:54 04/02/24 06:42 04/02/24 06:00 81 16 118/63 97 04/02/24 05:00 04/02/24 04:00 82 14 139/79 95 04/02/24 04:00 85 04/02/24 03:00 04/02/24 02:00 84 16 139/70 97 04/02/24 00:43 04/02/24 00:00 90 04/02/24 00:00 90 15 135/73 99 04/02/24 00:00 97.6 F 04/01/24 23:00 04/01/24 21:56 90 04/01/24 21:28 98.4 F 90 20 149/76 H 04/01/24 21:26 04/01/24 21:00 149/76 H 04/01/24 20:30 160/107 H 04/01/24 20:01 141/82 H 04/01/24 19:30 113/95 H 04/01/24 19:00 87 156/78 H 99 04/01/24 18:08 94 H 146/75 H 97 04/01/24 18:00 101 H 147/75 H 97 04/01/24 17:31 103 H 139/73 98 04/01/24 16:46 98.2 F 04/01/24 16:33 98.4 F 114 H 18 142/81 H 98 O2 Del Method 04/02/24 07:54 Room Air 04/02/24 06:42 Room Air 04/02/24 06:00 Room Air 04/02/24 05:00 Room Air 04/02/24 04:00 Room Air 04/02/24 04:00 04/02/24 03:00 Room Air 04/02/24 02:00 Room Air 04/02/24 00:43 Room Air 04/02/24 00:00 04/02/24 00:00 Room Air 04/02/24 00:00 04/01/24 23:00 Room Air 04/01/24 21:56 04/01/24 21:28 Room Air 04/01/24 21:26 Room Air 04/01/24 21:00 04/01/24 20:30 04/01/24 20:01 04/01/24 19:30 04/01/24 19:00 04/01/24 18:08 Room Air 04/01/24 18:00 Room Air 04/01/24 17:31 Room Air 04/01/24 16:46 04/01/24 16:33 Room Air Intake and Output 04/01/24 04/02/24 04/02/24 23:59 07:59 15:59 Intake Total 476 / 476 Output Total 150 / 150 Balance 326 / 326 Intake: Intake, Oral Amount 300 / 300 Intake, Total IV Amount 176 / 176 0.9 % Sodium Chloride 1000ML 1, 126 / 126 000 ml @ 75 mls/hr IV .[id number] [facility] Rx#:[id number] Piperacillin/Tazo 3.375 gm In 0 50 / 50 .9 % Sodium Chloride 50 ml @ 100 mls/hr IV ONCE ONE Rx#: [id number] Output: Output, Urine Amount 150 / 150 Other: Weight 79.124 kg 79.124 kg Patient Weight 04/02/24 23:59 Weight 79.124 kg Laboratory Results - last 24 hr 04/01/24 16:29: VBG pH 7.41, VBG pCO2 35.7, VBG pO2 35.7, VBG HCO3 22.2 L, VBG Total CO2 23.3, VBG O2 Saturation 69.7, VBG Base Excess -2.4, VBG Lactic Acid 2.0 04/01/24 16:33: WBC 19.5 H, RBC 3.57 L, Hgb 10.1 L, Hct 32.1 L, MCV 89.9, MCH 28.3, MCHC 31.5 L, RDW 14.0, Plt Count 553 H, MPV 9.0, Neut % (Auto) 94.8 H, Lymph % (Auto) 2.4 L, [place] % (Auto) 2.2, Eos % (Auto) 0.0 L, Baso % (Auto) 0.2, Neut # (Auto) 18.5 H, Lymph # (Auto) 0.5 L, [place] # (Auto) 0.4, Eos # (Auto) 0.0, Baso # (Auto) 0.0, Total Counted 100, Neutrophils % (Manual) 91 H, Band Neutrophils % 1.0, Lymphocytes % (Manual) 4 L, Monocytes % (Manual) 4, Platelet Estimate Slight inc, Giant Platelets 1+, RBC Morphology Normal, Sodium 140, Potassium 4.0, Chloride 107, Carbon Dioxide 23, Anion Gap 14.0, BUN 22 H, Creatinine 1.30 H, Estimated Creat Clear 44, Estimated GFR 40 L, Est GFR ( Amer) 48 L, Glucose 163 H, Lactate 2.0, Calcium 8.4, Total Bilirubin 1.0, AST 28, ALT 17, Alkaline Phosphatase 90, C-Reactive Protein 103.0 H, Total Protein 6.3, Albumin 3.0 L, Globulin 3.3 H, Albumin/Globulin Ratio 0.9 L, Procalcitonin 1.17, HCV Ab MISHEL w/Rflx PCR Qn Negative, HIV Ag/Ab Combo Qual Negative 04/02/24 00:01: Stl Aeromonas (PCR) Not detected, Stl C. cayetanensis PCR Not detected, Stool Rotavirus (PCR) Not detected, Stl Adenov F 40/41 PCR Not detected, Stool Astrovirus (PCR) Not detected, Stool Campylobacter PCR Not detected, Stl C.difficile Tox PCR Not detected, Stool Cryptosporidium PCR Not detected, Stl E.coli Shiga Tox PCR Not detected, Stool E coli O157 PCR Not detected, Stl Enterotoxigenic E PCR Not detected, Stool EPEC (PCR) Not detected, Stool EAEC (PCR) Not detected, Stl E. histolytica PCR Not detected, Stool Giardia Lamblia PCR Not detected, Stool Salmonella PCR Not detected, Stool Sapovirus (PCR) Not detected, Stl P. shigelloides PCR Not detected, Stl Shigella/EIEC PCR Not detected, St Y.enterocolitica PCR Not detected, Stool Vibrio (PCR) Not detected, Stl Vibrio cholerae PCR Not detected, Stl Norovirus GI/GII PCR Not detected 04/02/24 05:07: POC Glucose 99 04/02/24 07:06: WBC 25.3 H* D, RBC 2.99 L, Hgb 8.4 L D, Hct 27.0 L, MCV 90.3, MCH 28.1, MCHC 31.1 L, RDW 14.2, Plt Count 468 H, MPV 9.1, Neut % (Auto) 90.3 H, Lymph % (Auto) 5.7 L, [place] % (Auto) 3.2, Eos % (Auto) 0.0 L, Baso % (Auto) 0.2, Neut # (Auto) 22.8 H, Lymph # (Auto) 1.5, [place] # (Auto) 0.8, Eos # (Auto) 0.0, Baso # (Auto) 0.1, Sodium 138, Potassium 4.3, Chloride 106, Carbon Dioxide 25, Anion Gap 11.3, BUN 25 H, Creatinine 1.50 H, Estimated Creat Clear 39, Estimated GFR 34 L, Est GFR ( Amer) 41 L, Glucose 99 D, Lactate 1.2, Calcium 8.0 L , Magnesium 1.5 L I & O for Labs for Last 24 Hours: Intake & Output 03/30/24 03/31/24 04/01/24 04/02/24 23:59 23:59 23:59 23:59 Intake Total 476 / 476 Output Total 150 / 150 Balance 326 / 326 Weight 79.124 kg 79.124 kg
[2024-04-02 08:34] LABS: Lymphocytes % 7 % (10-50); Neutrophils % 93 % (42-76); Platelet Estimate Slight Increase; RBC Morphology Normal; Total Cells Counted 100
[2024-04-02 08:39] LABS: Microscopic, Urine URINE MICROSCOPIC (MICROSCOPIC)
[2024-04-02] MEDS: DOCUSATE SODIUM 100 MG CAPSULE PO (08:42)
[2024-04-02 08:51] LABS: Appearance,Urine TURBID (Clear); Blood, Urine 3+ (Negative); Color,Urine BROWN (Yellow); Glucose,Urine (UA) TRACE (Negative); Ketones,Urine TRACE (Negative); Leukocyte Esterase,Urine 2+ (Negative); Nitrate,Urine POSITIVE (Negative); PH,Urine 8.5 (5.0-8.5); Protein,Urine 3+ (Negative); Specific Gravity, Urine 1.015 (1.005-1.030); Urobilinogen,Urine >=8.0 EU/dl (0.2)
[2024-04-02 08:53] LABS: Bilirubin,Urine 2+ (Negative)
[2024-04-02 08:54] LABS: Bacteria,Urine 4+ /lpf; Squamous Epithelial Cell,Urine Occasional #/hpf (0-5); WBC,Urine 20-50 #/hpf (0-3)
[2024-04-02] MEDS: MAGNESIUM SULFATE IN WATER 2 GM/50 ML PIGGYBACK IV ×2 (10:19→11:35)
[2024-04-02 12:33] LABS: POC Glucose,Bedside 117 (70-110)
--- NOTE | 2024-04-02 14:06 | P.CONPHA_ITS ---
Pharmacy Consult Date: 04/02/24 Time: 14:06 Referring provider: DR. FOX Reason for Consult:: VANCOMYCIN Allergies Allergy/AdvReac Type Severity Reaction Status Date / Time No Known Allergies Allergy Verified 03/07/24 11:13 Home Medications ?Medication ?Instructions ?Recorded ?Confirmed ?Type carvedilol 6.25 mg tablet 6.25 mg PO BID Hypertension 90 11/04/23 04/01/24 Rx days #180 tabs lisinopril 20 mg tablet 20 mg PO DAILY #30 tabs 01/06/24 04/01/24 Rx New Prescriptions to Start Prescriptions: Height: 1.7 m Weight: 79.124 kg Laboratory Results:: Laboratory Results - last 24 hr 04/01/24 16:29: VBG pH 7.41, VBG pCO2 35.7, VBG pO2 35.7, VBG HCO3 22.2 L, VBG Total CO2 23.3, VBG O2 Saturation 69.7, VBG Base Excess -2.4, VBG Lactic Acid 2.0 04/01/24 16:33: WBC 19.5 H, RBC 3.57 L, Hgb 10.1 L, Hct 32.1 L, MCV 89.9, MCH 28.3, MCHC 31.5 L, RDW 14.0, Plt Count 553 H, MPV 9.0, Neut % (Auto) 94.8 H, Lymph % (Auto) 2.4 L, [place] % (Auto) 2.2, Eos % (Auto) 0.0 L, Baso % (Auto) 0.2, Neut # (Auto) 18.5 H, Lymph # (Auto) 0.5 L, [place] # (Auto) 0.4, Eos # (Auto) 0.0, Baso # (Auto) 0.0, Total Counted 100, Neutrophils % (Manual) 91 H, Band Neutrophils % 1.0, Lymphocytes % (Manual) 4 L, Monocytes % (Manual) 4, Platelet Estimate Slight inc, Giant Platelets 1+, RBC Morphology Normal, Sodium 140, Potassium 4.0, Chloride 107, Carbon Dioxide 23, Anion Gap 14.0, BUN 22 H, Creatinine 1.30 H, Estimated Creat Clear 44, Estimated GFR 40 L, Est GFR ( Amer) 48 L, Glucose 163 H, Lactate 2.0, Calcium 8.4, Total Bilirubin 1.0, AST 28, ALT 17, Alkaline Phosphatase 90, C-Reactive Protein 103.0 H, Total Protein 6.3, Albumin 3.0 L, Globulin 3.3 H, Albumin/Globulin Ratio 0.9 L, Procalcitonin 1.17, HCV Ab MISHEL w/Rflx PCR Qn Negative, HIV Ag/Ab Combo Qual Negative 04/02/24 00:01: Stl Aeromonas (PCR) Not detected, Stl C. cayetanensis PCR Not detected, Stool Rotavirus (PCR) Not detected, Stl Adenov F 40/41 PCR Not detected, Stool Astrovirus (PCR) Not detected, Stool Campylobacter PCR Not detected, Stl C.difficile Tox PCR Not detected, Stool Cryptosporidium PCR Not d etected, Stl E.coli Shiga Tox PCR Not detected, Stool E coli O157 PCR Not detected, Stl Enterotoxigenic E PCR Not detected, Stool EPEC (PCR) Not detected, Stool EAEC (PCR) Not detected, Stl E. histolytica PCR Not detected, Stool Giardia Lamblia PCR Not detected, Stool Salmonella PCR Not detected, Stool Sapovirus (PCR) Not detected, Stl P. shigelloides PCR Not detected, Stl Shigella/EIEC PCR Not detected, St Y.enterocolitica PCR Not detected, Stool Vibrio (PCR) Not detected, Stl Vibrio cholerae PCR Not detected, Stl Norovirus GI/GII PCR Not detected 04/02/24 05:07: POC Glucose 99 04/02/24 07:06: WBC 25.3 H* D, RBC 2.99 L, Hgb 8.4 L D, Hct 27.0 L, MCV 90.3, MCH 28.1, MCHC 31.1 L, RDW 14.2, Plt Count 468 H, MPV 9.1, Neut % (Auto) 90.3 H, Lymph % (Auto) 5.7 L, [place] % (Auto) 3.2, Eos % (Auto) 0.0 L, Baso % (Auto) 0.2, Neut # (Auto) 22.8 H, Lymph # (Auto) 1.5, [place] # (Auto) 0.8, Eos # (Auto) 0.0, Baso # (Auto) 0.1, Total Counted 100, Neutrophils % (Manual) 93 H, Lymphocytes % (Manual) 7 L, Platelet Estimate Slight increase, RBC Morphology Normal, Sodium 138, Potassium 4.3, Chloride 106, Carbon Dioxide 25, Anion Gap 11.3, BUN 25 H, Creatinine 1.50 H, Estimated Creat Clear 39, Estimated GFR 34 L, Est GFR ( Amer) 41 L, Glucose 99 D, Lactate 1.2, Calcium 8.0 L, Magnesium 1.5 L 04/02/24 08:25: Urine Color Brown, Urine Appearance Turbid, Urine pH 8.5, Ur Specific [place] 1.015, Urine Protein 3+ A, Urine Glucose (UA) Trace, Urine Ketones Trace, Urine Blood 3+ A, Urine Nitrate Positive A, Urine Bilirubin 2+ A, Urine Urobilinogen >=8.0, Ur Leukocyte Esterase 2+ A, Urine RBC None, Urine WBC 20-50, Ur Squamous Epith Cells Occasional, Urine Bacteria 4+ 04/02/24 11:38: POC Glucose 117 H Medical History: Medical History (Updated 04/02/24 @ 01:18 by Sterling Mcgill APRN) Breast cancer Hyperglycemia due to diabetes mellitus Left hand paresthesia Gangrenous cholecystitis Hypertension Diabetes mellitus Obesity Pancreatitis Heart murmur, systolic Renal insufficiency Anemia Cholelithiasis Assessment and Plan Assessment and plan all Dx Assessment and Plan for all problems:: Pharmacokinetic dosing service Objective: Patient: Floor: Age: 78 yo Serum creatinine: 1.5 mg/dL Height: 66.9 Inches Weight (kg): 79.124 Assessment: IBW (kg): 61.37 Dosing wt(kg): 79.124 Estimated Creatinine clearance (ml/min): 29.9 CRCL method: Cockcroft and Gault using ibw(default). Drug selected: Vancomycin Loading dose (mg): 0 Vd (liters): 63.3 (factor used: 0.8 L/kg) Gab (hr-1): 0.029 Half life (hrs): 23.90 Recommended dose: 1500 mg Interval: 36 hrs Infusion time (hrs): 2.0 Predicted peak (mcg/mL): 35.5 Predicted trough (mcg/mL): 13.24 Total body weight is being used for vancomycin dosing. Recommendations: Give Vancomycin 1500 mg q 36 hrs with an expected Cpeak of 35.5 mcg/ml and an expected Ctrough of 13.24 mcg/ml ----Vanco only - ignore for aminoglycosides----- CLvanco= 1.84 L/hr AUC 0-24 /MELODY Data: MELODY 0.5 mcg/mL: AUC/MELODY: 1087.0 MELODY 1.0 mcg/mL: AUC/MELODY: 543.5 --------- MELODY 1.5 mcg/mL: AUC/MELODY: 362.3 MELODY 2.0 mcg/mL: AUC/MELODY: 271.7
--- NOTE | 2024-04-02 14:20 | P.DS_ITS ---
General Admission date:: 04/01/24 Discharge date: 04/02/24 HPI HPI HPI: The patient is a 78-year-old female with a known history of colovesicular fistula, recurrent urinary tract infections, breast cancer, total abdominal hysterectomy, diabetes, and obesity, presenting to the emergency department with lower abdominal pain and diarrhea. She is particularly concerned that the diarrhea may be passing through her urethra. She reports that these symptoms have worsened over the past few days, with today being particularly severe. She has a scheduled appointment at in May for evaluation but was instructed to visit the emergency department if her symptoms worsened. The patient denies blood in her stools, dark tarry stools, fever, or chills. On presentation, the patient was tachycardic and hypertensive, with lower abdominal tenderness on exam but no rebound, guarding, or rigidity. Workup included a CBC, CMP, urinalysis, urine culture, lactic acid, and a CT of the abdomen and pelvis with IV contrast. Labs demonstrated leukocytosis with a WBC count of 19.5, elevated inflammatory markers, stable renal function, and a procalcitonin of 1.17. CT findings were concerning for a mass-like erosion between the sigmoid colon and bladder (likely tumor versus inflammatory change) and features suggestive of colitis and cystitis. The patient was given IV morphine and Zofran for symptomatic relief and a 1 L bolus of IV fluids, though a full sepsis bolus was deferred due to her cardiac and renal history. Blood cultures were sent and are pending. Following IV antibiotic administration with Zosyn, the patient showed clinical improvement but continued to have lower abdominal tenderness. Colorectal surgery at was consulted, and it was determined that this is not a surgical emergency at present. The patient will be admitted for continued IV antibiotics and supportive management. If the patient develops peritonitis or worsens, repeat imaging and reevaluation for surgical intervention will be necessary. Hospital Course Hospital Course Hospital Course: The patient is a 78-year-old female with a suspected colovesicular fistula based on imaging and lacey stool expressed from urethra. She presented to the ER with worsening abdominal pain, diarrhea, chills over the past few days. Concern passing stool through her urethra on presentation to the ER. Initial labs revealed leukocytosis of 19, heart rate at 110, suspected infection meeting sepsis criteria. CT findings are concerning for a mass-like erosion between the sigmoid colon and bladder, likely tumor or inflammatory change, with evidence of colitis and cystitis. Given her stable renal function and non-toxic appearance after initial interventions, the likely source of infection was identified as the colovesicular fistula/urinary tract infection. Initiated on IV Zosyn. Antibiotics broadened to vancomycin given progression of her abdominal symptoms. Case discussed with colorectal surgery, medicine, [facility] . Patient graciously accepted by [facility] for further management and higher level of care. Stable for transfer at this time. Problems addressed as follows: Sepsis Urinary tract infection Colitis and cystitis Colovesicular Fistula with Suspected Infection Leukocytosis - Urine grossly abnormal with positive nitrate, 3+ blood, 2+ leuk esterase, 20- 50 white cells and 4+ bacteria. Urine culture initially sent to the lab for evaluation was rejected as they suspected it was stool. After discussion, second sample excepted for culture given lacey stool appearance and suspected pathology. -Initiated on vancomycin and Zosyn. White count increased to 25,000 following morning after admission. Patient remained afebrile and had improvement in vitals after fluids however abdominal exam became more concerning. Patient does not want to move or have her chair bumped. Describes pressure sensation in her abdomen. Concern for local inflammation consistent with colitis and bladder inflammation evaluated on imaging versus peritonitis given the fact that she has pain to palpation diffusely and questionable rebound pain. Pain diffuse but worse in lower abdomen. - Continue morphine 2 mg every 2 hours as needed for pain. Zofran as needed for nausea or vomiting. -Cultures urine cultures obtained, still pending at transfer time. Stool panel obtained and negative - Procalcitonin elevated on admission at 1.17. CRP elevated at 103 Diabetes Mellitus: -Per history patient has diabetes however her most recent A1c is normal at 5.5 four months ago. Glucose normal at 99 on morning labs. No indication for insulin at this time. CKD 3B - Creatinine at baseline at 1.5, BUN 25, electrolytes normal sodium 138, potassium 4.3. Renally dosing medications during admission. CT of abdomen power shared with Total time spent on discharge 36 minutes in counseling, documentation, chart review, and direct care with patient. Exam Data for Last 24 hours Vital signs and Labs for Last 24 Hours: Temp Pulse Resp BP Pulse Ox O2 Del Method 97.4 F L 94 H 20 123/74 96 Room Air 04/02/24 08:00 04/02/24 12:00 04/02/24 12:00 04/02/24 12:00 04/02/24 12:00 04/02/24 12:00 Laboratory Results - last 24 hr 04/01/24 16:29: VBG pH 7.41, VBG pCO2 35.7, VBG pO2 35.7, VBG HCO3 22.2 L, VBG Total CO2 23.3, VBG O2 Saturation 69.7, VBG Base Excess -2.4, VBG Lactic Acid 2.0 04/01/24 16:33: WBC 19.5 H, RBC 3.57 L, Hgb 10.1 L, Hct 32.1 L, MCV 89.9, MCH 28.3, MCHC 31.5 L, RDW 14.0, Plt Count 553 H, MPV 9.0, Neut % (Auto) 94.8 H, Lym ph % (Auto) 2.4 L, Jenkins % (Auto) 2.2, Eos % (Auto) 0.0 L, Baso % (Auto) 0.2, Neut # (Auto) 18.5 H, Lymph # (Auto) 0.5 L, Jenkins # (Auto) 0.4, Eos # (Auto) 0.0, Baso # (Auto) 0.0, Total Counted 100, Neutrophils % (Manual) 91 H, Band Neutrophils % 1.0, Lymphocytes % (Manual) 4 L, Monocytes % (Manual) 4, Platelet Estimate Slight inc, Giant Platelets 1+, RBC Morphology Normal, Sodium 140, Potassium 4.0, Chloride 107, Carbon Dioxide 23, Anion Gap 14.0, BUN 22 H, Creatinine 1.30 H, Estimated Creat Clear 44, Estimated GFR 40 L, Est GFR ( Amer) 48 L, Glucose 163 H, Lactate 2.0, Calcium 8.4, Total Bilirubin 1.0, AST 28, ALT 17, Alkaline Phosphatase 90, C-Reactive Protein 103.0 H, Total Protein 6.3, Albumin 3.0 L, Globulin 3.3 H, Albumin/Globulin Ratio 0.9 L, Procalcitonin 1.17, HCV Ab MISHEL w/Rflx PCR Qn Negative, HIV Ag/Ab Combo Qual Negative 04/02/24 00:01: Stl Aeromonas (PCR) Not detected, Stl C. cayetanensis PCR Not detected, Stool Rotavirus (PCR) Not detected, Stl Adenov F 40/41 PCR Not detected, Stool Astrovirus (PCR) Not detected, Stool Campylobacter PCR Not detected, Stl C.difficile Tox PCR Not detected, Stool Cryptosporidium PCR Not detected, Stl E.coli Shiga Tox PCR Not detected, Stool E coli O157 PCR Not detected, Stl Enterotoxigenic E PCR Not detected, Stool EPEC (PCR) Not detected, Stool EAEC (PCR) Not detected, Stl E. histolytica PCR Not detected, Stool Giardia Lamblia PCR Not detected, Stool Salmonella PCR Not detected, Stool Sapovirus (PCR) Not detected, Stl P. shigelloides PCR Not detected, Stl Shigella/EIEC PCR Not detected, St Y.enterocolitica PCR Not detected, Stool Vibrio (PCR) Not detected, Stl Vibrio cholerae PCR Not detected, Stl Norovirus GI/GII PCR Not detected 04/02/24 05:07: POC Glucose 99 04/02/24 07:06: WBC 25.3 H* D, RBC 2.99 L, Hgb 8.4 L D, Hct 27.0 L, MCV 90.3, MCH 28.1, MCHC 31.1 L, RDW 14.2, Plt Count 468 H, MPV 9.1, Neut % (Auto) 90.3 H, Lymph % (Auto) 5.7 L, Jenkins % (Auto) 3.2, Eos % (Auto) 0.0 L, Baso % (Auto) 0.2, Neut # (Auto) 22.8 H, Lymph # (Auto) 1.5, Jenkins # (Auto) 0.8, Eos # (Auto) 0.0, Baso # (Auto) 0.1, Total Counted 100, Neutrophils % (Manual) 93 H, Lymphocytes % (Manual) 7 L, Platelet Estimate Slight increase, RBC Morphology Normal, Sodium 138, Potassium 4.3, Chloride 106, Carbon Dioxide 25, Anion Gap 11.3, BUN 25 H, Creatinine 1.50 H, Estimated Creat Clear 39, Estimated GFR 34 L, Est GFR ( Amer) 41 L, Glucose 99 D, Lactate 1.2, Calcium 8.0 L, Magnesium 1.5 L 04/02/24 08:25: Urine Color Brown, Urine Appearance Turbid, Urine pH 8.5, Ur Specific [place] 1.015, Urine Protein 3+ A, Urine Glucose (UA) Trace, Urine Ketones Trace, Urine Blood 3+ A, Urine Nitrate Positive A, Urine Bilirubin 2+ A, Urine Urobilinogen >=8.0, Ur Leukocyte Esterase 2+ A, Urine RBC None, Urine WBC 20-50, Ur Squamous Epith Cells Occasional, Urine Bacteria 4+ 04/02/24 11:38: POC Glucose 117 H I & O for Last 24 hours: Intake & Output 03/30/24 03/31/24 04/01/24 04/02/24 23:59 23:59 23:59 23:59 Intake Total 831 / 831 Output Total 220 / 220 Balance 611 / 611 Weight 79.124 kg 79.124 kg Constitutional Constitutional: mild distress, obese and cooperative *Routine HEENT Exam Head: Present normocephalic Eye: Present EOMI and PERRL ENT: Present mucous membranes moist *Routine Neck Exam Neck: Present supple; Absent lymphadenopathy *Routine Respiratory Exam Respiratory: Present CTA bilaterally; Absent respiratory distress, rhonchi, stridor, wheezes or crackles *Routine Cardiovascular Exam Cardiovascular: Present RRR *Routine Abdominal Exam Abdominal: Present soft, normoactive bowel sounds, tenderness, rebound and guarding Comments: Peritoneal signs *Routine Rectal Exam Patient deferred: visual exam *Routine Exam Patient deferred: external exam *Routine Extremities Exam Extremities: Absent cyanosis, clubbing or edema *Routine Skin Exam Skin: Present intact and warm; Absent rash *Routine Neurological Exam Neurological: Present alert, oriented X3 and moving all extremities; Absent altered mental status Results Data Completed and Pending Labs on day of discharge: Labs from last 24 hours 04/02/24 04/02/24 04/02/24 11:38 08:25 07:06 WBC 25.3 H* D RBC 2.99 L Hgb 8.4 L D Hct 27.0 L MCV 90.3 MCH 28.1 MCHC 31.1 L RDW 14.2 Plt Count 468 H MPV 9.1 Neut % (Auto) 90.3 H Lymph % (Auto) 5.7 L Jenkins % (Auto) 3.2 Eos % (Auto) 0.0 L Baso % (Auto) 0.2 Neut # (Auto) 22.8 H Lymph # (Auto) 1.5 Jenkins # (Auto) 0.8 Eos # (Auto) 0.0 Baso # (Auto) 0.1 Total Counted 100 Neutrophils % (Manual) 93 H Band Neutrophils % Lymphocytes % (Manual) 7 L Monocytes % (Manual) Platelet Estimate Slight increase Giant Platelets RBC Morphology Normal VBG pH VBG pCO2 VBG pO2 VBG HCO3 VBG Total CO2 VBG O2 Saturation VBG Base Excess VBG Lactic Acid Sodium 138 Potassium 4.3 Chloride 106 Carbon Dioxide 25 Anion Gap 11.3 BUN 25 H Creatinine 1.50 H Estimated Creat Clear 39 Estimated GFR 34 L Est GFR ( Amer) 41 L Glucose 99 D POC Glucose 117 H Lactate 1.2 Calcium 8.0 L Magnesium 1.5 L Total Bilirubin AST ALT Alkaline Phosphatase C-Reactive Protein Total Protein Albumin Globulin Albumin/Globulin Ratio Procalcitonin Urine Color Brown Urine Appearance Turbid Urine pH 8.5 Ur Specific [place] 1.015 Urine Protein 3+ A Urine Glucose (UA) Trace Urine Ketones Trace Urine Blood 3+ A Urine Nitrate Positive A Urine Bilirubin 2+ A Urine Urobilinogen >=8.0 Ur Leukocyte Esterase 2+ A Urine RBC None Urine WBC 20-50 Ur Squamous Epith Cells Occasional Urine Bacteria 4+ Stl Aeromonas (PCR) Stl C. cayetanensis PCR Stool Rotavirus (PCR) Stl Adenov F 40/41 PCR Stool Astrovirus (PCR) Stool Campylobacter PCR Stl C.difficile Tox PCR Stool Cryptosporidium PCR Stl E.coli Shiga Tox PCR Stool E coli O157 PCR Stl Enterotoxigenic E PCR Stool EPEC (PCR) Stool EAEC (PCR) Stl E. histolytica PCR Stool Giardia Lamblia PCR Stool Salmonella PCR Stool Sapovirus (PCR) Stl P. shigelloides PCR Stl Shigella/EIEC PCR St Y.enterocolitica PCR Stool Vibrio (PCR) Stl Vibrio cholerae PCR Stl Norovirus GI/GII PCR HCV Ab MISHEL w/Rflx PCR Qn HIV Ag/Ab Combo Qual 04/02/24 04/02/24 04/01/24 05:07 00:01 16:33 WBC 19.5 H RBC 3.57 L Hgb 10.1 L Hct 32.1 L MCV 89.9 MCH 28.3 MCHC 31.5 L RDW 14.0 Plt Count 553 H MPV 9.0 Neut % (Auto) 94.8 H Lymph % (Auto) 2.4 L Jenkins % (Auto) 2.2 Eos % (Auto) 0.0 L Baso % (Auto) 0.2 Neut # (Auto) 18.5 H Lymph # (Auto) 0.5 L Jenkins # (Auto) 0.4 Eos # (Auto) 0.0 Baso # (Auto) 0.0 Total Counted 100 Neutrophils % (Manual) 91 H Band Neutrophils % 1.0 Lymphocytes % (Manual) 4 L Monocytes % (Manual) 4 Platelet Estimate Slight inc Giant Platelets 1+ RBC Morphology Normal VBG pH VBG pCO2 VBG pO2 VBG HCO3 VBG Total CO2 VBG O2 Saturation VBG Base Excess VBG Lactic Acid Sodium 140 Potassium 4.0 Chloride 107 Carbon Dioxide 23 Anion Gap 14.0 BUN 22 H Creatinine 1.30 H Estimated Creat Clear 44 Estimated GFR 40 L Est GFR ( Amer) 48 L Glucose 163 H POC Glucose 99 Lactate 2.0 Calcium 8.4 Magnesium Total Bilirubin 1.0 AST 28 ALT 17 Alkaline Phosphatase 90 C-Reactive Protein 103.0 H Total Protein 6.3 Albumin 3.0 L Globulin 3.3 H Albumin/Globulin Ratio 0.9 L Procalcitonin 1.17 Urine Color Urine Appearance Urine pH Ur Specific York Urine Protein Urine Glucose (UA) Urine Ketones Urine Blood Urine Nitrate Urine Bilirubin Urine Urobilinogen Ur Leukocyte Esterase Urine RBC Urine WBC Ur Squamous Epith Cells Urine Bacteria Stl Aeromonas (PCR) Not detected Stl C. cayetanensis PCR Not detected Stool Rotavirus (PCR) Not detected Stl Adenov F 40/41 PCR Not detected Stool Astrovirus (PCR) Not detected Stool Campylobacter PCR Not detected Stl C.difficile Tox PCR Not detected Stool Cryptosporidium PCR Not detected Stl E.coli Shiga Tox PCR Not detected Stool E coli O157 PCR Not detected Stl Enterotoxigenic E PCR Not detected Stool EPEC (PCR) Not detected Stool EAEC (PCR) Not detected Stl E. histolytica PCR Not detected Stool Giardia Lamblia PCR Not detected Stool Salmonella PCR Not detected Stool Sapovirus (PCR) Not detected Stl P. shigelloides PCR Not detected Stl Shigella/EIEC PCR Not detected St Y.enterocolitica PCR Not detected Stool Vibrio (PCR) Not detected Stl Vibrio cholerae PCR Not detected Stl Norovirus GI/GII PCR Not detected HCV Ab MISHEL w/Rflx PCR Qn Negative HIV Ag/Ab Combo Qual Negative 04/01/24 16:29 WBC RBC Hgb Hct MCV MCH MCHC RDW Plt Count MPV Neut % (Auto) Lymph % (Auto) Jenkins % (Auto) Eos % (Auto) Baso % (Auto) Neut # (Auto) Lymph # (Auto) Jenkins # (Auto) Eos # (Auto) Baso # (Auto) Total Counted Neutrophils % (Manual) Band Neutrophils % Lymphocytes % (Manual) Monocytes % (Manual) Platelet Estimate Giant Platelets RBC Morphology VBG pH 7.41 VBG pCO2 35.7 VBG pO2 35.7 VBG HCO3 22.2 L VBG Total CO2 23.3 VBG O2 Saturation 69.7 VBG Base Excess -2.4 VBG Lactic Acid 2.0 Sodium Potassium Chloride Carbon Dioxide Anion Gap BUN Creatinine Estimated Creat Clear Estimated GFR Est GFR ( Amer) Glucose POC Glucose Lactate Calcium Magnesium Total Bilirubin AST ALT Alkaline Phosphatase C-Reactive Protein Total Protein Albumin Globulin Albumin/Globulin Ratio Procalcitonin Urine Color Urine Appearance Urine pH Ur Specific [place] Urine Protein Urine Glucose (UA) Urine Ketones Urine Blood Urine Nitrate Urine Bilirubin Urine Urobilinogen Ur Leukocyte Esterase Urine RBC Urine WBC Ur Squamous Epith Cells Urine Bacteria Stl Aeromonas (PCR) Stl C. cayetanensis PCR Stool Rotavirus (PCR) Stl Adenov F 40/41 PCR Stool Astrovirus (PCR) Stool Campylobacter PCR Stl C.difficile Tox PCR Stool Cryptosporidium PCR Stl E.coli Shiga Tox PCR Stool E coli O157 PCR Stl Enterotoxigenic E PCR Stool EPEC (PCR) Stool EAEC (PCR) Stl E. histolytica PCR Stool Giardia Lamblia PCR Stool Salmonella PCR Stool Sapovirus (PCR) Stl P. shigelloides PCR Stl Shigella/EIEC PCR St Y.enterocolitica PCR Stool Vibrio (PCR) Stl Vibrio cholerae PCR Stl Norovirus GI/GII PCR HCV Ab MISHEL w/Rflx PCR Qn HIV Ag/Ab Combo Qual DS: Diagnosis Discharge Diagnosis (1) Sepsis: Status: Acute Code(s): A41.9 - Sepsis, unspecified organism (2) UTI (urinary tract infection): Status: Acute Code(s): N39.0 - Urinary tract infection, site not specified (3) Peritonitis: Status: Acute Code(s): K65.9 - Peritonitis, unspecified (4) Gross hematuria: Status: Acute Code(s): R31.0 - Gross hematuria (5) Colovesical fistula: Status: Acute Code(s): N32.1 - Vesicointestinal fistula (6) Abdominal pain: Status: Acute Code(s): R10.9 - Unspecified abdominal pain (7) Diarrhea: Status: Acute Code(s): R19.7 - Diarrhea, unspecified (8) Anemia: Status: Chronic Code(s): D64.9 - Anemia, unspecified Qualifiers: Anemia type: due to chronic kidney disease Chronic kidney disease stage: stage 3 (moderate) Qualified Code(s): N18.3 - Chronic kidney disease, stage 3 (moderate); D63.1 - Anemia in chronic kidney disease (9) CKD stage 3b, GFR 30-44 ml/min: Status: Chronic Code(s): N18.32 - Chronic kidney disease, stage 3b Meds Home Medications and Allergies Home Medications ?Medication ?Instructions ?Recorded ?Confirmed ?Type carvedilol 6.25 mg tablet 6.25 mg PO BID Hypertension 90 11/04/23 04/01/24 Rx days #180 tabs lisinopril 20 mg tablet 20 mg PO DAILY #30 tabs 01/06/24 04/01/24 Rx IV with Additives 75 mls/hr IV 04/02/24 Rx Pha Request-Vanco Dosing 1 ea Not Applicable CONSULT 04/02/24 Rx [Vancomycin Consult Request] PHARMACY ##0 acetaminophen 325 mg tablet 650 mg (2 x 325 mg) PO Q4HP PRN 04/02/24 Rx Fever Or Mild Pain (1-3) #0 tabs morphine 2 mg/mL intravenous 2 mg IV Q2HP PRN Severe Pain 04/02/24 Rx syringe (7-10) #0 mL piperacillin-tazobactam 3.375 gram 3.375 g IV Q8H #0 ea 04/02/24 Rx intravenous solution vancomycin 1.5 gram/300 mL in 1.5 g (300 mL) IV Q36H #0 mL 04/02/24 Rx diluent combination IV piggyback New Prescriptions to Start Prescriptions: IV with Additives 0.9 % Sodium Chloride 1000ML [Sod Chlor 0.9% 1000mL Bag] 1,000 ml 75 mls/hr IV Allergies Allergy/AdvReac Type Severity Reaction Status Date / Time No Known Allergies Allergy Verified 12/30/24 11:13 Discharge Plan Disposition Patient Disposition: Xfer Short-Term Hosp Condition: Fair Discharge Order Discharge Orders: Discharge Order (Routine); Ordered 04/02/24 Ordered By: Mike Alonso Follow up Plan Prescriptions/Medication Reconciliation: New acetaminophen 325 mg Tablet 650 mg PO Q4HP PRN (Reason: Fever Or Mild Pain (1-3)) Qty: 0 0RF piperacillin-tazobactam 3.375 gram Recon Soln 3.375 g IV Q8H Qty: 0 0RF morphine 2 mg/mL Syringe 2 mg IV Q2HP PRN (Reason: Severe Pain (7-10)) Qty: 0 0RF vancomycin-diluent combo no.1 1.5 gram/300 mL Piggyback 1.5 g IV Q36H Qty: 0 0RF IV with Additives 0.9 % Sodium Chloride 1000ML [Sod Chlor 0.9% 1000mL Bag] 1000 ML 75 mls/hr IV Ordered By: Mike Alonso MD Last Taken: 04/02/24 00:00 75 mls/hr Pha Request-Vanco Dosing [Vancomycin Consult Request] 1 ea Not Applicable CONSULT PHARMACY Qty: 0 0RF Held carvedilol 6.25 mg tablet 6.25 mg PO BID 90 Days Qty: 180 0RF Hold Instructions: Due to sepsis lisinopril 20 mg tablet 20 mg PO DAILY Qty: 30 3RF Hold Instructions: Due to sepsis Problem Reconciliation Problems Reviewed?: Yes Patient Discharge Instructions ACTIVITY: Limited activity DIET: NPO Patient Instructions: DI for Abdominal Pain-Adult, DI for Rectovaginal Fistula, Rectovaginal Fistula, DI for Sepsis -- Adult Print Language: Citizen Of [place] Providers Primary Care Provider: Maikel Ayers Admit Provider: Mike Alonso Attending Provider: Mike Alonso
[2024-04-02] MEDS: VANCOMYCIN/WATER FOR INJ (PEG) 1.5 GM/300 ML PIGGYBACK IV (15:29)
--- NOTE | 2024-04-02 15:48 | PC.NURSE ---
Pt is currently resting in bed. Has been up to the chair most of shift. Has ambulated with cane and assist x1 to BR. Tolerated well. Pt has voided via BR, BSC and incontinent brief. Urine noted to have odor and brown resembling stool. VS have remain stable. Pt is NSR on telemetry. Remains on RA. No fever this shift. She is A&O x4. Call light within reach.
[2024-04-02 15:49] LABS: POC Glucose,Bedside 102 (70-110)
--- NOTE | 2024-04-02 18:34 | PC.NURSE ---
Pt has bed at [facility], 6th floor, room 136. Accepting physicians: [facility]. Report called to Saima. [phone].
--- NOTE | 2024-04-02 18:44 | PC.NURSE ---
EMS notified of pt need for transfer
--- NOTE | 2024-04-02 19:13 | PC.NURSE ---
PT LEFT FLOOR WITH EMS AT THIS TIME
--- NOTE | 2024-04-04 05:17 | PC.NURSE ---
+ blood culture report given to Glenna SINCLAIR at where patient is an inpatient
--- NOTE | 2024-04-04 05:19 | EXP.EVENT.NO ---
Around 0515 ED charge nurse, Kiera, was informed of positive blood culture on this patient. She informed me and I reviewed the patient's chart including the discharge documentation from 04/02/[address] Alonso. This demonstrates that the patient was transferred to for concerns of colovesical fistula. She had been treated with broad-spectrum antibiotics while admitted prior to transfer. With this resulting blood culture, I asked ED charge nurse to reach out to and discuss this with the patient's care team. She was able to speak with the patient's bedside RN, Glenna. Glenna took down the information regarding the patient's blood culture with gram-positive clusters and was going to update the providers.
== END 2024-04-02 19:14 | disposition short-term general hospital (02) ==
LOC: ER 16:30 → 2ND 21:38
PROVIDERS: Nurse Practitioner Family; Admitting Provider Internal Medicine Adolescent Medicine; Emergency Provider Emergency Medicine; PCP Family Medicine; Visit Provider Internal Medicine Adolescent Medicine
DX: A41.2 Sepsis due to unspecified staphylococcus (principal); N39.0 Urinary tract infection, site not specified; E11.22 Type 2 diabetes mellitus with diabetic chronic kidney disease; R31.0 Gross hematuria; N32.1 Vesicointestinal fistula; R19.7 Diarrhea, unspecified; D63.1 Anemia in chronic kidney disease; N18.32 Chronic kidney disease, stage 3b; B95.2 Enterococcus as the cause of diseases classified elsewhere; E66.9 Obesity, unspecified; Z68.27 Body mass index [BMI] 27.0-27.9, adult; Z79.899 Other long term (current) drug therapy; Z16.29 Resistance to other single specified antibiotic; Z85.3 Personal history of malignant neoplasm of breast; Z90.49 Acquired absence of other specified parts of digestive tract
CPT/HCPCS: 74177; 80048; 80053; 81001; 82803; 82962; 83605; 83735; 84145; 85007; 85025; 86140; 86803; 87040; 87045; 87077; 87086; 87088; 87186; 87389; 87507; 99285; G0378; J2270; J2405; J2543; J3372; J3475; J7030; Q9967

== ENCOUNTER 2024-04-06 12:20 | Emergency (ER) | payer MEDICARE, SELFPAY ==
[2024-04-06] VITALS (12 sets, daily range): BP systolic 128–166; BP diastolic 68–92; PULSE 70–102; RESP 11–20; TEMP 36.7–36.8; O2SAT 95–98; BMI 29.7
--- NOTE | 2024-04-06 12:20 | PC.NURSE ---
Pt arrived into room via EMS stretcher. Receiving report from [facility]. Pt brought in d/t unable to care for herself and discharge from hospital yesterday .
--- NOTE | 2024-04-06 12:26 | ECG_ITS ---
APPROVED REPORT Exam: Resting ECG HR:102 bpm ECG Measurements Heart Rate 102 AXES MN 175 P 63 QRSd 100 QRS -10 QT 346 T 35 QTc 405 Conclusion SINUS TACHYCARDIA NONSPECIFIC T-WAVE ABNORMALITY ABNORMAL RHYTHM ECG UNCONFIRMED REPORT Electronically signed by : Claire Metzger, 04/08/2024 07:09:03
--- NOTE | 2024-04-06 12:59 | PC.NURSE ---
Rounded on the PT. The PT voices that she does not need anything at this time. Call light is within reach of the PT.
--- NOTE | 2024-04-06 13:12 | HMH.EDGENADL ---
Discharge Plan Disposition Patient Disposition: Xfer SNF Prescriptions Prescriptions: No Action carvedilol 6.25 mg tablet 6.25 mg PO BID 90 Days Qty: 180 0RF lisinopril 20 mg tablet 20 mg PO DAILY Qty: 30 3RF acetaminophen 325 mg Tablet 650 mg PO Q4HP PRN (Reason: Fever Or Mild Pain (1-3)) Qty: 0 0RF piperacillin-tazobactam 3.375 gram Recon Soln 3.375 g IV Q8H Qty: 0 0RF morphine 2 mg/mL Syringe 2 mg IV Q2HP PRN (Reason: Severe Pain (7-10)) Qty: 0 0RF vancomycin-diluent combo no.1 1.5 gram/300 mL Piggyback 1.5 g IV Q36H Qty: 0 0RF IV with Additives 0.9 % Sodium Chloride 1000ML [Sod Chlor 0.9% 1000mL Bag] 1000 ML 75 mls/hr IV Ordered By: Mike Alonso MD Last Taken: Unknown Pha Request-Vanco Dosing [Vancomycin Consult Request] 1 ea Not Applicable CONSULT PHARMACY Qty: 0 0RF Referrals Follow up/Referrals: Maikel Ayers MD [Primary Care Provider] - See instructions Clinical Impressions Clinical Impression: Failure to thrive Instructions Patient Instructions: [id number]-Adult Print Language Print Language: Tanzanian Discharge ED Provider: Yuriy Aponte General Adult HPI <Claire Metzger MD - Last Filed: 04/06/24 15:49> General Chief complaint: Weakness Stated complaint: weakness Time Seen by Provider: 04/06/24 12:42 Mode of Arrival: EMS Source of Information: Patient and EMS Limitations: Physical Limitations Description of Symptoms (Recalled from ER Triage Doc. by RN): pt brought in today she is weak and unable to take care of herself, released [facility] they had no medical reason to keep her and she is suppose to have outpatient procedure on 04/13/24 at to close up the hole in her colon. pt is alox4 and vital are stable upon triage History of Present Illness HPI narrative: Patient is a 78-year-old female presenting with failure to thrive. Patient states she was hospitalized at and discharged yesterday. Patient was admitted for a colovesicular fistula that did not require surgical intervention during admission. Patient was discharged to her house. Patient presented today because she states she is unable to care for herself. She states that due to this fistula, she has bowel and bladder incontinence when she stands up. She is able to tolerate food without difficulty and has had no trauma since discharge. Patient states she has follow-up on April 13 at . Related Data Previous Rx's ?Medication ?Instructions ?Recorded carvedilol 6.25 mg tablet 6.25 mg PO BID Hypertension 90 11/04/23 days #180 tabs lisinopril 20 mg tablet 20 mg PO DAILY #30 tabs 01/06/24 IV with Additives 75 mls/hr IV 04/02/24 Pha Request-Vanco Dosing 1 ea Not Applicable CONSULT 04/02/24 [Vancomycin Consult Request] PHARMACY ##0 acetaminophen 325 mg tablet 650 mg (2 x 325 mg) PO Q4HP PRN 04/02/24 Fever Or Mild Pain (1-3) #0 tabs morphine 2 mg/mL intravenous 2 mg IV Q2HP PRN Severe Pain 04/02/24 syringe (7-10) #0 mL piperacillin-tazobactam 3.375 gram 3.375 g IV Q8H #0 ea 04/02/24 intravenous solution vancomycin 1.5 gram/300 mL in 1.5 g (300 mL) IV Q36H #0 mL 04/02/24 diluent combination IV piggyback Allergies Allergy/AdvReac Type Severity Reaction Status Date / Time No Known Allergies Allergy Verified 03/07/24 11:13 [facility] <Claire Metzger MD - Last Filed: 04/06/24 15:49> [facility] Disclaimer: The information contained in this section may have been updated after the patient was seen, as this information can be updated by other users. Medical History Breast cancer Hyperglycemia due to diabetes mellitus Left hand paresthesia Gangrenous cholecystitis Hypertension Diabetes mellitus Obesity Pancreatitis Heart murmur, systolic Renal insufficiency Anemia Cholelithiasis Surgical History History of bladder surgery History of cholecystectomy H/O breast biopsy H/O lumpectomy History of total abdominal hysterectomy and bilateral salpingo-oophorectomy Family History Father Stroke Mother CHF (congestive heart failure) Social History Smoking Status: Never smoker second hand exposure: Yes alcohol intake: never substance use type: denies use current occupational status: retired Travel in the last 8 weeks: None household members: none housing: house current occupational exposures/hazards: No caffeine: Yes Other Medical History Have you received the Flu Vaccine for this season: No Have you received the Pneumonia Vaccine: No <Claire Metzger MD - Last Filed: 04/06/24 15:49> ROS Obtained: Yes All systems reviewed & no additional complaints except as documented Physical Exam <Claire Metzger MD - Last Filed: 04/06/24 15:49> General General appearance: alert and in no apparent distress Head Head exam: atraumatic, normocephalic and normal inspection Eye Eye exam: Present normal appearance, PERRL and EOMI ENT ENT exam: Present normal exam, normal oropharynx, mucous membranes moist, TM's normal bilaterally and normal external ear exam Neck Neck exam: Present normal inspection, full ROM and trachea midline; Absent meningismus or lymphadenopathy Chest Chest inspection: Present normal inspection and symmetric chest wall rise; Absent tenderness Respiratory Respiratory exam: Present normal lung sounds bilaterally; Absent respiratory distress Cardiovascular Cardiovascular exam: Present regular rate, normal rhythm and systolic murmur; Absent JVD Abdominal Exam Abdominal exam: Present soft, tenderness and normal bowel sounds; Absent distention or guarding Abdominal tenderness: Present suprapubic (mild) Extremities Exam Extremities exam: Present normal inspection, full ROM and normal capillary refill; Absent calf tenderness Back Exam Back exam: Present normal inspection; Absent tenderness Neurological Exam Neurological exam: Present alert and oriented X3 Psychiatric Psychiatric exam: Present normal affect and normal mood Skin Skin exam: Present warm, dry, intact and normal color Lymphatic Lymphatic Findings: no adenopathy Medical Decision Making <Claire Metzger MD - Last Filed: 04/06/24 15:49> Medical Records Medical records reviewed: Yes I reviewed the patient's medical records. Screening: Per USPSTF and CDC recommendations, given the prevalence of disease in our region, it is our hospital?s policy to screen for HIV and viral Hepatitis for all patients aged 18 and over and those with ongoing risk factors. Lobo Inquiry Pt receiving controlled substance: No Vital Signs: 04/06/24 12:20 04/06/24 13:00 04/06/24 13:33 Temperature 98.1 F Temperature Source Oral Pulse Rate 97 H Pulse Rate [Left Radial] 102 H Respiratory Rate 20 12 11 L Blood Pressure 164/89 H 153/81 H Blood Pressure [Right Arm] 144/83 H Blood Pressure Mean [Right Arm] 103 02 Sat by Pulse Oximetry 97 96 97 Oxygen Delivery Method Room Air Room Air Room Air 04/06/24 14:00 04/06/24 14:30 04/06/24 15:00 Temperature Temperature Source Pulse Rate 95 H 98 H 101 H Pulse Rate [Left Radial] Respiratory Rate 13 12 16 Blood Pressure 156/92 H 166/87 H 164/91 H Blood Pressure [Right Arm] Blood Pressure Mean [Right Arm] 02 Sat by Pulse Oximetry 95 98 97 Oxygen Delivery Method Room Air Room Air Room Air 04/06/24 15:31 04/06/24 16:00 04/06/24 17:00 Temperature Temperature Source Pulse Rate 91 H 91 H 91 H Pulse Rate [Left Radial] Respiratory Rate 17 15 14 Blood Pressure 150/80 H 160/83 H 144/78 H Blood Pressure [Right Arm] Blood Pressure Mean [Right Arm] 02 Sat by Pulse Oximetry 96 97 95 Oxygen Delivery Method Room Air Room Air Room Air 04/06/24 17:30 04/06/24 17:53 04/06/24 19:01 Temperature 98.2 F 98.2 F Temperature Source Pulse Rate 95 H 95 H 70 Pulse Rate [Left Radial] Respiratory Rate 13 20 20 Blood Pressure 129/68 128/79 135/79 Blood Pressure [Right Arm] Blood Pressure Mean [Right Arm] 02 Sat by Pulse Oximetry 97 Oxygen Delivery Method Room Air Room Air Room Air ECG Data Tracing #1: Sinus tachycardia with a rate of 102, no QTc prolongation, no significant ST elevations or depressions Medical Decision Narrative: In summary, this is a 78-year-old female presenting with inability to care for herself. Patient has an unfortunate history of a colovesicular fistula that has intermittently caused problems. Patient was admitted at from 04/02 through 04/05. I was able to review the chart from the patient's admission as well as the discharge summary from yesterday. Patient was evaluated by colorectal surgery and urology who recommended outpatient management and further investigation with colonoscopy. Patient has a follow-up on 04/13. Patient was also discharged with twice daily cefadroxil. Case management note documented no need for their assistance. Patient called EMS today as she is having difficulty performing her ADLs at home secondary to bowel and bladder incontinence. Patient denies new trauma, fevers, chills. Documentation from yesterday noted mild suprapubic tenderness which is consistent with patient's exam today. At this time, laboratory and imaging investigation is not indicated based on patient's appearance and documentation from yesterday without new complaints. I discussed the patient with our case management who plan to have her evaluated by PT/OT and determine appropriate placement. PT OT evaluated the patient at bedside and are currently recommending placement. Patient required significant assistance to get cleaned up and minimal assist for movement in the bed as well as standing. Our case management was notified and working with [employer] to determine appropriate placement for the patient. At this time, patient signed out to oncoming provider, Dr. Aponte while awaiting placement. <Yuriy Aponte MD - Last Filed: 04/07/24 04:31> Vital Signs: 04/06/24 12:20 04/06/24 13:00 04/06/24 13:33 Temperature 98.1 F Temperature Source Oral Pulse Rate 97 H Pulse Rate [Left Radial] 102 H Respiratory Rate 20 12 11 L Blood Pressure 164/89 H 153/81 H Blood Pressure [Right Arm] 144/83 H Blood Pressure Mean [Right Arm] 103 02 Sat by Pulse Oximetry 97 96 97 Oxygen Delivery Method Room Air Room Air Room Air 04/06/24 14:00 04/06/24 14:30 04/06/24 15:00 Temperature Temperature Source Pulse Rate 95 H 98 H 101 H Pulse Rate [Left Radial] Respiratory Rate 13 12 16 Blood Pressure 156/92 H 166/87 H 164/91 H Blood Pressure [Right Arm] Blood Pressure Mean [Right Arm] 02 Sat by Pulse Oximetry 95 98 97 Oxygen Delivery Method Room Air Room Air Room Air 04/06/24 15:31 04/06/24 16:00 04/06/24 17:00 Temperature Temperature Source Pulse Rate 91 H 91 H 91 H Pulse Rate [Left Radial] Respiratory Rate 17 15 14 Blood Pressure 150/80 H 160/83 H 144/78 H Blood Pressure [Right Arm] Blood Pressure Mean [Right Arm] 02 Sat by Pulse Oximetry 96 97 95 Oxygen Delivery Method Room Air Room Air Room Air 04/06/24 17:30 04/06/24 17:53 04/06/24 19:01 Temperature 98.2 F 98.2 F Temperature Source Pulse Rate 95 H 95 H 70 Pulse Rate [Left Radial] Respiratory Rate 13 20 20 Blood Pressure 129/68 128/79 135/79 Blood Pressure [Right Arm] Blood Pressure Mean [Right Arm] 02 Sat by Pulse Oximetry 97 Oxygen Delivery Method Room Air Room Air Room Air Medical Decision Narrative: In summary, this is a 78-year-old female presenting with inability to care for herself. Patient has an unfortunate history of a colovesicular fistula that has intermittently caused problems. Patient was admitted at from 04/02 through 04/05. I was able to review the chart from the patient's admission as well as the discharge summary from yesterday. Patient was evaluated by colorectal surgery and urology who recommended outpatient management and further investigation with colonoscopy. Patient has a follow-up on 04/13. Patient was also discharged with twice daily cefadroxil. Case management note documented no need for their assistance. Patient called EMS today as she is having difficulty performing her ADLs at home secondary to bowel and bladder incontinence. Patient denies new trauma, fevers, chills. Documentation from yesterday noted mild suprapubic tenderness which is consistent with patient's exam today. At this time, laboratory and imaging investigation is not indicated based on patient's appearance and documentation from yesterday without new complaints. I discussed the patient with our case management who plan to have her evaluated by PT/OT and determine appropriate placement. PT OT evaluated the patient at bedside and are currently recommending placement. Patient required significant assistance to get cleaned up and minimal assist for movement in the bed as well as standing. Our case management was notified and working with [facility] to determine appropriate placement for the patient. At this time, patient signed out to oncoming provider, Dr. Aponte while awaiting placement. Yuriy Aponte MD Per OT/PT recommendations, they recommended placement, however patient will require admission given we are unable to get her placement at this time per case management pending approval by [facility]. Patient also evaluated by physical therapy and they also recommended placement. Discussed patient's case with Dr. Egan and they agreed to admit the patient. However, shortly after discussing admission, patient was accepted for approval to [facility] for placement. Given this, she was not admitted to the hospital and [facility] Critical Care <Claire Metzger MD - Last Filed: 04/06/24 15:49> Critical Care Time Critical Care Time: No
--- NOTE | 2024-04-06 13:13 | PC.NURSE ---
PT-OT NOTIFIED OF ORDER
--- NOTE | 2024-04-06 13:20 | PC.NURSE ---
1320 Case management to bedside.
--- NOTE | 2024-04-06 13:42 | SW/DCPLANNER ---
Addendum entered by Julieth West RN 04/06/24 18:25: patient will be going to [facility] rehab not [facility]. number for report is below. Addendum entered by Julieth West RN 04/06/24 17:48: After many discussions with Glenna from [facility] and sending information from PT/OT [place] patient was approved for rehab at [facility] ref #[id number]. Spoke with Clare at [facility] and they have verified authorization and state they can take patient tonight. Spoke with son and with ER staff. Patient will require ambulance transfer. Due to not knowing when ambulance would be available for transport patient was admitted to the floor. Number for report is [phone] and fax is [phone]. Addendum entered by Norma Reynolds 04/06/24 14:04: Clare w/ [facility] is willing to accept this patient pending PT/OT evaluation and precert. Original Note: I was contact by ED staff (Kenzie) to speak w/ this patient regarding discharge planning. PT/OT has been ordered to evaluate patient in the ED. Patient stated that she currently resides at home w/ her son in [place]. Patient stated that she was discharged home from yesterday and is unable to currently care for herself at home. Patient is interested in SNF level of care. Patient stated that she is agreeable to [facility] or [facility]. Once PT/OT evaluations are completed I will fax patient information. Per ER MD patient does not currently have a medical reason to be admitted. I will continue to follow up.
--- NOTE | 2024-04-06 13:53 | PC.NURSE ---
Rounded on the PT. The PT voices that she does not need anything at this time. Call light is within reach of the PT.
--- NOTE | 2024-04-06 14:51 | PC.NURSE ---
pt/ot at bedside for evaluations
--- NOTE | 2024-04-06 15:01 | PC.NURSE ---
PT/OT done with therapy eval and they recommend placement, care management made aware, ordered regular tray for patient
--- NOTE | 2024-04-06 15:09 | HMH.OTEV ---
OT Inpatient Evaluation Rehab OT IP Evaluation Start: 04/06/24 13:12 Freq: ONCE Status: Active Protocol: Document 04/06/24 15:02 [facility] (Rec: 04/06/24 15:09 [facility] [id number]) Rehab OT IP Assessment Subjective History Pt oriented x 3 on arrival. Pt agreeable to engage in therapy evaluation. Pt came to ER today after returning home from recent hospitalization with continued weakness and inability to care for herself. History and physical: Patient is a 78-year-old female presenting with failure to thrive. Patient states she was hospitalized at and discharged yesterday. Patient was admitted for a colovesicular fistula that did not require surgical intervention during admission. Patient was discharged to her house. Patient presented today because she states she is unable to care for herself. She states that due to this fistula, she has bowel and bladder incontinence when she stands up. She is able to tolerate food without difficulty and has had no trauma since discharge. Patient states she has follow- up on April 13 at . Subjective I just can't do it. Pt reports she recently returned home from hospital from 4 day stay. Pt claims since returning home she has progressively become weaker and unable to care for her self. Pt suffers from incontinence and right now is unable to complete toileting hygiene independently. During evaluation, pt required min assistance for bed mobility for rolling and supine to sit. Pt required maximal assistance for toileting hygiene and lower body dressing to doff and don new brief after incontinence. Pt was able to stand from eob with min assist and completed 3 steps with min/mod assist. Min assist required to go from sitting to supine in bed. Objective Patient Orientation Person,Place,Birthday Right Upper Extremity Gross ROM WFL Left Upper Extremity Gross ROM WFL Bed Mobility bed mobility-scooting,bed mobility - supine/sit,bed mobility - rolling Assist Level Minimal x 1 (25% assist) Transfer Training Sit/Stand/Step Transfer Assist Level Minimal x 1 (25% assist) Lower Body Dressing Ability Maximum Assistance Performing Toilet Hygiene Ability Maximum Assistance Rehab OT IP prob,goals,plan Problems Date of Evaluation: 04/06/24 OT IP Problems Bed Mobility,Transfers,Balance ,Self care,Safety Rehab Potential Rehab Potential Good Equipment Needs Assistive Devices Rolling / Wheeled Walker Plan OT intervention Plan Bed Mobility,Transfers,Balance ,Self care,Safety,Therapeutic Exercise OT Plan Frequency Daily Duration LOS Discharge Goals Bed Mobility Ability Assistance x1 Sit to Stand Chair Transfer Ability Contact Guard/Hand Hold, Minimal x 1 (25% assist) Chair Transfer Ability Contact Guard/Hand Hold, Minimal x 1 (25% assist) Chair Transfer Technique Sit to/from Ambulatory Lower Body Dressing Ability Maximum Assistance Upper Body Dressing Ability Minimal Assistance Performing Toilet Hygiene Ability Maximum Assistance Overall Commode/Toilet Transfer Ability Maximum Assistance Commode/Toilet Transfer Technique Sit to/from Ambulatory Discharge Plan OT Discharge Plan Pt will continue to be seen for OT services while at [facility]. Pt would benefit most from short term rehab at [facility] at this time. Pt's son does live with her, but he is unable to provide 24/7 assistance at this time. Continued skilled therapy at [facility] would be most beneficial in order to improve strength, endurance, ADL independence, and functional transfers to reach PLOF. Eval Complexity Eval Charge Codes 17825 - Moderate Complexity PHYSICIAN CERTIFICATION: I certify the specified therapy services for Marianne Baca are required, authorized, and reviewed every 30 days.
--- NOTE | 2024-04-06 15:49 | PC.NURSE ---
spoke with care management and they are still working on placement, hourly rounding completed, pt has finished food tray and is resting comfortably
--- NOTE | 2024-04-06 16:12 | PC.NURSE ---
per case management pt need PT eval and then can be palced, PT unable to do eval today so patient to be admitted to hospital for eval tmrw. evidently previously eval was done by OT only
--- NOTE | 2024-04-06 16:16 | PC.NURSE ---
Rounded on the PT. The PT voices that she does not need anything at this time. Call light is within reach of the PT. Son is present at the bedside.
--- NOTE | 2024-04-06 16:44 | PC.NURSE ---
PT at bedside and states she will need PT placement. Dr Aponte aware
--- NOTE | 2024-04-06 16:59 | HMH.PTEV ---
Physical Therapy Evaluation Rehab PT IP Evaluation Start: 04/06/24 13:12 Freq: ONCE Status: Active Protocol: Document 04/06/24 16:50 [facility] (Rec: 04/06/24 16:58 PHORMARIELOS [id number]) Subjective/History History History 78-year-old female presenting with failure to thrive. Patient states she was hospitalized at and discharged yesterday. Patient was admitted for a colovesicular fistula that did not require surgical intervention during admission. Patient was discharged to her house. Patient presented today because she states she is unable to care for herself. She states that due to this fistula, she has bowel and bladder incontinence when she stands up. She reports she lives with her son, 1 MANUEL the home, and she is generally able to perform household ambulation with straight cane independently. She and her son report she has been steadily declining her ambulation distance and overall activity level for the past 2 yrs. Subjective Subjective Currently she reports no c/o pain, but has a general sense of weakness. She reports for several months she has suffered from a feeling of malaise and severe weakness whenever she sits upright for more than a few minutes and she is fearful of falling. Rehab PT IP Eval Objective Appearance Patient Behavior Appropriate Patient Orientation Person,Place,Time Difficulty following instructions none Speech Pattern Clear Ambulation Patient Able to Ambulate No Balance Ability to Arise Able, uses arms to help Sitting Balance Steady, safe Standing Balance Steady, wide stance Dynamic Sitting Balance Ability Fair Dynamic Standing Balance Ability Poor Transfers Bed Transfer Ability Minimal x 1 (25% assist) Chair Transfer Ability Minimal x 1 (25% assist) Sit to Stand Bed Transfer Ability Minimal x 1 (25% assist) Sit to Stand Chair Transfer Ability Minimal x 1 (25% assist) Rehab PT IP prob,goals,plan Problems Date of Evaluation: 04/06/24 PT IP Problems Bed Mobility,Transfers,Gait, Self care Rehab Potential Rehab Potential Good Plan PT Intervention Plan Bed Mobility,Transfers,Gait, Self care,Therapeutic Exercise PT Plan Frequency Daily Duration LOS Discharge Goals Bed Transfer Ability Contact Guard/Hand Hold Sit to Stand Chair Transfer Ability Contact Guard/Hand Hold Ambulation Assistive Device Rolling Walker Ambulation Distance (feet) 15 Discharge Plan PT Discharge Plan Pt is currently most appropriate for rehab placement due to limited mobility and inability for self care at home. Skilled therapy is indicated to improve strength, improve transfer ability, and improve ambulation in order to return pt to PLOF. Eval Complexity Eval Charge Codes 43606 - High Complexity PHYSICIAN CERTIFICATION: I certify the specified therapy services for Marianne Baca are required, authorized, and reviewed every 30 days.
--- NOTE | 2024-04-06 17:40 | PC.NURSE ---
Rounded on the PT. The PT voices that she does not need anything at this time. Call light is within reach of the PT.
--- NOTE | 2024-04-06 17:54 | PC.NURSE ---
gave report to loli hernández rn on 2nd floor and answered all questions, pt does not have an IV and floor nurse okayed that
--- NOTE | 2024-04-06 18:04 | PC.NURSE ---
CALLED PT SON AND UPDATED HIM THAT THE PATIENT WILL NOW BE GOING TO PLACEMENT FROM THE ER INSTEAD OF ADMITTED. I INFORMED HIM OF THE FACILITY NAME AND NUMBER
--- NOTE | 2024-04-06 18:15 | PC.NURSE ---
ATTEMPTED TO CALL REPORT TO [facility] AND THEY INFORMED ME THEY NEVER HEARD OF THE PATIENT. SPOKE ANOOP MAURICIO IN CARE MANAGEMENT TO CONFIRM PLACEMENT LOCATION. SHE STATED THE PT IS ACTUALLY GOING TO [facility]. I CALLED PT SON TO UPDATE HIM ON THE CHANGE IN LOCATION AT THIS TIME
--- NOTE | 2024-04-06 18:33 | PC.NURSE ---
Called report to Karen nieto at [facility]
--- NOTE | 2024-04-06 18:43 | PC.NURSE ---
called [facility] for transport to [facility]
--- NOTE | 2024-04-06 19:07 | PC.NURSE ---
pt changed and placed in new brief prior to transfer to group home
== END 2024-04-06 19:06 ==
LOC: ER 17:02 → 2ND 17:47
PROVIDERS: Emergency Provider Student in an Organized Health Care Education/Training Program; PCP Family Medicine
DX: R62.7 Adult failure to thrive (principal); R53.1 Weakness; N39.46 Mixed incontinence
CPT/HCPCS: 93005; 99283

== ENCOUNTER 2024-04-16 16:50 | Emergency (ER) | payer MEDICARE, SELFPAY ==
[2024-04-16] VITALS (11 sets, daily range): BP systolic 102–129; BP diastolic 50–69; PULSE 84–91; RESP 16–20; TEMP 36.6–36.9; O2SAT 96–98; BMI 27.3
--- NOTE | 2024-04-16 17:00 | CT_ITS ---
PROCEDURE INFORMATION: Exam: CT Abdomen And Pelvis With Contrast Exam date and time: 04/16/2024 6:14 PM Age: 78 years old Clinical indication: Abdominal pain TECHNIQUE: Imaging protocol: Computed tomography of the abdomen and pelvis with contrast. Radiation optimization: All CT scans at this facility use at least one of these dose optimization techniques: automated exposure control; mA and/or kV adjustment per patient size (includes targeted exams where dose is matched to clinical indication); or iterative reconstruction. Contrast material: ISOVUE; Contrast volume: 75 ml; Contrast route: IV; COMPARISON: 1. CT ABDOMEN PELVIS W CON 04/01/2024 5:[address] ABDOMEN PELVIS WO CON 01/28/2024 10:[address] abdomen pelvis wo con 06/25/2018 12:25 AM FINDINGS: Lungs: Scattered areas of bronchial wall thickening which are likely chronic inflammatory. A few areas of subpleural reticulation are noted, nonspecific. Liver: There is early morphologic changes of cirrhosis with volume redistribution. No concerning focal liver lesion. Gallbladder and biliary ducts: The gallbladder demonstrates a normal configuration without evidence for cholecystitis or cholelithiasis. There is dilation of the intrahepatic biliary ducts most likely reflecting post cholecystectomy effect. Pancreas: There is fatty replacement of the pancreas. Spleen: Normal. Adrenal glands: The adrenal glands appear normal. Kidneys and ureters: There are no soft tissue renal masses or hydronephrosis. Stomach and bowel: There is upstream dilation of bowel loops extending to the pelvis where there is suspected to be obstruction (image 84 series 3). There is a interloop fluid collection in the right lower quadrant measuring 2.5 x 3.8 cm. There is fluid distension of the colon which could be seen in a diarrheal state. Appendix: No evidence of appendicitis. Intraperitoneal space: There is a small volume of free fluid in the pelvis. Small volume ascites is noted. Vasculature: There is atherosclerotic disease of the visualized aorta and its major branch vessels. Lymph nodes: No lymphadenopathy. Urinary bladder: Unremarkable as visualized. Reproductive: No acute process. Bones/joints: There is diffuse degenerative disease of the visualized osseous structures. 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 IMPRESSION: 1. 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 2. Small bowel obstruction and possible large bowel obstruction related to infiltrative pelvic soft tissue. No evidence for perforation at the time of imaging. 3. Right lower quadrant interloop fluid collection may reflect loculated ascites but an abscess can not be excluded.
--- NOTE | 2024-04-16 17:13 | ED_ITS ---
<Statement entered by David Richard MD - 04/17/24 00:35> CT demonstrates worsening inflammatory processes and possible small versus large bowel obstruction. Considered NG tube, but was not recommended by colorectal surgery service at at this time. Consulted with colorectal surgery Dr. Noonan, interactive discussion, ultimately they agreed to admit the patient direct admit to . Will be transferred via ACLS in hemodynamically stable condition. I was consulted by the MELANIE, and we discussed the complexity of problems being addressed. I approved the treatment and management plan for this patient's care in the emergency department, thus performing a substantial portion of the medical decision making. David Richard MD Discharge Plan Disposition Patient Disposition: Xfer Other Prescriptions Prescriptions: No Action carvedilol 6.25 mg tablet 6.25 mg PO BID 90 Days Qty: 180 0RF lisinopril 20 mg tablet 20 mg PO DAILY Qty: 30 3RF acetaminophen 325 mg Tablet 650 mg PO Q4HP PRN (Reason: Fever Or Mild Pain (1-3)) Qty: 0 0RF piperacillin-tazobactam 3.375 gram Recon Soln 3.375 g IV Q8H Qty: 0 0RF morphine 2 mg/mL Syringe 2 mg IV Q2HP PRN (Reason: Severe Pain (7-10)) Qty: 0 0RF vancomycin-diluent combo no.1 1.5 gram/300 mL Piggyback 1.5 g IV Q36H Qty: 0 0RF IV with Additives 0.9 % Sodium Chloride 1000ML [Sod Chlor 0.9% 1000mL Bag] 1000 ML 75 mls/hr IV Ordered By: Mike Alonso MD Last Taken: Unknown Pha Request-Vanco Dosing [Vancomycin Consult Request] 1 ea Not Applicable CONSULT PHARMACY Qty: 0 0RF Stand Alone Forms Stand Alone Forms: Transfer Record - ED Instructions Patient Instructions: DI for Acute Abdominal Pain Print Language Print Language: Salvadorean Discharge ED Provider: David Richard General Adult HPI General Chief complaint: Abdominal Pain Stated complaint: LLQ ABD pain/nausea/vomiting Time Seen by Provider: 04/16/24 16:54 Mode of Arrival: EMS Source of Information: Patient Limitations: No Limitations Description of Symptoms (Recalled from ER Triage Doc. by RN): Patient complaint of left lower abdomen pain that started this morning. History of Present Illness HPI narrative: 78-year-old female arrives from skilled nursing for left-sided abdominal pain. 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 She states that she has a colonoscopy scheduled on the of this month and surgery scheduled for May [address] Hagen to fix this fistula. She tells me that she started having a fever last night that resolved during the night. She has had abdominal pain on the left side that started this morning. She has not been able to tolerate food and fluids throughout the day. She is spitting up which she is eating and drinking but not vomiting. States that she has had no headache, no chest pain no other symptoms. She spent 4 days at at her last visit to before she went to the skilled nursing. Related Data Previous Rx's ?Medication ?Instructions ?Recorded carvedilol 6.25 mg tablet 6.25 mg PO BID Hypertension 90 11/04/23 days #180 tabs lisinopril 20 mg tablet 20 mg PO DAILY #30 tabs 01/06/24 IV with Additives 75 mls/hr IV 04/02/24 Pha Request-Vanco Dosing 1 ea Not Applicable CONSULT 04/02/24 [Vancomycin Consult Request] PHARMACY ##0 acetaminophen 325 mg tablet 650 mg (2 x 325 mg) PO Q4HP PRN 04/02/24 Fever Or Mild Pain (1-3) #0 tabs morphine 2 mg/mL intravenous 2 mg IV Q2HP PRN Severe Pain 04/02/24 syringe (7-10) #0 mL piperacillin-tazobactam 3.375 gram 3.375 g IV Q8H #0 ea 04/02/24 intravenous solution vancomycin 1.5 gram/300 mL in 1.5 g (300 mL) IV Q36H #0 mL 04/02/24 diluent combination IV piggyback Allergies Allergy/AdvReac Type Severity Reaction Status Date / Time No Known Allergies Allergy Verified 03/07/24 11:13 [facility] Disclaimer: The information contained in this section may have been updated after the patient was seen, as this information can be updated by other users. Medical History Breast cancer Hyperglycemia due to diabetes mellitus Left hand paresthesia Gangrenous cholecystitis Hypertension Diabetes mellitus Obesity Pancreatitis Heart murmur, systolic Renal insufficiency Anemia Cholelithiasis Surgical History History of bladder surgery History of cholecystectomy H/O breast biopsy H/O lumpectomy History of total abdominal hysterectomy and bilateral salpingo-oophorectomy Family History Father Stroke Mother CHF (congestive heart failure) Social History Smoking Status: Never smoker second hand exposure: Yes alcohol intake: never substance use type: denies use current occupational status: retired Travel in the last 8 weeks: None household members: none housing: house current occupational exposures/hazards: No caffeine: Yes Have you lived/traveled outside [place] in past 30 days?: No Contact w/someone who lives/traveled outside [place] past 30 days?: No Exposure to someone with infectious disease in past 14 days?: No Do you have a fever (greater than 100.4 F or 38 C)?: Yes Have you tested positive for COVID-19: No Exposed to someone with COVID-19 in past 14 days?: No Do you have a sore throat?: No Do you have a cough?: No Do you have any weakness?: Yes Do you have any diarrhea?: No Are you experiencing any unusual bleeding?: No Do you have any muscle aches/pain?: No Do you have any abdominal pain?: No Are you experiencing loss of taste or smell?: No Other Medical History Have you received the Flu Vaccine for this season: No Have you received the Pneumonia Vaccine: No ROS Obtained: Yes Systems reviewed as appropriate & no additional complaints except as documented Constitutional Constitutional: Reports as per HPI Physical Exam General General appearance: alert Head Head exam: normocephalic Eye Eye exam: Present PERRL and EOMI ENT ENT exam: Present normal oropharynx and mucous membranes moist Neck Neck exam: Present full ROM and trachea midline Respiratory Respiratory exam: Present normal lung sounds bilaterally Cardiovascular Cardiovascular exam: Present regular rate, normal rhythm, normal heart sounds, +S1 and +S2 Abdominal Exam Abdominal exam: Present tenderness and diminished bowel sounds Abdominal tenderness: Present LUQ and LLQ Extremities Exam Extremities exam: Present full ROM and normal capillary refill Neurological Exam Neurological exam: Present alert and oriented X3 Skin Skin exam: Present warm, dry and intact Medical Decision Making Medical Records Screening: Per USPSTF and CDC recommendations, given the prevalence of disease in our region, it is our hospital?s policy to screen for HIV and viral Hepatitis for all patients aged 18 and over and those with ongoing risk factors. Lobo Inquiry Pt receiving controlled substance: No Lobo was queried for this patient: No Vital Signs: 04/16/24 16:50 04/16/24 18:30 04/16/24 19:00 Temperature 98.5 F Temperature Source Oral Pulse Rate 91 H 86 Pulse Rate [Radial] 89 Respiratory Rate 20 Blood Pressure 120/50 L 126/67 Blood Pressure [Right Arm] 124/69 Blood Pressure Mean [Right Arm] 87 Blood Pressure Source [Right Arm] Automatic Cuff Blood Pressure Position [Right Arm] Sitting 02 Sat by Pulse Oximetry 97 97 98 Oxygen Delivery Method Room Air Room Air 04/16/24 19:30 04/16/24 20:00 Temperature Temperature Source Pulse Rate 85 87 Pulse Rate [Radial] Respiratory Rate Blood Pressure 113/55 L 122/69 Blood Pressure [Right Arm] Blood Pressure Mean [Right Arm] Blood Pressure Source [Right Arm] Blood Pressure Position [Right Arm] 02 Sat by Pulse Oximetry 97 97 Oxygen Delivery Method Lab Data Lab Results 04/16/24 17:10: VBG Lactic Acid 1.8 04/16/24 17:40: WBC 8.7, RBC 3.48 L, Hgb 9.4 L, Hct 30.4 L, MCV 87.4, MCH 27.0, MCHC 30.9 L, RDW 15.2, Plt Count 883 H, MPV 8.8, Neut % (Auto) 83.9 H, Lymph % (Auto) 13.4, Summers % (Auto) 2.3, Eos % (Auto) 0.0 L, Baso % (Auto) 0.1, Neut # (Auto) 7.3, Lymph # (Auto) 1.2, Summers # (Auto) 0.2, Eos # (Auto) 0.0, Baso # (Auto) 0.0, Sodium 136, Potassium 3.6, Chloride 105, Carbon Dioxide 21 L, Anion Gap 13.6, BUN 26 H, Creatinine 1.50 H, Estimated Creat Clear 39, Estimated GFR 34 L, Est GFR ( Amer) 41 L, Glucose 99, Calcium 8.2 L, Magnesium 1.8, Total Bilirubin 0.6, AST 54 H, ALT 27, Alkaline Phosphatase 101, Total Protein 6.3, Albumin 2.9 L, Globulin 3.4 H, Albumin/Globulin Ratio 0.9 L, Lipase 91, SARS-CoV-2 (PCR) Not detected, Influenza A Untype (PCR) Not detected, Influenza Type B (PCR) Not detected 04/16/24 17:40 04/16/24 17:40 Orders (Tests/Meds): ED MEDICATIONS Generic Name Dose Route Start Last Admin Trade Name Freq PRN Reason Stop Dose Admin Sodium Chloride 10 ml 04/16/24 18:24 04/16/24 18:24 Sodium Chloride 0.9% 10ml Syr (Rad Only) IV 05/16/24 18:23 10 ml NEEDED PRN Administration Maintain IV Site Discontinued Medications Generic Name Dose Route Start Last Admin Trade Name Freq PRN Reason Stop Dose Admin Sodium Chloride 1,000 mls @ 999 mls/hr 04/16/24 17:00 04/16/24 17:47 Sod Chlor 0.9% 1000ml Bag IV 04/16/24 18:00 999 mls/hr .Q1H1M ONE Administration Iopamidol 75 ml 04/16/24 18:24 04/16/24 18:24 Iopamidol-370 (76%);100ml Bottle IV 04/16/24 18:25 75 ml ONCE ONE Administration Ketorolac Tromethamine 15 mg 04/16/24 17:00 04/16/24 17:47 Ketorolac 30mg/Ml Vial IV 04/16/24 17:01 15 mg ONCE ONE Administration ORDERS Category Date Time Status CT abdomen pelvis w con Stat Cat Scan 04/16/24 17:00 Completed CBC [Complete Blood Count Auto Diff] Stat Lab 04/16/24 17:40 Completed Comprehensive Metabolic Panel Stat Lab 04/16/24 17:40 Completed Lactate Venous Stat Lab 04/16/24 17:10 Completed Lipase Stat Lab 04/16/24 17:40 Completed Magnesium Stat Lab 04/16/24 17:40 Completed Rapid PCR Covid and Flu A/B Stat Lab 04/16/24 17:40 Completed Urinalysis and Microscopic Stat Lab 04/16/24 17:00 Ordered Medical Decision Narrative: Insert review patient is a 78-year-old female presenting to the emergency department for evaluation of left-sided abdominal pain that started last night after she had a small fever that went away later in the evening. Patient has a fistula that she has been hospitalized at for specifically 04 02-04 05. She was discharged and sent to skilled nursing. She was scheduled for colonoscopy for the of this month and then surgery on the of next month by Dr. Hagen. Patient has not been tolerating food or fluids today. She last ate and drink yesterday. Patient has been scanned and labs were completed initially. Patient has been hemodynamically stable and nontoxic-appearing and afebrile while here in the ED.. Differential diagnosis includes small bowel obstruction, sepsis, worsening problems with her fistula among others. After seeing labs they were nonactionable for the most part. CT scan showed small bowel obstruction as well as a large bowel obstruction. She has a colovesicular fistula. She has right lower quadrant fluid present. The radiologist called it ascites or an abscess these could not be excluded or differentiated. I talked to patient and family about transfer to . They agreed. I called transfer center and talk to Dr. Hewitt and Dr. Noonan. Dr. Noonan accepted patient a direct admit to the surgery service. Patient has remained stable throughout her stay here in the ED. She has been given Toradol for pain and IV fluids. Will send patient ACLS via EMS. Critical Care Critical Care Time Critical Care Time: No
[2024-04-16] MEDS: KETOROLAC 30MG/ML VIAL 15 MG IV (17:47)
[2024-04-16] MEDS: 0.9 % SODIUM CHLORIDE 1000ML 1,000 ML 999 ML IV (17:47)
[2024-04-16 17:51] LABS: Coronavirus 19, PCR Not Detected (NotDetected); Influenza A, PCR Not Detected (NotDetected); Influenza B, PCR Not Detected (NotDetected)
[2024-04-16 17:54] LABS: Basophils % 0.1 % (0.1-2.0); Hematocrit 30.4 % (37.0-47.0); Hemoglobin 9.4 g/dL (12.2-16.2); Lymphocytes # 1.2 K/mm3 (0.7-4.5); Lymphocytes % 13.4 % (10-50); Mean Corpuscular HGB Conc 30.9 g/dL (31.8-35.4); Mean Corpuscular Volume 87.4 fl (81-99); Mean Platelet Volume 8.8 fl (7.4-10.4); Monocytes # 0.2 K/mm3 (0.1-1.0); Monocytes % 2.3 % (1.7-9.3); Neutrophils # 7.3 K/mm3 (1.8-7.8); Neutrophils % 83.9 % (37.0-80.0); Platelet Count 883 K/mm3 (142-424); Red Blood Count 3.48 M/mm3 (4.20-5.40); Red Cell Distribution Width 15.2 % (11.5-17.5); White Blood Count 8.7 K/mm3 (4.8-10.8)
[2024-04-16 18:03] LABS: Albumin Level 2.9 g/dl (3.5-5.0); Chloride 105 mmol/L (98-107); Potassium 3.6 mmoL/L (3.5-5.1); Sodium 136 mmol/L (136-145)
[2024-04-16 18:05] LABS: Alanine Aminotransferase 27 U/L (12-78); Aspartate Amino Transferase 54 U/L (14-36); Blood Urea Nitrogen 26 mg/dl (7-17); Creatinine Clearance Estimated 39 mL/min (50-200); Estimated Glomerular Filt Rate 34 ml/min (>60); GFR (African American) 41 ML/MIN (>60)
[2024-04-16 18:06] LABS: Lactate Venous 1.8 mmol/L (0.4-2.0)
[2024-04-16 18:06] LABS: Albumin/Globulin Ratio 0.9 (1.1-1.8); Alkaline Phosphatase 101 U/L (38-126); Anion Gap 13.6 mEq/L (5-15); Bilirubin,Total 0.6 mg/dl (0.2-1.3); Calcium 8.2 mg/dl (8.4-10.2); Carbon Dioxide 21 mmol/L (22.0-30.0); Globulin 3.4 g/dL (1.3-3.2); Glucose 99 mg/dl (74-100); Lipase 91 U/L (23-300); Magnesium 1.8 mg/dl (1.6-2.3); Total Protein,Serum 6.3 g/dl (6.3-8.2)
--- NOTE | 2024-04-16 18:18 | PC.NURSE ---
PT TO CT
[2024-04-16] MEDS: SODIUM CHLORIDE 0.9% 10ML SYR (RAD ONLY) 10 ML IV (18:24)
[2024-04-16] MEDS: IOPAMIDOL-370 (76%);100ML BOTTLE 75 ML IV (18:24)
--- NOTE | 2024-04-16 19:00 | PC.NURSE ---
Patient is resting; No needs at this time
--- NOTE | 2024-04-16 20:02 | PC.NURSE ---
patient is resting; no needs at this time
--- NOTE | 2024-04-16 22:07 | PC.NURSE ---
EMS here to get patient
== END 2024-04-16 22:13 | disposition other institution (70) ==
PROVIDERS: Nurse Practitioner; Emergency Provider Emergency Medicine; PCP Family Medicine
DX: K56.609 Unspecified intestinal obstruction, unspecified as to partial versus complete obstruction (principal); R10.32 Left lower quadrant pain
CPT/HCPCS: 74177; 80053; 83605; 83690; 83735; 85025; 87636; 96361; 96374; 96375; 99285; J1885; J7030; Q9967